=== PATIENT | female | born 1975 | race American Indian/Alaskan Native ===

== ENCOUNTER 2019-04-06 17:30 | Emergency (ER) | payer MEDICAID ==
--- NOTE | 2019-04-06 17:37 | EDM.PDOC ---
ED HPI GENERAL MEDICAL PROBLEM - General Chief Complaint: Back Pain or Injury Stated Complaint: AMBULANCE Time Seen by Provider: 04/06/19 17:37 Source of Information: Reports: Patient, EMS, EMS Notes Reviewed, RN, RN Notes Reviewed History Limitations: Reports: No Limitations - History of Present Illness INITIAL COMMENTS - FREE TEXT/NARRATIVE: Pt to ER per [facility] with c/o body aches, left flank pain, and lower abdominal pain. States she has had the chills but is unsure of fever. Denies N/V/D. States she has hx of low back pain. Denies urinary sx frequency, urgency, burning with urination. Denies chances of . Onset: Gradual Duration: Constant Location: Reports: Back Quality: Reports: Ache, Dull Severity: Moderate Improves with: Reports: None Worsens with: Reports: None Bilateral Lower Back Pain Score (Numeric/FACES): 8 - Related Data Allergies Allergy/AdvReac Type Severity Reaction Status Date / Time celecoxib Allergy Other Verified 04/06/19 17:21 hydrocodone Allergy Nausea and Verified 04/06/19 17:21 Vomiting ibuprofen Allergy Nausea and Verified 04/06/19 17:21 Vomiting ketorolac Allergy Nausea and Verified 04/06/19 17:21 Vomiting naproxen Allergy Other Verified 04/06/19 17:21 tramadol HCl [From Ultra] Allergy Other Verified 04/06/19 17:21 Home Meds: Home Meds Acetaminophen 2 tab PO Q6H PRN 07/11/15 [History] Ferrous Sulfate 1 tab PO DAILY 07/11/15 [History] Ibuprofen 600 mg PO 04/06/19 [History] Past Medical History HEENT History: Reports: None Cardiovascular History: Reports: Hypertension Respiratory History: Reports: None Genitourinary History: Reports: None 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 - Infectious Disease History Infectious Disease History: Reports: Chicken Pox - Past Surgical History Head Surgeries/Procedures: Reports: None GI Surgical History: Reports: Cholecystectomy Female Surgical History: Reports: Section Social & Family History - Family History Family Medical History: Noncontributory - Tobacco Use Smoking Status *Q: Current Some Day Smoker Years of Tobacco use: 30 Packs/Tins Daily: 0.5 Second Hand Smoke Exposure: No - Caffeine Use Caffeine Use: Reports: Coffee, Soda - Alcohol Use Date of Last Drink: 04/02/19 - Recreational Drug Use Recreational Drug Use: No - Living Situation & Occupation Living situation: Reports: with Family ED ROS GENERAL - Review of Systems Review Of Systems: ROS reveals no pertinent complaints other than HPI. ED EXAM,LOWER BACK PAIN/INJURY - Physical Exam Exam: See Below Exam Limited By: No Limitations General Appearance: Alert, WD/WN, No Apparent Distress Eye Exam: Bilateral Eye: EOMI, Normal Inspection Ears: Normal External Exam, Hearing Grossly Normal Nose: Normal Inspection Throat/Mouth: Normal Inspection, Normal Voice, No Airway Compromise Head: Atraumatic, Normocephalic Neck: Normal Inspection, Supple, Non-Tender, Full Range of Motion Respiratory/Chest: No Respiratory Distress, Lungs Clear, Normal Breath Sounds, No Accessory Muscle Use, Chest Non-Tender Cardiovascular: Normal Peripheral Pulses, Regular Rate, Rhythm, No Edema, No Gallop, No JVD, No Murmur, No Rub GI/Abdominal: Normal Bowel Sounds, Soft, Non-Tender (Female) Exam: Deferred Rectal (Female) Exam: Deferred Back Exam: Normal Inspection, Full Range of Motion, CVA Tenderness (L). No: CVA Tenderness (R) Extremities: Normal Inspection, Normal Range of Motion, Non-Tender, No Pedal Edema, Normal Capillary Refill Neurological: Alert, Normal Mood/Affect, Normal Dorsiflexion, CN II-XII Intact, Normal Plantar Flexion, Normal Gait, Normal Reflexes, No Motor/Sensory Deficits , Oriented x 3 Psychiatric: Normal Mood, Flat Affect Skin Exam: Warm, Dry, Intact, Normal Color, No Rash Lymphatic: No Adenopathy Course - Vital Signs Last Recorded V/S: Last Vital Signs Temp 102.8 F H 04/06/19 18:39 Pulse 114 H 04/06/19 18:39 Resp 20 04/06/19 18:39 BP 148/92 H 04/06/19 18:39 Pulse Ox 100 04/06/19 18:39 - Orders/Labs/Meds Orders: Active Orders 24 hr Category Date Time Status CULTURE URINE [RM] Stat Lab 04/06/19 17:44 Received Labs: Laboratory Tests 04/06/19 04/06/19 04/06/19 Range/Units 17:44 17:44 18:13 WBC 9.8 (5.0-10.0) 10^3/uL RBC 4.67 (4.2-5.4) 10^6/uL Hgb 9.5 L (12.0-16.0) g/dL Hct 32.2 L (37.0-47.0) % MCV 69.0 L (80-100) fL MCH 20.3 L (27.0-34.0) pg MCHC 29.5 L (33.0-35.0) g/dL Plt Count 255 (150-450) 10^3/uL Neut % (Auto) 91.6 H (42.2-75.2) % Lymph % (Auto) 5.6 L (20.5-50.1) % [place] % (Auto) 2.4 (2-8) % Eos % (Auto) 0.2 L (1.0-3.0) % Baso % (Auto) 0.2 (0.0-1.0) % Sodium (135-145) mmol/L Potassium (3.6-5.0) mmol/L Chloride (101-111) mmol/L Carbon Dioxide (21.0-31.0) mmol/L Anion Gap BUN (7-18) mg/dL Creatinine (0.6-1.3) mg/dL Est Cr Clr Drug Dosing mL/min Estimated GFR (MDRD) BUN/Creatinine Ratio Glucose (74-105) mg/dL Calcium (8.4-10.2) mg/dl Total Bilirubin (0.2-1.0) mg/dL AST (10-42) IU/L ALT (10-60) IU/L Alkaline Phosphatase (42-121) IU/L Total Protein (6.7-8.2) g/dl Albumin (3.2-5.5) g/dl Globulin Albumin/Globulin Ratio Urine Color Yellow (YELLOW) Urine Appearance Slightly cloudy (CLEAR) Urine pH 7.5 (5.0-9.0) Ur Specific [place] 1.015 (1.005-1.030) Urine Protein 100 H (NEGATIVE) Urine Glucose (UA) Negative (NEGATIVE) Urine Ketones Trace H (NEGATIVE) Urine Occult Blood Small H (NEGATIVE) Urine Nitrite Positive H (NEGATIVE) Urine Bilirubin Negative (NEGATIVE) Urine Urobilinogen 2.0 H (0.2-1.0) mg/dL Ur Leukocyte Esterase Large H (NEGATIVE) Urine RBC 5-10 H /HPF Urine WBC >100 H (0-5/HPF) /HPF Ur Epithelial Cells Moderate H (NOT SEEN) /HPF Amorphous Sediment Few (NOT SEEN) /HPF Urine Bacteria Many H (0-FEW/HPF) /HPF Urine Mucus Rare (NOT SEEN) /LPF Urine Other See note Urine HCG, Qual Negative 04/06/19 Range/Units 18:13 WBC (5.0-10.0) 10^3/uL RBC (4.2-5.4) 10^6/uL Hgb (12.0-16.0) g/dL Hct (37.0-47.0) % MCV (80-100) fL MCH (27.0-34.0) pg MCHC (33.0-35.0) g/dL Plt Count (150-450) 10^3/uL Neut % (Auto) (42.2-75.2) % Lymph % (Auto) (20.5-50.1) % [place] % (Auto) (2-8) % Eos % (Auto) (1.0-3.0) % Baso % (Auto) (0.0-1.0) % Sodium 134 L (135-145) mmol/L Potassium 3.7 (3.6-5.0) mmol/L Chloride 102 (101-111) mmol/L Carbon Dioxide 23.0 (21.0-31.0) mmol/L Anion Gap 12.7 BUN 15 (7-18) mg/dL Creatinine 0.6 (0.6-1.3) mg/dL Est Cr Clr Drug Dosing 92.17 mL/min Estimated GFR (MDRD) > 60 BUN/Creatinine Ratio 25.00 Glucose 104 (74-105) mg/dL Calcium 8.2 L (8.4-10.2) mg/dl Total Bilirubin 1.6 H (0.2-1.0) mg/dL AST 25 (10-42) IU/L ALT 18 (10-60) IU/L Alkaline Phosphatase 74 (42-121) IU/L Total Protein 7.8 (6.7-8.2) g/dl Albumin 3.6 (3.2-5.5) g/dl Globulin 4.2 Albumin/Globulin Ratio 0.86 Urine Color (YELLOW) Urine Appearance (CLEAR) Urine pH (5.0-9.0) Ur Specific [place] (1.005-1.030) Urine Protein (NEGATIVE) Urine Glucose (UA) (NEGATIVE) Urine Ketones (NEGATIVE) Urine Occult Blood (NEGATIVE) Urine Nitrite (NEGATIVE) Urine Bilirubin (NEGATIVE) Urine Urobilinogen (0.2-1.0) mg/dL Ur Leukocyte Esterase (NEGATIVE) Urine RBC /HPF Urine WBC (0-5/HPF) /HPF Ur Epithelial Cells (NOT SEEN) /HPF Amorphous Sediment (NOT SEEN) /HPF Urine Bacteria (0-FEW/HPF) /HPF Urine Mucus (NOT SEEN) /LPF Urine Other Urine HCG, Qual Meds: Medications Discontinued Medications Generic Name Dose Route Start Last Admin Trade Name Freq PRN Reason Stop Dose Admin Nitrofurantoin Macrocrystals 100 mg 04/06/19 18:58 04/06/19 19:04 Macrobid PO 04/06/19 18:59 100 mg ONETIME ONE Administration Departure - Departure Time of Disposition: 19:14 Disposition: Home, Self-Care 01 Condition: Fair Clinical Impression: Bacterial vaginosis UTI (urinary tract infection) Qualifiers: Urinary tract infection type: site unspecified Hematuria presence: without hematuria Qualified Code(s): N39.0 - Urinary tract infection, site not specified - Discharge Information *PRESCRIPTION DRUG MONITORING PROGRAM REVIEWED*: No *COPY OF PRESCRIPTION DRUG MONITORING REPORT IN PATIENT ELIZABETH: No Instructions: Urinary Tract Infection, Adult, [id number], Bacterial Vaginosis , [id number] Forms: ED Department Discharge Additional Instructions: RX: Macrobid, Flagyl Drink plenty of fluids May use Tylenol and/or Ibuprofen as directed for pain Follow up with your primary care facility if no improvement - My Orders Last 24 Hours: My Active Orders 04/06/19 17:44 CULTURE URINE [RM] Stat - Assessment/Plan Last 24 Hours: My Active Orders 04/06/19 17:44 CULTURE URINE [RM] Stat
[2019-04-06 18:40] VITALS: BP 148/92; PULSE 114
[2019-04-06 18:40] LABS: ANION GAP 12.7; CHLORIDE,CL 102 mmol/L (101-111); SODIUM,NA 134 mmol/L (135-145)
[2019-04-06] MEDS ORDERED: Nitrofurantoin Monohydrate/Macrocrystalline 100 MG Cap PO ONE (18:58)
[2019-04-06] MEDS ORDERED: metroNIDAZOLE 250 MG Tab PO ONE (19:16)
== END 2019-04-06 19:27 | disposition home or self-care (01) ==
LOC: DL.ED 17:30
DX: N76.0 Acute vaginitis (principal); N39.0 Urinary tract infection, site not specified; F17.210 Nicotine dependence, cigarettes, uncomplicated; D64.9 Anemia, unspecified; Z79.899 Other long term (current) drug therapy; Z88.8 Allergy status to other drugs, medicaments and biological substances
CPT/HCPCS: 36415; 80053; 81001; 81025; 85025; 87086; 99283; A9270; 87088; 87186

== ENCOUNTER 2019-09-10 19:25 | Emergency (ER) | payer MEDICAID, OTHER ==
[2019-09-10 19:42] VITALS: BP 180/95; PULSE 89
--- NOTE | 2019-09-10 19:45 | EDM.PDOC ---
ED HPI GENERAL MEDICAL PROBLEM - General Chief Complaint: Back Pain or Injury Stated Complaint: FELL AND HURT BACK Time Seen by Provider: 09/10/19 19:41 Source of Information: Reports: Patient History Limitations: Reports: No Limitations - History of Present Illness INITIAL COMMENTS - FREE TEXT/NARRATIVE: states fell onto low back this AM, tried advil but '0' using lido patch still '0 '. Lower Back Pain Score (Numeric/FACES): 9 - Related Data Allergies Allergy/AdvReac Type Severity Reaction Status Date / Time celecoxib Allergy Other Verified 09/10/19 19:33 hydrocodone Allergy Nausea and Verified 09/10/19 19:33 Vomiting ketorolac Allergy Nausea and Verified 09/10/19 19:33 Vomiting naproxen Allergy Other Verified 09/10/19 19:33 tramadol HCl [From Ultra] Allergy Other Verified 09/10/19 19:33 Home Meds: Home Meds Acetaminophen 2 tab PO Q6H PRN 07/11/15 [History] Ibuprofen 600 mg PO ASDIRECTED 04/06/19 [History] Past Medical History HEENT History: Reports: None Cardiovascular History: Reports: None Respiratory History: Reports: None Genitourinary History: Reports: None 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 - Infectious Disease History Infectious Disease History: Reports: Chicken Pox - Past Surgical History Head Surgeries/Procedures: Reports: None GI Surgical History: Reports: Cholecystectomy Female Surgical History: Reports: Section Social & Family History - Family History Family Medical History: Noncontributory - Caffeine Use Caffeine Use: Reports: Coffee - Living Situation & Occupation Living situation: Reports: with Family ED ROS GENERAL - Review of Systems Review Of Systems: Comprehensive ROS is negative, except as noted in HPI. ED EXAM,LOWER BACK PAIN/INJURY - Physical Exam Exam: See Below Exam Limited By: No Limitations General Appearance: Alert, WD/WN, Mild Distress, Other (tearful) Ears: Hearing Grossly Normal Throat/Mouth: Normal Voice, No Airway Compromise Head: Atraumatic Neck: Non-Tender, Full Range of Motion Respiratory/Chest: No Respiratory Distress Cardiovascular: Regular Rate, Rhythm GI/Abdominal: Soft, Non-Tender Back Exam: Muscle Spasm, Paraspinal Tenderness, Other (left LS region with minimal sciatica, NV wnl, gait limited to pain) Neurological: Alert, No Motor/Sensory Deficits, Oriented x 3 Psychiatric: Tearful Skin Exam: Warm, Dry, Normal Color Lymphatic: No Adenopathy Course - Vital Signs Last Recorded V/S: Last Vital Signs Temp 36.3 C 09/10/19 19:36 Pulse 89 09/10/19 19:36 Resp 20 09/10/19 19:36 BP 180/95 H 09/10/19 19:36 Pulse Ox 99 09/10/19 19:36 - Orders/Labs/Meds Orders: Active Orders 24 hr Category Date Time Status Lumbar Spine 2 or 3V [CR] Urgent Exams 09/10/19 19:40 Taken Orphenadrine [Norflex] Med 09/10/19 20:24 Once 60 mg IM ONETIME ONE - Re-Assessments/Exams Free Text/Narrative Re-Assessment/Exam: 09/10/19 20:25 results discussed with pt who states lido patch works little. Departure - Departure Time of Disposition: 20:25 Disposition: Home, Self-Care 01 Condition: Good Clinical Impression: Lumbar contusion Qualifiers: Encounter type: initial encounter Qualified Code(s): S30.0XXA - Contusion of lower back and pelvis, initial encounter Low back pain Qualifiers: Chronicity: unspecified Back pain laterality: left Sciatica presence: without sciatica Qualified Code(s): M54.5 - Low back pain - Discharge Information Forms: ED Department Discharge Additional Instructions: 1) rest and avoid bending lifting straining 2) try ice or heat to sore area 3) follow up at clinic 4) may try muscle relaxant Sepsis Event Note - Focused Exam Vital Signs: Vital Signs Temp Pulse Resp BP Pulse Ox 09/10/19 19:36 36.3 C 89 20 180/95 H 99 Date Exam was Performed: 09/10/19 Time Exam was Performed: 20:25 - My Orders Last 24 Hours: My Active Orders 03/28/20 19:40 Lumbar Spine 2 or 3V [CR] Urgent 09/10/19 20:24 Orphenadrine [Norflex] 60 mg IM ONETIME ONE - Assessment/Plan Last 24 Hours: My Active Orders 09/10/19 19:40 Lumbar Spine 2 or 3V [CR] Urgent 09/10/19 20:24 Orphenadrine [Norflex] 60 mg IM ONETIME ONE
== END 2019-09-10 20:57 | disposition home or self-care (01) ==
LOC: DL.ED 19:25
DX: S30.0XXA Contusion of lower back and pelvis, initial encounter (principal); Z88.6 Allergy status to analgesic agent; Z88.8 Allergy status to other drugs, medicaments and biological substances; W19.XXXA Unspecified fall, initial encounter
CPT/HCPCS: 72100; 96372; 99283; J2360

== ENCOUNTER 2020-03-22 13:18 | Emergency (ER) | payer MEDICAID ==
[2020-03-22 13:15] VITALS: BP 131/91; PULSE 104
[2020-03-22] MEDS ORDERED: Sodium Chloride 0.9% 10 ML Syringe FLUSH PRN (13:27)
--- NOTE | 2020-03-22 13:53 | CR ---
PROCEDURE INFORMATION: Exam: XR Chest, 1 View Exam date and time: 03/22/2020 1:41 PM Age: 44 years old Clinical indication: Chest pain; Type not specified TECHNIQUE: Imaging protocol: XR of the chest Views: 1 view. COMPARISON: CR Chest 1V Frontal 02/22/2019 2:16 PM FINDINGS: Lungs: Mild gradual hazy increased opacity at the left lower chest is likely related to overlying breast tissue, favored over hazy infiltrate. No dense consolidation or adryan pulmonary edema. Pleural space: Unremarkable. No pleural effusion. No pneumothorax. Heart/Mediastinum: Unremarkable. No cardiomegaly. Vasculature: Aorta is slightly tortuous. Bones/joints: No acute osseous abnormality. IMPRESSION: 1. No acute cardiopulmonary abnormality. Minimal hazy opacity at the left lower chest is likely related to overlying breast tissue rather than hazy infiltrate.
--- NOTE | 2020-03-22 13:53 | EDM.PDOC ---
ED HPI GENERAL MEDICAL PROBLEM - General Chief Complaint: Chest Pain Stated Complaint: AMBULANCE Time Seen by Provider: 03/22/20 13:18 Source of Information: Reports: Patient, EMS, RN, RN Notes Reviewed History Limitations: Reports: No Limitations - History of Present Illness INITIAL COMMENTS - FREE TEXT/NARRATIVE: Patient presents to the ED via EMS from [facility] with complaints of CP. Per the patient, the chest pain started abruptly about 1030 this morning. She describes the pain as 8/10 pressure to her midchest, which radiates through to her back. She denies shortness of breath, palpitations, fever, cough, nausea, vomiting. She denies experiencing similar pain priorly. She reports no aggravating factors and denies any strenuous activity when the pain began. The patient states she did take her Losartan this morning, but has not taken any additional medications. Treatments CHEF: Reports: Aspirin, IV/IO, NSAIDS, Other Medication(s), Oxygen Mid-Anterior Chest Pain Score (Numeric/FACES): 6 - Related Data Allergies Allergy/AdvReac Type Severity Reaction Status Date / Time celecoxib Allergy Other Verified 03/22/20 13:29 hydrocodone Allergy Nausea and Verified 03/22/20 13:29 Vomiting ketorolac Allergy Nausea and Verified 03/22/20 13:29 Vomiting naproxen Allergy Other Verified 03/22/20 13:29 tramadol HCl [From Ultram] Allergy Other Verified 03/22/20 13:29 Home Meds: Home Meds Acetaminophen 2 tab PO Q6H PRN 07/11/15 [History] Ibuprofen 600 mg PO ASDIRECTED 04/06/19 [History] Baclofen 10 mg PO BEDTIME PRN 03/22/20 [History] Calcium Citrate/Vitamin D3 [Calcium Citrate - Vit D Caplet] 1 each PO 03/22/20 [History] Chlorthalidone 25 mg PO DAILY 03/22/20 [History] Cholecalciferol (Vitamin D3) [Vitamin D] 1,000 unit PO DAILY 03/22/20 [History] Ferrous Gluconate 324 mg PO 03/22/20 [History] Gabapentin [Neurontin] 600 mg PO BID 03/22/20 [History] Losartan [Cozaar] 50 mg PO DAILY 03/22/20 [History] Multivitamin 1 each PO DAILY 03/22/20 [History] Past Medical History HEENT History: Reports: None Cardiovascular History: Reports: None Respiratory History: Reports: None 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 - Infectious Disease History Infectious Disease History: Reports: Chicken Pox - Past Surgical History Head Surgeries/Procedures: Reports: None GI Surgical History: Reports: Cholecystectomy Female Surgical History: Reports: Section Social & Family History - Family History Family Medical History: Noncontributory - Caffeine Use Caffeine Use: Reports: Coffee - Living Situation & Occupation Living situation: Reports: with Family ED ROS GENERAL - Review of Systems Review Of Systems: Comprehensive ROS is negative, except as noted in HPI. ED EXAM, GENERAL - Physical Exam Exam: See Below Exam Limited By: No Limitations General Appearance: Alert, No Apparent Distress Throat/Mouth: Normal Voice, No Airway Compromise Head: Atraumatic, Normocephalic Neck: Normal Inspection, Supple, Non-Tender, Full Range of Motion Respiratory/Chest: No Respiratory Distress, Lungs Clear, Normal Breath Sounds, No Accessory Muscle Use, Chest Non-Tender Cardiovascular: Normal Peripheral Pulses, Regular Rate, Rhythm, No Edema, No Gallop, No JVD, No Murmur, No Rub, Tachycardia GI/Abdominal: Normal Bowel Sounds, Soft, Non-Tender, No Distention (Female) Exam: Deferred Rectal (Female) Exam: Deferred Extremities: Normal Inspection, Normal Range of Motion, No Pedal Edema, Normal Capillary Refill Neurological: Alert, Oriented, CN II-XII Intact, Normal Cognition, Normal Gait, No Motor/Sensory Deficits Psychiatric: Normal Affect, Normal Mood Skin Exam: Warm, Dry, Intact, Normal Color, No Rash EKG INTERPRETATION EKG Date: 03/22/20 Time: 13:19 Rhythm: Other (Sinus Tach) Rate (Beats/Min): 103 [place]: LAD-Left [place] Deviation P-Wave: Present QRS: Other (R wave progression with Q waves in anterior leads) ST-T: Normal QT: Prolonged (Borderline) Comparison: No Change (From 02/22/19) EKG Interpretation Comments: No acute ischemic changes Course - Vital Signs Last Recorded V/S: Last Vital Signs Temp 98.1 F 03/22/20 13:14 Pulse 104 H 03/22/20 13:14 Resp 16 03/22/20 13:14 BP 131/91 H 03/22/20 13:14 Pulse Ox 99 03/22/20 13:14 - Orders/Labs/Meds Orders: Active Orders 24 hr Category Date Time Status EKG 12 Lead [EKG Documentation Completion] [] STAT Care 03/22/20 13:23 Active EKG 12 Lead [EKG Documentation Completion] [] STAT Care 03/22/20 13:26 Active Peripheral IV Care [] . DIRECTED Care 03/22/20 13:27 Active CHLAMYDIA AND GONORRHEA BY TMA Routine Lab 03/22/20 13:32 Received Sodium Chloride 0.9% [Saline Flush] Med 03/22/20 13:27 Active 10 ml FLUSH ASDIRECTED PRN Peripheral IV Insertion Adult [OM.PC] Stat Oth 03/22/20 13:26 Ordered Medication Orders Sodium Chloride (Saline Flush) 10 ml FLUSH ASDIRECTED PRN PRN Reason: Keep Vein Open Labs: Laboratory Tests 03/22/20 03/22/20 03/22/20 Range/Units 13:32 13:32 13:32 WBC 5.7 (5.0-10.0) 10^3/uL RBC 4.35 (4.2-5.4) 10^6/uL Hgb 9.3 L (12.0-16.0) g/dL Hct 31.7 L (37.0-47.0) % MCV 72.9 L D (80-100) fL MCH 21.4 L (27.0-34.0) pg MCHC 29.3 L (33.0-35.0) g/dL Plt Count 304 (150-450) 10^3/uL Neut % (Auto) 60.0 (42.2-75.2) % Lymph % (Auto) 25.0 (20.5-50.1) % [place] % (Auto) 13.7 H (2-8) % Eos % (Auto) 0.9 L (1.0-3.0) % Baso % (Auto) 0.4 (0.0-1.0) % D-Dimer, Quantitative (0-400) ng/mL Sodium (136-145) mmol/L Potassium (3.5-5.1) mmol/L Chloride (98-107) mmol/L Carbon Dioxide (21-32) mmol/L Anion Gap (7-13) mEq/L BUN (7-18) mg/dL Creatinine (0.55-1.02) mg/dL Est Cr Clr Drug Dosing Estimated GFR (MDRD) BUN/Creatinine Ratio (No establ ref range) Glucose (74-99) mg/dL Calcium (8.5-10.1) mg/dL Magnesium (1.8-2.4) mg/dL Total Bilirubin (0.2-1.0) mg/dL AST (15-37) U/L ALT (14-59) U/L Alkaline Phosphatase (46-116) U/L Troponin I (0.000-0.056) ng/mL Total Protein (6.4-8.2) g/dL Albumin (3.4-5.0) g/dL Globulin Albumin/Globulin Ratio Amylase (25-115) U/L Lipase (73-393) U/L Urine Color (YELLOW) Urine Appearance (CLEAR) Urine pH (5.0-9.0) Ur Specific [place] (1.005-1.030) Urine Protein (NEGATIVE) Urine Glucose (UA) (NEGATIVE) Urine Ketones (NEGATIVE) Urine Occult Blood (NEGATIVE) Urine Nitrite (NEGATIVE) Urine Bilirubin (NEGATIVE) Urine Urobilinogen (0.2-1.0) mg/dL Ur Leukocyte Esterase (NEGATIVE) Urine RBC /HPF Urine WBC (0-5/HPF) /HPF Ur Epithelial Cells (NOT SEEN) /HPF Urine Bacteria (0-FEW/HPF) /HPF Urine Mucus (NOT SEEN) /LPF Urine HCG, Qual Negative Urine Opiates Screen Negative (NEGATIVE) Ur Oxycodone Screen Negative (NEGATIVE) Urine Methadone Screen Negative (NEGATIVE) Ur Barbiturates Screen Negative (NEGATIVE) U Tricyclic Antidepress Negative (NEGATIVE) Ur Phencyclidine Scrn Negative (NEGATIVE) Ur Amphetamine Screen Negative (NEGATIVE) U Methamphetamines Scrn Positive H (NEGATIVE) Urine MDMA Screen Negative (NEGATIVE) U Benzodiazepines Scrn Negative (NEGATIVE) Urine Cocaine Screen Negative (NEGATIVE) U Marijuana (THC) Screen Negative (NEGATIVE) 03/22/20 03/22/20 03/22/20 Range/Units 13:36 13:36 13:36 WBC (5.0-10.0) 10^3/uL RBC (4.2-5.4) 10^6/uL Hgb (12.0-16.0) g/dL Hct (37.0-47.0) % MCV (80-100) fL MCH (27.0-34.0) pg MCHC (33.0-35.0) g/dL Plt Count (150-450) 10^3/uL Neut % (Auto) (42.2-75.2) % Lymph % (Auto) (20.5-50.1) % [place] % (Auto) (2-8) % Eos % (Auto) (1.0-3.0) % Baso % (Auto) (0.0-1.0) % D-Dimer, Quantitative 171 (0-400) ng/mL Sodium 141 (136-145) mmol/L Potassium 3.6 (3.5-5.1) mmol/L Chloride 100 (98-107) mmol/L Carbon Dioxide 27 (21-32) mmol/L Anion Gap 17.6 H (7-13) mEq/L BUN 19 H (7-18) mg/dL Creatinine 0.64 (0.55-1.02) mg/dL Est Cr Clr Drug Dosing TNP Estimated GFR (MDRD) > 60 BUN/Creatinine Ratio 29.7 (No establ ref range) Glucose 92 (74-99) mg/dL Calcium 8.7 (8.5-10.1) mg/dL Magnesium 1.9 (1.8-2.4) mg/dL Total Bilirubin 0.9 (0.2-1.0) mg/dL AST 211 H (15-37) U/L ALT 373 H (14-59) U/L Alkaline Phosphatase 123 H (46-116) U/L Troponin I < 0.017 (0.000-0.056) ng/mL Total Protein 8.1 (6.4-8.2) g/dL Albumin 3.6 (3.4-5.0) g/dL Globulin 4.5 Albumin/Globulin Ratio 0.8 Amylase 40 (25-115) U/L Lipase 99 (73-393) U/L Urine Color Yellow (YELLOW) Urine Appearance Slightly cloudy (CLEAR) Urine pH 6.0 (5.0-9.0) Ur Specific [place] 1.025 (1.005-1.030) Urine Protein Trace H (NEGATIVE) Urine Glucose (UA) Negative (NEGATIVE) Urine Ketones Negative (NEGATIVE) Urine Occult Blood Trace-intact H (NEGATIVE) Urine Nitrite Negative (NEGATIVE) Urine Bilirubin Negative (NEGATIVE) Urine Urobilinogen 0.2 (0.2-1.0) mg/dL Ur Leukocyte Esterase Negative (NEGATIVE) Urine RBC 0-5 /HPF Urine WBC 0-5 (0-5/HPF) /HPF Ur Epithelial Cells Few (NOT SEEN) /HPF Urine Bacteria Moderate H (0-FEW/HPF) /HPF Urine Mucus Moderate H (NOT SEEN) /LPF Urine HCG, Qual Urine Opiates Screen (NEGATIVE) Ur Oxycodone Screen (NEGATIVE) Urine Methadone Screen (NEGATIVE) Ur Barbiturates Screen (NEGATIVE) U Tricyclic Antidepress (NEGATIVE) Ur Phencyclidine Scrn (NEGATIVE) Ur Amphetamine Screen (NEGATIVE) U Methamphetamines Scrn (NEGATIVE) Urine MDMA Screen (NEGATIVE) U Benzodiazepines Scrn (NEGATIVE) Urine Cocaine Screen (NEGATIVE) U Marijuana (THC) Screen (NEGATIVE) Meds: Medications Generic Name Dose Route Start Last Admin Trade Name Freq PRN Reason Stop Dose Admin Sodium Chloride 10 ml 03/22/20 13:27 Saline Flush FLUSH ASDIRECTED PRN Keep Vein Open Discontinued Medications Generic Name Dose Route Start Last Admin Trade Name Freq PRN Reason Stop Dose Admin Al Hydroxide/Mg Hydroxide 30 ml 03/22/20 14:38 03/22/20 14:47 Gi Cocktail PO 03/22/20 14:39 30 ml ONETIME ONE Administration Azithromycin 1,000 mg 03/22/20 14:38 03/22/20 14:46 Zithromax PO 03/22/20 14:39 1,000 mg ONETIME ONE Administration Ceftriaxone Sodium 1 gm/ 50 mls @ 100 mls/hr 03/22/20 14:39 03/22/20 14:53 Sodium Chloride IV 03/22/20 15:08 100 mls/hr ONETIME ONE Administration - Radiology Interpretation Free Text/Narrative:: CXR: No acute process. See Rad report. - Re-Assessments/Exams Free Text/Narrative Re-Assessment/Exam: 03/22/20 15:09 Call made to Angela Caraballo NP at [facility] to review findings of ER visit and ensure follow up. Departure - Departure Time of Disposition: 15:13 Disposition: Home, Self-Care 01 Condition: Good Clinical Impression: Atypical chest pain, Alcoholic liver disease, STD exposure Instructions: Nonspecific Chest Pain, Adult, [id number], Alcoholic Liver Disease, [id number] Forms: ED Department Discharge Additional Instructions: Rx: Omeprazole 20mg Abstain from alcohol and recreational drug use due to liver damage. Also avoid ibuprofen and tylenol. Follow up in clinic next week for recheck and further evaluation. Sepsis Event Note (ED) - Evaluation Sepsis Screening Result: No Definite Risk - Focused Exam Vital Signs: Vital Signs Temp Pulse Resp BP Pulse Ox 03/22/20 13:14 98.1 F 104 H 16 131/91 H 99
[2020-03-22 14:08] LABS: ANION GAP 17.6 mEq/L (7-13); CHLORIDE,CL 100 mmol/L (98-107); SODIUM,NA 141 mmol/L (136-145)
[2020-03-22] MEDS ORDERED: GI Cocktail Oral Solution 30 ML PO ONE (14:38)
[2020-03-22] MEDS ORDERED: Azithromycin 250 MG Tab PO ONE (14:38)
[2020-03-22] MEDS ORDERED: cefTRIAXone 1 GM in Sodium Chloride 0.9% 50 ML IV ONE (14:39)
[2020-03-26 16:02] LABS: C.TRACHOMATIS BY TMA Negative (Negative); N.GONORRHOEAE BY TMA Negative (Negative)
== END 2020-03-22 15:35 | disposition home or self-care (01) ==
LOC: DL.ED 13:18
DX: R07.89 Other chest pain (principal); K70.9 Alcoholic liver disease, unspecified; Z20.2 Contact with and (suspected) exposure to infections with a predominantly sexual mode of transmission; E66.9 Obesity, unspecified; Z68.28 Body mass index [BMI] 28.0-28.9, adult; Z88.8 Allergy status to other drugs, medicaments and biological substances; Z88.5 Allergy status to narcotic agent; Z88.6 Allergy status to analgesic agent
CPT/HCPCS: 36415; 71045; 80053; 80305; 81001; 81025; 82150; 83690; 83735; 84484; 85025; 85379; 87491; 87591; 93005; 96365; 99285; A9270; J0696; J7050; 93010; 99284

== ENCOUNTER 2020-10-10 03:48 | Emergency (ER) | payer MEDICAID, OTHER ==
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
[2020-10-10] MEDS ORDERED: Iopamidol 612 MG/ML 100 ML Bottle IVPUSH ONE (04:29)
[2020-10-10] MEDS ORDERED: Ondansetron 4 MG/2 ML SDV IVPUSH ONE (04:30)
[2020-10-10] MEDS ORDERED: fentaNYL 100 MCG/2 ML SDV IVPUSH ONE (04:30)
[2020-10-10 04:32] LABS: ANION GAP 14.9 mEq/L (7-13); CHLORIDE,CL 104 mmol/L (98-107); SODIUM,NA 138 mmol/L (136-145)
[2020-10-10] MEDS ORDERED: Sodium Chloride 0.9% 1,000 ML IV ONE (04:36)
[2020-10-10] MEDS ORDERED: Potassium Chloride 10 MEQ Tab.ER PO ONE (04:36)
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
[2020-10-10 07:05] VITALS: BP 144/89; PULSE 88
== END 2020-10-10 07:05 | disposition home or self-care (01) ==
LOC: DL.ED 03:48
DX: R07.81 Pleurodynia (principal); S30.1XXA Contusion of abdominal wall, initial encounter; Z87.891 Personal history of nicotine dependence; E66.9 Obesity, unspecified; Z88.5 Allergy status to narcotic agent; Z88.6 Allergy status to analgesic agent; Z79.899 Other long term (current) drug therapy; Z90.49 Acquired absence of other specified parts of digestive tract; Y04.0XXA Assault by unarmed brawl or fight, initial encounter
CPT/HCPCS: 36415; 71260; 74177; 80053; 80305; 80307; 81001; 82150; 83690; 85025; 85610; 96374; 96375; 99283; 99285; A9270; J2405; J3010; J7030; Q9967

== ENCOUNTER 2021-01-12 23:00 | Emergency (ER) | payer MEDICAID ==
[2021-01-12 23:10] VITALS: BP 130/80; PULSE 103
[2021-01-12 23:35] LABS: AMPHETAMINES,URINE NEGATIVE (NEGATIVE); BARBITURATES,URINE NEGATIVE (NEGATIVE); BENZODIAZEPINE,URINE NEGATIVE (NEGATIVE); MDMA (ECSTASY), URINE NEGATIVE (NEGATIVE); METHADONE,URINE NEGATIVE (NEGATIVE); METHAMPHETAMINES,URINE NEGATIVE (NEGATIVE); OPIATES,URINE NEGATIVE (NEGATIVE); OXYCODONE,URINE NEGATIVE (NEGATIVE); PHENCYCLIDINE,URINE NEGATIVE (NEGATIVE); TCA,URINE NEGATIVE (NEGATIVE)
[2021-01-12 23:48] LABS: ANION GAP 16.1 mEq/L (7-13); CHLORIDE,CL 107 mmol/L (98-107); SODIUM,NA 144 mmol/L (136-145)
[2021-01-12 23:53] LABS: ACETAMINOPHEN 0 ug/mL (10-30 (Therapeutic))
[2021-01-12] MEDS ORDERED: MVI, Adult with Vitamin K 10 ML, Folic Acid 1 MG, Thiamine 100 MG in Lactated Ringers 1... IV ONE ×4 (23:57)
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
--- NOTE | 2021-01-13 01:36 | CR ---
PROCEDURE INFORMATION: Exam: XR Chest Exam date and time: 01/12/2021 11:47 PM Age: 45 years old Clinical indication: Other: Chest pain TECHNIQUE: Imaging protocol: XR of the chest. Views: 1 view. COMPARISON: CR Chest 1V Frontal 03/22/2020 1:41 PM FINDINGS: Lungs: Unremarkable. No consolidation. Pleural spaces: Unremarkable. No pleural effusion. No pneumothorax. Heart/Mediastinum: Unremarkable. No cardiomegaly. Bones/joints: Unremarkable. IMPRESSION: 1. No acute findings. 2. No change
== END 2021-01-13 00:25 | disposition home or self-care (01) ==
LOC: DL.ED 23:00
DX: R07.89 Other chest pain (principal); F10.129 Alcohol abuse with intoxication, unspecified; I10 Essential (primary) hypertension; E66.9 Obesity, unspecified; Z68.30 Body mass index [BMI] 30.0-30.9, adult; Y90.8 Blood alcohol level of 240 mg/100 ml or more; Z87.891 Personal history of nicotine dependence; Z79.899 Other long term (current) drug therapy; Z88.6 Allergy status to analgesic agent; Z88.5 Allergy status to narcotic agent
CPT/HCPCS: 36415; 71045; 80053; 80143; 80179; 80305-QW; 80307; 81001; 82140; 82150; 83605; 83690; 84484; 85025; 87040; 93005; 99283; 99285-25

== ENCOUNTER 2021-02-22 20:16 | Emergency (ER) | payer MEDICAID ==
[2021-02-22 20:37] VITALS: BP 147/95; PULSE 107
[2021-02-22 21:34] LABS: ANION GAP 19.4 mEq/L (7-13); CHLORIDE,CL 102 mmol/L (98-107); SODIUM,NA 139 mmol/L (136-145)
[2021-02-22] MEDS ORDERED: Potassium Chloride 20 MEQ in Premix Bag 1 BAG IV ONE (21:50)
[2021-02-22] MEDS ORDERED: Potassium Chloride 10 MEQ Tab.ER PO ONE (23:20)
[2021-02-22] MEDS ORDERED: Azithromycin 250 MG Tab PO ONE (23:56)
[2021-02-22] MEDS ORDERED: cefTRIAXone 500 MG, Lidocaine 1% 1 ML IM ONE ×2 (23:56)
--- NOTE | 2021-02-23 00:04 | EDM.PDOC ---
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 Notes not had regular periord for two years. Reported to RN was in clinic and had STD testing done and was told to come back for treatment as gonorrhea positive. lower abdominal cramping at times. Back Pain Score (Numeric/FACES): 8 - Related Data Allergies Allergy/AdvReac Type Severity Reaction Status Date / Time celecoxib Allergy Other Verified 01/12/21 23:13 hydrocodone Allergy Nausea and Verified 01/12/21 23:13 Vomiting ketorolac Allergy Nausea and Verified 01/12/21 23:13 Vomiting naproxen Allergy Other Verified 01/12/21 23:13 tramadol HCl [From Ultram] Allergy Other Verified 01/12/21 23:13 Home Meds: Home Meds Acetaminophen 2 tab PO Q6H PRN 07/11/15 [History] Ibuprofen 600 mg PO ASDIRECTED 04/06/19 [History] Baclofen 10 mg PO BEDTIME PRN 03/22/20 [History] Calcium Citrate/Vitamin D3 [Calcium Citrate - Vit D Caplet] 1 each PO 03/22/20 [History] Chlorthalidone 25 mg PO DAILY 03/22/20 [History] Cholecalciferol (Vitamin D3) [Vitamin D] 1,000 unit PO DAILY 03/22/20 [History] Ferrous Gluconate 324 mg PO 03/22/20 [History] Gabapentin [Neurontin] 600 mg PO BID 03/22/20 [History] Losartan [Cozaar] 50 mg PO DAILY 03/22/20 [History] Multivitamin 1 each PO DAILY 03/22/20 [History] Past Medical History HEENT History: Reports: None Cardiovascular History: Reports: None Respiratory History: Reports: None Genitourinary History: Reports: None 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 - Infectious Disease History Infectious Disease History: Reports: Chicken Pox Other Infectious Disease History: no chicken pox at this time. prior hx of. - Past Surgical History Head Surgeries/Procedures: Reports: None GI Surgical History: Reports: Cholecystectomy Female Surgical History: Reports: Section Other Female Surgeries/Procedures: CYSTOSCOPY WITH BLADDER BIOPSY Social & Family History - Family History Family Medical History: No Pertinent Family History - Tobacco Use Tobacco Use Status *Q: Current Some Day Tobacco User Years of Tobacco use: 26 Packs/Tins Daily: 0.2 - Caffeine Use Caffeine Use: Reports: Coffee - Recreational Drug Use Recreational Drug Use: No - Living Situation & Occupation Living situation: Reports: with Family ED ROS GENERAL - Review of Systems Review Of Systems: Comprehensive ROS is negative, except as noted in HPI. ED EXAM, RENAL/ - Physical Exam Exam: See Below Exam Limited By: No Limitations General Appearance: Alert, Anxious, Mild Distress Eye Exam: Bilateral Eye: EOMI Ears: Normal External Exam Nose: Normal Inspection Throat/Mouth: Normal Inspection Head: Atraumatic, Normocephalic Neck: Normal Inspection Respiratory/Chest: No Respiratory Distress, Lungs Clear, Normal Breath Sounds Cardiovascular: Normal Peripheral Pulses, Regular Rate, Rhythm GI/Abdominal: Normal Bowel Sounds, Soft, Tender (suprapubic) (Female) Exam: Normal External Exam, Vaginal Bleeding. No: Cervix Motion Tenderness Extremities: Normal Inspection Neurological: Alert, Oriented Psychiatric: Normal Affect, Normal Mood Skin Exam: Warm, Dry, Intact, Normal Color Course - Vital Signs Last Recorded V/S: Last Vital Signs Temp 97 F 02/22/21 20:31 Pulse 107 H 02/22/21 20:31 Resp 18 02/22/21 20:31 BP 147/95 H 02/22/21 20:31 Pulse Ox 97 02/22/21 20:31 - Orders/Labs/Meds Labs: Laboratory Tests 02/22/21 02/22/21 02/22/21 Range/Units 20:52 20:52 20:52 WBC 6.2 (5.0-10.0) 10^3/uL RBC 3.61 L (4.2-5.4) 10^6/uL Hgb 8.8 L (12.0-16.0) g/dL Hct 28.4 L (37.0-47.0) % MCV 78.7 L (80-100) fL MCH 24.4 L (27.0-34.0) pg MCHC 31.0 L (33.0-35.0) g/dL Plt Count 188 (150-450) 10^3/uL Neut % (Auto) 55.0 (42.2-75.2) % Lymph % (Auto) 32.0 (20.5-50.1) % [place] % (Auto) 10.4 H (2-8) % Eos % (Auto) 2.3 (1.0-3.0) % Baso % (Auto) 0.3 (0.0-1.0) % Sodium 139 (136-145) mmol/L Potassium 2.4 L* (3.5-5.1) mmol/L Chloride 102 (98-107) mmol/L Carbon Dioxide 20 L (21-32) mmol/L Anion Gap 19.4 H (7-13) mEq/L BUN 16 (7-18) mg/dL Creatinine 0.59 (0.55-1.02) mg/dL Est Cr Clr Drug Dosing 91.82 mL/min Estimated GFR (MDRD) > 60 BUN/Creatinine Ratio 27.1 (No establ ref range) Glucose 92 (70-99) mg/dL Lactic Acid 2.0 (0.4-2.0) mmol/L Calcium 7.6 L (8.5-10.1) mg/dL Total Bilirubin 0.8 (0.2-1.0) mg/dL AST 54 H (15-37) U/L ALT 30 (14-59) U/L Alkaline Phosphatase 125 H (46-116) U/L Total Protein 7.6 (6.4-8.2) g/dL Albumin 3.1 L (3.4-5.0) g/dL Globulin 4.5 Albumin/Globulin Ratio 0.69 HCG, Qual Negative Meds: Medications Discontinued Medications Generic Name Dose Route Start Last Admin Trade Name Freq PRN Reason Stop Dose Admin Acetaminophen 650 mg 02/23/21 00:06 02/23/21 00:23 Acetaminophen 325 Mg Tab PO 02/23/21 00:07 650 mg NOW ONE Administration Azithromycin 1,000 mg 02/22/21 23:56 02/23/21 00:22 Azithromycin 250 Mg Tab PO 02/22/21 23:57 1,000 mg ONETIME ONE Administration Ceftriaxone Sodium 500 mg/ 0 mg 02/22/21 23:56 02/23/21 00:22 Lidocaine HCl 1 ml IM 02/22/21 23:57 1 inj ONETIME ONE Administration Potassium Chloride 20 meq/ 100 mls @ 50 mls/hr 02/22/21 21:50 02/22/21 21:59 Premix IV 02/22/21 23:49 50 mls/hr ONETIME ONE Administration Potassium Chloride 20 meq 02/22/21 23:20 02/23/21 00:22 Potassium Chloride 10 Meq Tab.Er PO 02/22/21 23:21 20 meq ONETIME ONE Administration - Re-Assessments/Exams Free Text/Narrative Re-Assessment/Exam: 02/23/21 00:00 refuses to provide UA. Appears under influence of stimulating substance. Small amount dark blood vaginal vault, CMT negative. Departure - Departure Time of Disposition: 00:02 Disposition: Home, Self-Care 01 Condition: Good Clinical Impression: Chronic anemia, Vaginal bleeding - Discharge Information *PRESCRIPTION DRUG MONITORING PROGRAM REVIEWED*: No *COPY OF PRESCRIPTION DRUG MONITORING REPORT IN PATIENT ELIZABETH: No Instructions: Postmenopausal Bleeding, Abnormal Uterine Bleeding, Sexually Transmitted Disease, [id number], Postmenopausal Bleeding, [id number] Referrals: PCP,None [Primary Care Provider] - Forms: ED Department Discharge Additional Instructions: Follow up if worsening of vaginal bleeding. Clinic follow up on Thursday if continued bleeding tylenol 500mg every 4 hours as needed for discomfort encourage fluids Sepsis Event Note (ED) - Evaluation Sepsis Screening Result: No Definite Risk - Focused Exam Vital Signs: Vital Signs Temp Pulse Resp BP Pulse Ox 02/22/21 20:31 97 F 107 H 18 147/95 H 97
[2021-02-23] MEDS ORDERED: Acetaminophen 325 MG Tab PO ONE (00:06)
== END 2021-02-23 00:32 | disposition home or self-care (01) ==
LOC: DL.ED 20:16
DX: N93.9 Abnormal uterine and vaginal bleeding, unspecified (principal); D64.9 Anemia, unspecified; Z88.5 Allergy status to narcotic agent; Z88.6 Allergy status to analgesic agent; Z72.0 Tobacco use
CPT/HCPCS: 36415; 80053; 83605; 84703; 85025; 96365; 96366; 96372; 99284; A9270; J0696; J3480

== ENCOUNTER 2021-06-09 02:44 | Emergency (ER) | payer MEDICAID ==
[2021-06-09] MEDS ORDERED: Losartan 50 MG Tab PO ONE (02:45)
[2021-06-09] MEDS ORDERED: Metoprolol Tartrate 5 MG/5 ML SDV IVPUSH ONE (03:08)
[2021-06-09 03:18] VITALS: PULSE 111
[2021-06-09] MEDS ORDERED: Nitroglycerin 0.4 MG Tab.SL SL ONE ×2 (03:25→04:11)
[2021-06-09 03:37] LABS: ANION GAP 18.4 mEq/L (7-13); CHLORIDE,CL 101 mmol/L (98-107); SODIUM,NA 139 mmol/L (136-145)
[2021-06-09 03:47] LABS: CORONAVIRUS COVID-19 NAA NEGATIVE (NEGATIVE)
[2021-06-09] MEDS ORDERED: Magnesium Sulfate/Water 2 GM in Premix Bag 1 BAG IV ONE (04:12)
[2021-06-09 04:14] VITALS: BP 148/96
--- NOTE | 2021-06-09 04:29 | CT ---
PROCEDURE INFORMATION: Exam: CT Head Without Contrast Exam date and time: 06/09/2021 3:52 AM Age: 46 years old Clinical indication: Other: Headaches; Additional info: HTN, intermittent headache, tingling legs TECHNIQUE: Imaging protocol: Computed tomography of the head without contrast. Radiation optimization: All CT scans at this facility use at least one of these dose optimization techniques: automated exposure control; mA and/or kV adjustment per patient size (includes targeted exams where dose is matched to clinical indication); or iterative reconstruction. COMPARISON: No relevant prior studies available. FINDINGS: Brain: Normal. No hemorrhage. Unremarkable white matter. No mass effect. Cerebral ventricles: No ventriculomegaly. Paranasal sinuses: Visualized sinuses are unremarkable. No fluid levels. Mastoid air cells: Visualized mastoid air cells are well aerated. Vasculature: Calcific densities are seen at the apices of the basal ganglia bilaterally possibly representing vascular calcifications. Bones/joints: Unremarkable. No acute fracture. Soft tissues: Unremarkable. IMPRESSION: There are no acute intracranial findings.
--- NOTE | 2021-06-09 04:29 | CR ---
PROCEDURE INFORMATION: Exam: XR Chest Exam date and time: 06/09/2021 3:55 AM Age: 46 years old Clinical indication: Other: HTN; Additional info: HTN, intermittent headache, tingling legs TECHNIQUE: Imaging protocol: XR of the chest. Views: 1 view. COMPARISON: No relevant prior studies available. FINDINGS: Lungs: Unremarkable. No consolidation. Pleural spaces: Unremarkable. No pleural effusion. No pneumothorax. Heart/Mediastinum: Unremarkable. No cardiomegaly. Bones/joints: There is a mild S-shaped curvature of the axial skeleton. Status post vertebroplasty L1. IMPRESSION: There are no acute chest findings.
[2021-06-09] MEDS ORDERED: GI Cocktail Oral Solution 30 ML PO ONE (05:14)
[2021-06-09] MEDS ORDERED: hydrALAZINE 20 MG/ML SDV IVPUSH ONE (05:14)
--- NOTE | 2021-06-09 06:02 | EDM.PDOC ---
ED HPI GENERAL MEDICAL PROBLEM - General Chief Complaint: Chest Pain Stated Complaint: AMBULANCE Time Seen by Provider: 06/09/21 03:05 Source of Information: Reports: Patient, EMS, RN History Limitations: Reports: No Limitations - History of Present Illness INITIAL COMMENTS - FREE TEXT/NARRATIVE: ED via [facility] with c/o chest pain and tingling in legs starting tonight. Reports ran out of BP and meds for anxiety. Stated had been 3-4 days since last Lorazepam. (Review of [place] Board of [facility] no Rx for Lorazepam in past year. has been on Gabapentin . EMS gave aspirin and one nitro. Reports midsternal pain. No cough fever or chills. No nausea. No weakness. No headache or blurred vision. - Related Data Allergies Allergy/AdvReac Type Severity Reaction Status Date / Time celecoxib Allergy Other Verified 01/12/21 23:13 hydrocodone Allergy Nausea and Verified 01/12/21 23:13 Vomiting ketorolac Allergy Nausea and Verified 01/12/21 23:13 Vomiting naproxen Allergy Other Verified 01/12/21 23:13 tramadol HCl [From Ultram] Allergy Other Verified 01/12/21 23:13 Home Meds: Home Meds Acetaminophen 2 tab PO Q6H PRN 07/11/15 [History] Ibuprofen 600 mg PO ASDIRECTED 04/06/19 [History] Baclofen 10 mg PO BEDTIME PRN 03/22/20 [History] Calcium Citrate/Vitamin D3 [Calcium Citrate - Vit D Caplet] 1 each PO 03/22/20 [History] Chlorthalidone 25 mg PO DAILY 03/22/20 [History] Cholecalciferol (Vitamin D3) [Vitamin D] 1,000 unit PO DAILY 03/22/20 [History] Ferrous Gluconate 324 mg PO 03/22/20 [History] Gabapentin [Neurontin] 600 mg PO BID 03/22/20 [History] Losartan [Cozaar] 50 mg PO DAILY 03/22/20 [History] Multivitamin 1 each PO DAILY 03/22/20 [History] Past Medical History HEENT History: Reports: None Cardiovascular History: Reports: Hypertension Respiratory History: Reports: None Genitourinary History: Reports: UTI, Recurrent [employer] History: Reports: Musculoskeletal History: Reports: Back Pain, Chronic Neurological History: Reports: Other (See Below) Other Neuro History: CHRONIC PAIN SYNDROME; INSOMNIA Psychiatric History: Reports: Addiction, Anxiety, Depression, Mood Swings, Panic Attack, Suicide Attempt Other Psychiatric History: POST TOBACCO HABITUATION Endocrine/Metabolic History: Reports: Obesity/BMI 30+ Hematologic History: Reports: Anemia Immunologic History: Reports: None Oncologic (Cancer) History: Reports: None Dermatologic History: Reports: Eczema Other Dermatologic History: left leg eczema only. - Infectious Disease History Infectious Disease History: Reports: Chicken Pox Other Infectious Disease History: no chicken pox at this time. prior hx of. - Past Surgical History Head Surgeries/Procedures: Reports: None GI Surgical History: Reports: Cholecystectomy Female Surgical History: Reports: Section Other Female Surgeries/Procedures: CYSTOSCOPY WITH BLADDER BIOPSY Social & Family History - Family History Family Medical History: No Pertinent Family History - Tobacco Use Tobacco Use Status *Q: Never Tobacco User Second Hand Smoke Exposure: Yes - Caffeine Use Caffeine Use: Reports: None - Living Situation & Occupation Living situation: Reports: with Family ED ROS GENERAL - Review of Systems Review Of Systems: Comprehensive ROS is negative, except as noted in HPI. ED EXAM, GENERAL - Physical Exam Exam: See Below Exam Limited By: No Limitations General Appearance: Alert, Anxious Eye Exam: Bilateral Eye: EOMI, PERRL Ears: Normal External Exam, Hearing Grossly Normal Nose: Normal Inspection Throat/Mouth: Normal Inspection Head: Atraumatic, Normocephalic Neck: Normal Inspection Respiratory/Chest: No Respiratory Distress, Lungs Clear, Normal Breath Sounds, Other (anterior chest wall tenderness reporducible with movment and palpation) Cardiovascular: Regular Rate, Rhythm, No JVD, No Murmur, Tachycardia (110"s on presentation), Diastolic Murmur GI/Abdominal: Normal Bowel Sounds, Soft, Non-Tender Back Exam: Normal Inspection, Full Range of Motion Extremities: Normal Inspection, Normal Range of Motion Neurological: Alert, Oriented, Normal Cognition, No Motor/Sensory Deficits. No: Abnormal Reflexes, Sensory/Motor Deficit Psychiatric: Anxious Skin Exam: Warm, Dry, Intact, Normal Color. No: Jaundice #1 Interpretation EKG Date: 06/09/21 Time: 02:49 Rhythm: NSR [place]: Normal P-Wave: Present QRS: Normal ST-T: Normal QT: Normal Comparison: No Change Course - Vital Signs Last Recorded V/S: Last Vital Signs Temp 97.7 F 06/09/21 03:02 Pulse 111 H 06/09/21 03:18 Resp 20 06/09/21 03:02 BP 148/96 H 06/09/21 04:14 Pulse Ox 99 06/09/21 03:02 - Orders/Labs/Meds Orders: Active Orders 24 hr Category Date Time Status DRUG SCREEN URINE BIORAD [URCHEM] Stat Lab 06/09/21 03:15 Ordered UA RFX ROS AND CULT IF INDIC [URIN] Stat Lab 06/09/21 03:15 Ordered Magnesium Sulfate/Water [Magnesium Sulfate in Water 2 Med 06/09/21 04:12 Active GM/50 ML] 2 gm Premix Bag 1 bag IV ONETIME Medication Orders Magnesium Sulfate 2 gm/ Premix 50 mls @ 25 mls/hr IV ONETIME ONE Stop: 06/09/21 06:11 Last Admin: 06/09/21 04:20 Dose: 25 mls/hr Documented by: CHHAYA Labs: Laboratory Tests 06/09/21 06/09/21 06/09/21 Range/Units 03:10 03:10 03:10 WBC 4.0 L (5.0-10.0) 10^3/uL RBC 3.82 L (4.2-5.4) 10^6/uL Hgb 9.3 L (12.0-16.0) g/dL Hct 30.5 L (37.0-47.0) % MCV 79.8 L (80-100) fL MCH 24.3 L (27.0-34.0) pg MCHC 30.5 L (33.0-35.0) g/dL Plt Count 77 L D (150-450) 10^3/uL Neut % (Auto) 62.3 (42.2-75.2) % Lymph % (Auto) 24.3 (20.5-50.1) % [place] % (Auto) 11.6 H (2-8) % Eos % (Auto) 1.3 (1.0-3.0) % Baso % (Auto) 0.5 (0.0-1.0) % D-Dimer, Quantitative < 100 (0-400) ng/mL Sodium 139 (136-145) mmol/L Potassium 3.4 L (3.5-5.1) mmol/L Chloride 101 (98-107) mmol/L Carbon Dioxide 23 (21-32) mmol/L Anion Gap 18.4 H (7-13) mEq/L BUN 10 (7-18) mg/dL Creatinine 0.65 (0.55-1.02) mg/dL Est Cr Clr Drug Dosing 90.41 mL/min Estimated GFR (MDRD) > 60 BUN/Creatinine Ratio 15.4 (No establ ref range) Glucose 109 H (70-99) mg/dL Calcium 7.7 L (8.5-10.1) mg/dL Magnesium 1.3 L (1.8-2.4) mg/dL Total Bilirubin 1.2 H (0.2-1.0) mg/dL AST 157 H (15-37) U/L ALT 37 (14-59) U/L Alkaline Phosphatase 173 H (46-116) U/L Troponin I High Sens 8 (<=51) pg/mL Total Protein 7.6 (6.4-8.2) g/dL Albumin 3.1 L (3.4-5.0) g/dL Globulin 4.5 Albumin/Globulin Ratio 0.69 Amylase 26 (25-115) U/L Lipase 156 (73-393) U/L HCG, Qual Negative Ethyl Alcohol < 3 (0) mg/dL Influenza Type A RNA (NEGATIVE) Influenza Type B RNA (NEGATIVE) SARS-CoV-2 RNA (VIVIANA) (NEGATIVE) 06/09/21 06/09/21 Range/Units 03:21 04:40 WBC (5.0-10.0) 10^3/uL RBC (4.2-5.4) 10^6/uL Hgb (12.0-16.0) g/dL Hct (37.0-47.0) % MCV (80-100) fL MCH (27.0-34.0) pg MCHC (33.0-35.0) g/dL Plt Count (150-450) 10^3/uL Neut % (Auto) (42.2-75.2) % Lymph % (Auto) (20.5-50.1) % [place] % (Auto) (2-8) % Eos % (Auto) (1.0-3.0) % Baso % (Auto) (0.0-1.0) % D-Dimer, Quantitative (0-400) ng/mL Sodium (136-145) mmol/L Potassium (3.5-5.1) mmol/L Chloride (98-107) mmol/L Carbon Dioxide (21-32) mmol/L Anion Gap (7-13) mEq/L BUN (7-18) mg/dL Creatinine (0.55-1.02) mg/dL Est Cr Clr Drug Dosing mL/min Estimated GFR (MDRD) BUN/Creatinine Ratio (No establ ref range) Glucose (70-99) mg/dL Calcium (8.5-10.1) mg/dL Magnesium (1.8-2.4) mg/dL Total Bilirubin (0.2-1.0) mg/dL AST (15-37) U/L ALT (14-59) U/L Alkaline Phosphatase (46-116) U/L Troponin I High Sens 8 (<=51) pg/mL Total Protein (6.4-8.2) g/dL Albumin (3.4-5.0) g/dL Globulin Albumin/Globulin Ratio Amylase (25-115) U/L Lipase (73-393) U/L HCG, Qual Ethyl Alcohol (0) mg/dL Influenza Type A RNA Negative (NEGATIVE) Influenza Type B RNA Negative (NEGATIVE) SARS-CoV-2 RNA (VIVIANA) Negative (NEGATIVE) Meds: Medications Generic Name Dose Route Start Last Admin Trade Name Freq PRN Reason Stop Dose Admin Magnesium Sulfate 2 gm/ Premix 50 mls @ 25 mls/hr 06/09/21 04:12 06/09/21 04:20 IV 06/09/21 06:11 25 mls/hr ONETIME ONE Administration Discontinued Medications Generic Name Dose Route Start Last Admin Trade Name Freq PRN Reason Stop Dose Admin Al Hydroxide/Mg Hydroxide 30 ml 06/09/21 05:14 06/09/21 05:25 Gi Cocktail Oral Solution 30 Ml PO 06/09/21 05:15 30 ml ONETIME ONE Administration Hydralazine HCl 10 mg 06/09/21 05:14 06/09/21 05:25 Hydralazine 20 Mg/Ml Sdv IVPUSH 06/09/21 05:15 10 mg ONETIME ONE Administration Metoprolol Tartrate 5 mg 06/09/21 03:08 06/09/21 03:18 Metoprolol Tartrate 5 Mg/5 Ml Sdv IVPUSH 06/09/21 03:09 5 mg ONETIME ONE Administration Nitroglycerin 0.4 mg 06/09/21 03:25 06/09/21 03:39 Nitroglycerin 0.4 Mg Tab.Sl SL 06/09/21 03:26 0.4 mg ONETIME ONE Administration Nitroglycerin 0.4 mg 06/09/21 04:11 06/09/21 04:14 Nitroglycerin 0.4 Mg Tab.Sl SL 06/09/21 04:12 0.4 mg ONETIME ONE Administration Departure - Departure Time of Disposition: 06:17 Disposition: Home, Self-Care 01 Condition: Good Clinical Impression: Chest wall pain, Chronic anemia Hypertension Qualifiers: Hypertension type: unspecified Qualified Code(s): I10 - Essential (primary) hypertension Instructions: Hypertension, Adult Additional Instructions: Clinic follow up Thursday Resume medications losartan 50mg daily bland diet Sepsis Event Note (ED) - Evaluation Sepsis Screening Result: No Definite Risk - Focused Exam Vital Signs: Vital Signs Temp Pulse Pulse Resp BP BP Pulse Ox 06/09/21 04:14 148/96 H 06/09/21 03:39 145/109 H 06/09/21 03:18 111 H 142/115 H 06/09/21 03:02 97.7 F 116 H 20 160/110 H 99 - My Orders Last 24 Hours: My Active Orders 06/09/21 03:15 DRUG SCREEN URINE BIORAD [URCHEM] Stat UA RFX ROS AND CULT IF INDIC [URIN] Stat 06/09/21 04:12 Magnesium Sulfate/Water [Magnesium Sulfate in Water 2 GM/50 ML] 2 gm Premix Bag 1 bag IV ONETIME - Assessment/Plan Last 24 Hours: My Active Orders 06/09/21 03:15 DRUG SCREEN URINE BIORAD [URCHEM] Stat UA RFX ROS AND CULT IF INDIC [URIN] Stat 06/09/21 04:12 Magnesium Sulfate/Water [Magnesium Sulfate in Water 2 GM/50 ML] 2 gm Premix Bag 1 bag IV ONETIME
[2021-06-09] MEDS ORDERED: Losartan 50 MG Tab ONE (06:09)
[2021-06-09 06:11] LABS: AMPHETAMINES,URINE NEGATIVE (NEGATIVE); BARBITURATES,URINE NEGATIVE (NEGATIVE); BENZODIAZEPINE,URINE NEGATIVE (NEGATIVE); MDMA (ECSTASY), URINE NEGATIVE (NEGATIVE); METHADONE,URINE NEGATIVE (NEGATIVE); METHAMPHETAMINES,URINE NEGATIVE (NEGATIVE); OPIATES,URINE NEGATIVE (NEGATIVE); OXYCODONE,URINE NEGATIVE (NEGATIVE); PHENCYCLIDINE,URINE NEGATIVE (NEGATIVE); TCA,URINE NEGATIVE (NEGATIVE)
== END 2021-06-09 06:20 | disposition home or self-care (01) ==
LOC: DL.ED 02:44
DX: R07.89 Other chest pain (principal); D64.9 Anemia, unspecified; I10 Essential (primary) hypertension; E66.9 Obesity, unspecified; Z20.822 Contact with and (suspected) exposure to COVID-19; Z88.8 Allergy status to other drugs, medicaments and biological substances; Z88.5 Allergy status to narcotic agent; Z88.6 Allergy status to analgesic agent; Z79.899 Other long term (current) drug therapy; Z77.22 Contact with and (suspected) exposure to environmental tobacco smoke (acute) (chronic); Z68.28 Body mass index [BMI] 28.0-28.9, adult
CPT/HCPCS: 0240U; 36415; 70450; 71045; 80053; 80305; 80307; 81001; 82150; 83690; 83735; 84484; 84703; 85025; 85379; 93005; 96365; 96366; 96375; 99285; A9270; J0360; J3475; J3490

== ENCOUNTER 2021-08-18 17:14 | Emergency (ER) | payer MEDICAID ==
[2021-08-18 17:24] VITALS: BP 133/104; PULSE 101
[2021-08-18 17:57] LABS: ANION GAP 13.1 mEq/L (7-13); CHLORIDE,CL 99 mmol/L (98-107); SODIUM,NA 137 mmol/L (136-145)
[2021-08-18] MEDS ORDERED: Magnesium Sulfate/Water 2 GM in Premix Bag 1 BAG IV ONE ×2 (18:05→18:06)
[2021-08-18] MEDS ORDERED: Potassium Chloride 10 MEQ Tab.ER PO ONE (18:05)
[2021-08-18] MEDS ORDERED: Ondansetron 4 MG/2 ML SDV IV ONE (18:06)
[2021-08-18 20:53] LABS: AMPHETAMINES,URINE NEGATIVE (NEGATIVE); BARBITURATES,URINE NEGATIVE (NEGATIVE); BENZODIAZEPINE,URINE NEGATIVE (NEGATIVE); MDMA (ECSTASY), URINE NEGATIVE (NEGATIVE); METHADONE,URINE NEGATIVE (NEGATIVE); METHAMPHETAMINES,URINE NEGATIVE (NEGATIVE); OPIATES,URINE NEGATIVE (NEGATIVE); OXYCODONE,URINE NEGATIVE (NEGATIVE); PHENCYCLIDINE,URINE NEGATIVE (NEGATIVE); TCA,URINE NEGATIVE (NEGATIVE)
== END 2021-08-18 23:30 | disposition home or self-care (01) ==
LOC: DL.ED 17:14
DX: E83.42 Hypomagnesemia (principal); R29.0 Tetany; I10 Essential (primary) hypertension; E66.9 Obesity, unspecified; Z68.30 Body mass index [BMI] 30.0-30.9, adult; Z88.5 Allergy status to narcotic agent; Z88.6 Allergy status to analgesic agent; Z88.8 Allergy status to other drugs, medicaments and biological substances; Z79.899 Other long term (current) drug therapy
CPT/HCPCS: 36415; 71045; 80053; 80305; 80307; 81003; 81025; 82150; 83690; 83735; 84484; 85025; 93005; 96365; 96366; 96375; 99284; A9270; J2405; J3475; 93010

== ENCOUNTER 2022-04-26 13:50 | Emergency (ER) | payer MEDICAID ==
[2022-04-26] MEDS ORDERED: Doxycycline Monohydrate 100 MG Cap PO ONE (13:51)
[2022-04-26] MEDS ORDERED: Doxycycline Monohydrate 100 MG Cap ONE (16:34)
== END 2022-04-26 16:42 | disposition home or self-care (01) ==
LOC: MERGE 13:50 → DL.ED 13:50
DX: S80.12XA Contusion of left lower leg, initial encounter (principal); L03.116 Cellulitis of left lower limb; I10 Essential (primary) hypertension; E66.9 Obesity, unspecified; Z68.26 Body mass index [BMI] 26.0-26.9, adult; Z88.1 Allergy status to other antibiotic agents; Z88.5 Allergy status to narcotic agent; Z88.6 Allergy status to analgesic agent; Z88.8 Allergy status to other drugs, medicaments and biological substances; Z90.49 Acquired absence of other specified parts of digestive tract; Z79.899 Other long term (current) drug therapy; W22.8XXA Striking against or struck by other objects, initial encounter
CPT/HCPCS: 99283; A9270

== ENCOUNTER 2022-06-12 18:35 | Emergency (ER) | payer MEDICAID ==
[2022-06-12] MEDS ORDERED: Iopamidol 612 MG/ML 100 ML Bottle IVPUSH ONE (19:01)
[2022-06-12] MEDS ORDERED: Ondansetron 4 MG/2 ML SDV IVPUSH ONE (19:01)
[2022-06-12] MEDS ORDERED: MVI, Adult with Vitamin K 10 ML, Folic Acid 1 MG, Thiamine 100 MG in Lactated Ringers 1... IV ONE ×4 (19:01)
[2022-06-12] MEDS ORDERED: Sodium Chloride 0.9% 10 ML Syringe FLUSH PRN (19:01)
[2022-06-12 19:39] LABS: ANION GAP 4.8 mEq/L (7-13)
[2022-06-12 19:45] LABS: PTT,PARTIAL THROMBOPLSTIN TIME 31.6 SEC (22.0-34.0)
[2022-06-12 19:59] LABS: AMPHETAMINES,URINE NEGATIVE (NEGATIVE); BARBITURATES,URINE NEGATIVE (NEGATIVE); BENZODIAZEPINE,URINE NEGATIVE (NEGATIVE); MDMA (ECSTASY), URINE NEGATIVE (NEGATIVE); METHADONE,URINE NEGATIVE (NEGATIVE); METHAMPHETAMINES,URINE POSITIVE (NEGATIVE); OPIATES,URINE NEGATIVE (NEGATIVE); OXYCODONE,URINE NEGATIVE (NEGATIVE); PHENCYCLIDINE,URINE NEGATIVE (NEGATIVE); TCA,URINE NEGATIVE (NEGATIVE)
== END 2022-06-12 20:59 | disposition home or self-care (01) ==
LOC: DL.ED 18:35
DX: K70.9 Alcoholic liver disease, unspecified (principal); N95.0 Postmenopausal bleeding; F10.239 Alcohol dependence with withdrawal, unspecified; I10 Essential (primary) hypertension; E66.9 Obesity, unspecified; Z88.5 Allergy status to narcotic agent; Z88.8 Allergy status to other drugs, medicaments and biological substances; Z68.23 Body mass index [BMI] 23.0-23.9, adult; Z79.899 Other long term (current) drug therapy; Y90.6 Blood alcohol level of 120-199 mg/100 ml
CPT/HCPCS: 36415; 74177; 80053; 80305; 80307; 81001; 81025; 83605; 83690; 85025; 85610; 85730; 87086; 96365; 96375; 99285; J2405; J3411; J3490; J7120; Q9967

== ENCOUNTER 2022-12-29 02:33 | Emergency (ER) | payer MEDICAID ==
[2022-12-29] MEDS ORDERED: Acetaminophen 500 MG Tab PO ONE (03:23)
== END 2022-12-29 03:35 | disposition home or self-care (01) ==
LOC: DL.ED 02:33
DX: R04.0 Epistaxis (principal); G89.29 Other chronic pain; R10.9 Unspecified abdominal pain; I10 Essential (primary) hypertension; E66.9 Obesity, unspecified; Z68.25 Body mass index [BMI] 25.0-25.9, adult; Z79.899 Other long term (current) drug therapy; Z98.890 Other specified postprocedural states; Z90.49 Acquired absence of other specified parts of digestive tract; Z88.1 Allergy status to other antibiotic agents; Z88.5 Allergy status to narcotic agent; Z88.8 Allergy status to other drugs, medicaments and biological substances
CPT/HCPCS: 99283; A9270

== ENCOUNTER 2023-01-22 19:37 | Emergency (ER) | payer MEDICAID ==
[2023-01-22] MEDS ORDERED: Bacitracin Oint 1 GM U/D Packet TOP ONE (21:10)
[2023-01-22] MEDS ORDERED: Lidocaine 2% with EPINEPHrine 1:200,000 20 ML SDV INJECT ONE (21:10)
[2023-01-22 21:24] LABS: HEMATOCRIT 31.6 % (37.0-47.0); HEMOGLOBIN 10.5 g/dL (12.0-16.0); MEAN CORPUSCULAR HEMOGLOBIN 32.8 pg (27.0-34.0); MEAN CORPUSCULAR HGB CONC 33.2 g/dL (33.0-35.0); MEAN CORPUSCULAR VOLUME 98.8 fL (80-100); PLATELET COUNT,PLT 70 10^3/uL (150-450); WHITE BLOOD CELL COUNT,WBC 4.3 10^3/uL (5.0-10.0)
[2023-01-22 21:34] LABS: BASOPHILS PERCENT AUTO 0.9 % (0.0-1.0); EOSINOPHILS PERCENT AUTO 2.3 % (1.0-3.0); LYMPHOCYTES PERCENT AUTO 59.5 % (20.5-50.1); MONOCYTES PERCENT AUTO 13.6 % (2-8); NEUTROPHILS PERCENT AUTO 23.7 % (42.2-75.2)
[2023-01-22] MEDS ORDERED: Acetaminophen 500 MG Tab PO ONE (21:36)
[2023-01-22 21:42] LABS: A/G RATIO 0.46; ALANINE AMINOTRANSFERASE,ALT 19 U/L (14-59); ALBUMIN 2.5 g/dL (3.4-5.0); ALKALINE PHOSPHATASE 319 U/L (46-116); ANION GAP 13.3 mEq/L (7-13); ASPARTATE AMNIOTRANSFERASE,AST 50 U/L (15-37); BILIRUBIN TOTAL 1.5 mg/dL (0.2-1.0); BLOOD UREA NITROGEN,BUN 10 mg/dL (7-18); BUN/CREATININE RATIO 17.9 (No establ ref range); C-REACTIVE PROTEIN < 0.2 mg/dL (0.0-0.9); CALCIUM 7.4 mg/dL (8.5-10.1); CARBON DIOXIDE,CO2 25 mmol/L (21-32); CHLORIDE,CL 110 mmol/L (98-107); CREATININE 0.56 mg/dL (0.55-1.02); ESTIMATED GFR 114 mL/min (>=60); ETHANOL BLOOD MEDICAL 341 mg/dL (0); GLUCOSE RANDOM 102 mg/dL (70-99); MAGNESIUM 1.7 mg/dL (1.8-2.4); POTASSIUM,K 3.3 mmol/L (3.5-5.1); PROTEIN TOTAL,TP 7.9 g/dL (6.4-8.2); SODIUM,NA 145 mmol/L (136-145)
[2023-01-22 21:46] LABS: INR 1.4 (0.9-1.2); PROTHROMBIN TIME 13.8 SEC (9.0-12.0); PTT,PARTIAL THROMBOPLSTIN TIME 28.8 SEC (22.0-34.0)
[2023-01-22 21:48] LABS: EOSINOPHILS PERCENT MAN 1 % (1-3); LYMPHOCYTES PERCENT MAN 66 % (20-50); MONOCYTES PERCENT MAN 8 % (2-8); SEG NEUTROPHILS PERCENT MAN 25 % (42-75)
[2023-01-22] MEDS ORDERED: Magnesium Sulfate/Water 2 GM in Premix Bag 1 BAG IV ONE (22:09)
[2023-01-22] MEDS ORDERED: Lactated Ringers 1,000 ML IV ONE (22:09)
== END 2023-01-22 23:27 | disposition home or self-care (01) ==
LOC: DL.ED 19:37
DX: S01.21XA Laceration without foreign body of nose, initial encounter (principal); S01.81XA Laceration without foreign body of other part of head, initial encounter; F10.920 Alcohol use, unspecified with intoxication, uncomplicated; I10 Essential (primary) hypertension; D64.9 Anemia, unspecified; E66.9 Obesity, unspecified; E87.6 Hypokalemia; E83.42 Hypomagnesemia; Z88.8 Allergy status to other drugs, medicaments and biological substances; Z88.6 Allergy status to analgesic agent; Z79.899 Other long term (current) drug therapy; Y90.8 Blood alcohol level of 240 mg/100 ml or more; W10.8XXA Fall (on) (from) other stairs and steps, initial encounter
CPT/HCPCS: 12013; 36415; 70450; 70486; 72125; 80053; 80307; 83735; 85025; 85610; 85730; 86140; 96365; 99284; A9270; J3475; J7120; J3490

== ENCOUNTER 2023-03-08 12:14 | Emergency (ER) | payer MEDICAID ==
[2023-03-08 13:38] LABS: BASOPHILS PERCENT AUTO 0.2 % (0.0-1.0); EOSINOPHILS PERCENT AUTO 0.1 % (1.0-3.0); HEMATOCRIT 26.3 % (37.0-47.0); HEMOGLOBIN 8.6 g/dL (12.0-16.0); LYMPHOCYTES PERCENT AUTO 6.5 % (20.5-50.1); MEAN CORPUSCULAR HEMOGLOBIN 34.3 pg (27.0-34.0); MEAN CORPUSCULAR HGB CONC 32.7 g/dL (33.0-35.0); MEAN CORPUSCULAR VOLUME 104.8 fL (80-100); MONOCYTES PERCENT AUTO 11.9 % (2-8); NEUTROPHILS PERCENT AUTO 81.3 % (42.2-75.2); PLATELET COUNT,PLT 97 10^3/uL (150-450); RED BLOOD CELL COUNT 2.51 10^6/uL (4.2-5.4); WHITE BLOOD CELL COUNT,WBC 8.4 10^3/uL (5.0-10.0)
[2023-03-08 13:55] LABS: APPEARANCE,URINE CLEAR (CLEAR); BILIRUBIN,URINE NEGATIVE (NEGATIVE); COLOR,URINE YELLOW (YELLOW); GLUCOSE,URINE NEGATIVE (NEGATIVE); KETONES,URINE TRACE (NEGATIVE); LEUKOCYTE ESTERASE,URINE NEGATIVE (NEGATIVE); NITRITE,URINE NEGATIVE (NEGATIVE); OCCULT BLOOD,URINE TRACE-INTACT (NEGATIVE); PH,URINE 6.5 (5.0-9.0); PROTEIN,URINE 30 (NEGATIVE)
[2023-03-08 13:59] LABS: AMPHETAMINES,URINE NEGATIVE (NEGATIVE); BARBITURATES,URINE NEGATIVE (NEGATIVE); BENZODIAZEPINE,URINE NEGATIVE (NEGATIVE); MDMA (ECSTASY), URINE NEGATIVE (NEGATIVE); METHADONE,URINE NEGATIVE (NEGATIVE); METHAMPHETAMINES,URINE NEGATIVE (NEGATIVE); OPIATES,URINE NEGATIVE (NEGATIVE); OXYCODONE,URINE NEGATIVE (NEGATIVE); PHENCYCLIDINE,URINE NEGATIVE (NEGATIVE); TCA,URINE NEGATIVE (NEGATIVE)
[2023-03-08 14:00] LABS: ALANINE AMINOTRANSFERASE,ALT 26 U/L (14-59); ALBUMIN 1.9 g/dL (3.4-5.0); ALKALINE PHOSPHATASE 170 U/L (46-116); ANION GAP 18.4 mEq/L (7-13); ASPARTATE AMNIOTRANSFERASE,AST 48 U/L (15-37); BILIRUBIN TOTAL 2.7 mg/dL (0.2-1.0); BLOOD UREA NITROGEN,BUN 13 mg/dL (7-18); BUN/CREATININE RATIO 17.8 (No establ ref range); C-REACTIVE PROTEIN 2.44 ng/dL (<=0.30); CALCIUM 7.6 mg/dL (8.5-10.1); CARBON DIOXIDE,CO2 19 mmol/L (21-32); CHLORIDE,CL 107 mmol/L (98-107); CREATININE 0.73 mg/dL (0.55-1.02); EST CRCL DRUG DOSING (CG) 83.15 mL/min; GLUCOSE RANDOM 126 mg/dL (70-99); LIPASE 41 U/L (16-77); MAGNESIUM 1.7 mg/dL (1.8-2.4); POTASSIUM,K 3.4 mmol/L (3.5-5.1); PROTEIN TOTAL,TP 7.2 g/dL (6.4-8.2); SODIUM,NA 141 mmol/L (136-145)
[2023-03-08 14:04] LABS: A/G RATIO 0.36; ESTIMATED GFR 103 mL/min (>=60); ETHANOL BLOOD MEDICAL < 3 mg/dL (0)
[2023-03-08 14:08] LABS: LACTIC ACID 7.2 mmol/L (0.4-2.0)
[2023-03-08 14:11] LABS: AMORPHOUS SEDIMENT,URINE FEW /HPF (NOT SEEN); BACTERIA,URINE MANY /HPF (0-FEW/HPF); EPITHELIAL CELLS,URINE MODERATE /HPF (NOT SEEN); MUCUS,URINE FEW /LPF (NOT SEEN)
[2023-03-08 14:12] LABS: INR 1.4 (0.9-1.2); PROTHROMBIN TIME 13.7 SEC (9.0-12.0); PTT,PARTIAL THROMBOPLSTIN TIME 26.7 SEC (22.0-34.0)
[2023-03-08] MEDS ORDERED: Pantoprazole 40 MG Vial IVPUSH ONE (14:16)
[2023-03-08] MEDS: Octreotide 100 MCG in Sodium Chloride 0.9% 99 ML IV SCH ×2 (14:29→16:28)
[2023-03-08] MEDS ORDERED: Sodium Chloride 0.9% 1,000 ML IV ONE (15:09)
== END 2023-03-08 16:43 ==
LOC: DL.ED 12:14
DX: K70.31 Alcoholic cirrhosis of liver with ascites (principal); I85.10 Secondary esophageal varices without bleeding; E83.42 Hypomagnesemia; K92.2 Gastrointestinal hemorrhage, unspecified; I10 Essential (primary) hypertension; E66.9 Obesity, unspecified; Z68.25 Body mass index [BMI] 25.0-25.9, adult; Z88.1 Allergy status to other antibiotic agents; Z88.6 Allergy status to analgesic agent; Z88.5 Allergy status to narcotic agent; Z79.899 Other long term (current) drug therapy
CPT/HCPCS: 36415; 80053; 80305-QW; 80307; 81001; 82140; 82272; 83605; 83690; 83735; 85025; 85610; 85730; 86140; 86850; 86900; 86901; 96365; 96366; 96375; 99285; 99285-25; C9113; J2354-JA; J3490; J7030

== ENCOUNTER 2023-04-02 05:31 | Inpatient (IN) | payer MEDICAID ==
[2023-04-02 05:52] LABS: BASOPHILS PERCENT AUTO 0.6 % (0.0-1.0); EOSINOPHILS PERCENT AUTO 1.7 % (1.0-3.0); HEMATOCRIT 28.1 % (37.0-47.0); HEMOGLOBIN 9.9 g/dL (12.0-16.0); LYMPHOCYTES PERCENT AUTO 33.5 % (20.5-50.1); MEAN CORPUSCULAR HEMOGLOBIN 36.3 pg (27.0-34.0); MEAN CORPUSCULAR HGB CONC 35.2 g/dL (33.0-35.0); MEAN CORPUSCULAR VOLUME 102.9 fL (80-100); MONOCYTES PERCENT AUTO 11.4 % (2-8); NEUTROPHILS PERCENT AUTO 52.8 % (42.2-75.2); PLATELET COUNT,PLT 110 10^3/uL (150-450); RED BLOOD CELL COUNT 2.73 10^6/uL (4.2-5.4); WHITE BLOOD CELL COUNT,WBC 5.3 10^3/uL (5.0-10.0)
[2023-04-02 06:08] LABS: INR 1.6 (0.9-1.2); PROTHROMBIN TIME 16.3 SEC (9.0-12.0); PTT,PARTIAL THROMBOPLSTIN TIME 30.8 SEC (22.0-34.0)
[2023-04-02 06:12] LABS: B-TYPE NATRIURETIC PEPTIDE,BNP 36 pg/ml (0-100)
[2023-04-02 06:15] LABS: LACTIC ACID 1.4 mmol/L (0.4-2.0)
[2023-04-02] MEDS ORDERED: Lactated Ringers 1,000 ML IV ONE (06:19)
[2023-04-02 06:22] LABS: ALANINE AMINOTRANSFERASE,ALT 28 U/L (14-59); ALBUMIN 1.7 g/dL (3.4-5.0); ALKALINE PHOSPHATASE 111 U/L (46-116); ANION GAP 14.3 mEq/L (7-13); ASPARTATE AMNIOTRANSFERASE,AST 58 U/L (15-37); BILIRUBIN TOTAL 4.3 mg/dL (0.2-1.0); BLOOD UREA NITROGEN,BUN 15 mg/dL (7-18); BUN/CREATININE RATIO 23.4 (No establ ref range); CALCIUM 8.2 mg/dL (8.5-10.1); CARBON DIOXIDE,CO2 22 mmol/L (21-32); CHLORIDE,CL 108 mmol/L (98-107); CREATININE 0.64 mg/dL (0.55-1.02); EST CRCL DRUG DOSING (CG) 94.85 mL/min; GLUCOSE RANDOM 201 mg/dL (70-99); LIPASE 12 U/L (16-77); MAGNESIUM 1.2 mg/dL (1.8-2.4); POTASSIUM,K 3.3 mmol/L (3.5-5.1); PROTEIN TOTAL,TP 6.9 g/dL (6.4-8.2); SODIUM,NA 141 mmol/L (136-145)
[2023-04-02 06:24] LABS: A/G RATIO 0.33; ESTIMATED GFR 110 mL/min (>=60); ETHANOL BLOOD MEDICAL < 3 mg/dL (0)
[2023-04-02] MEDS ORDERED: Magnesium Sulfate/Water 2 GM in Premix Bag 1 BAG IV ONE ×2 (06:30→09:14)
[2023-04-02 06:40] LABS: CORONAVIRUS COVID-19 NAA NEGATIVE (NEGATIVE); INFLUENZA A NAA NEGATIVE (NEGATIVE); INFLUENZA B NAA NEGATIVE (NEGATIVE)
[2023-04-02] MEDS ORDERED: Thiamine 100 MG in Sodium Chloride 0.9% 50 ML IV ONE (09:04)
[2023-04-02] MEDS ORDERED: LORazepam 0.5 MG Tab PO PRN (09:04)
[2023-04-02] MEDS ORDERED: cloNIDine 0.1 MG Tab PO PRN (09:04)
[2023-04-02] MEDS ORDERED: MVI, Adult with Vitamin K 10 ML, Folic Acid 1 MG, Thiamine 100 MG in Lactated Ringers 1... IV ONE ×4 (09:04)
[2023-04-02] MEDS ORDERED: Haloperidol Lactate 5 MG/ML SDV IM ONE (09:07)
[2023-04-02] MEDS ORDERED: Sennosides/Docusate Sodium 50-8.6 MG Tab PO PRN (09:08)
[2023-04-02] MEDS ORDERED: Magnesium Hydroxide 400 MG/5 ML Susp 30 ML Cup PO PRN (09:08)
[2023-04-02] MEDS ORDERED: Ondansetron 4 MG/2 ML SDV IVPUSH PRN (09:08)
[2023-04-02] MEDS ORDERED: Polyethylene Glycol 3350 Powder 17 GM Packet PO PRN (09:08)
[2023-04-02] MEDS ORDERED: Albuterol/Ipratropium 3.0-0.5 MG/3 ML Neb Soln NEB PRN (09:08)
[2023-04-02] MEDS ORDERED: HYDROmorphone 0.5 MG/0.5 ML Syringe IVPUSH PRN (09:08)
[2023-04-02] MEDS ORDERED: Naloxone 2 MG/2 ML Syringe IVPUSH PRN (09:08)
[2023-04-02] MEDS ORDERED: Potassium Chloride 20 MEQ in Premix Bag 1 BAG IV ONE (09:14)
[2023-04-02 09:36] LABS: HEMOGLOBIN A1C 4.3 % (<5.7)
[2023-04-02 09:55] LABS: APPEARANCE,URINE CLEAR (CLEAR); BILIRUBIN,URINE NEGATIVE (NEGATIVE); COLOR,URINE YELLOW (YELLOW); GLUCOSE,URINE NEGATIVE (NEGATIVE); KETONES,URINE TRACE (NEGATIVE); LEUKOCYTE ESTERASE,URINE TRACE (NEGATIVE); NITRITE,URINE NEGATIVE (NEGATIVE); OCCULT BLOOD,URINE NEGATIVE (NEGATIVE); PH,URINE 7.5 (5.0-9.0); PROTEIN,URINE NEGATIVE (NEGATIVE); UROBILINOGEN,URINE >=8.0 mg/dL (0.2-1.0)
[2023-04-02 09:58] LABS: T4 FREE 1.88 ng/dL (0.76-1.46); TSH ULTRASENSITIVE 2.66 uIU/mL (0.36-3.74)
[2023-04-02 10:00] LABS: AMPHETAMINES,URINE NEGATIVE (NEGATIVE); BARBITURATES,URINE POSITIVE (NEGATIVE); BENZODIAZEPINE,URINE POSITIVE (NEGATIVE); MDMA (ECSTASY), URINE NEGATIVE (NEGATIVE); METHADONE,URINE NEGATIVE (NEGATIVE); METHAMPHETAMINES,URINE POSITIVE (NEGATIVE); OPIATES,URINE NEGATIVE (NEGATIVE); OXYCODONE,URINE NEGATIVE (NEGATIVE); PHENCYCLIDINE,URINE NEGATIVE (NEGATIVE); TCA,URINE NEGATIVE (NEGATIVE)
[2023-04-02 10:03] LABS: BACTERIA,URINE MODERATE /HPF (0-FEW/HPF); EPITHELIAL CELLS,URINE FEW /HPF (NOT SEEN); RBC,URINE 0-5 /HPF (0-5)
[2023-04-02] MEDS ORDERED: Aspirin 300 MG Supp RECTAL ONE (11:00)
[2023-04-02] MEDS ORDERED: Phytonadione 10 MG in Sodium Chloride 0.9% 50 ML IV ONE (11:01)
[2023-04-02] MEDS: LORazepam 2 MG/ML SDV IV PRN ×3 (12:05→17:39)
[2023-04-02] MEDS: Pantoprazole 40 MG Vial IVPUSH SCH (12:20)
[2023-04-02] MEDS: Dextrose 5%-0.9% NaCl 1,000 ML IV SCH (14:34)
[2023-04-03] MEDS: Dextrose 5%-0.9% NaCl 1,000 ML IV SCH ×2 (00:22→21:20)
[2023-04-03] MEDS: LORazepam 2 MG/ML SDV IV PRN ×3 (00:23→10:56)
[2023-04-03] MEDS: Pantoprazole 40 MG Vial IVPUSH SCH (05:05)
[2023-04-03 06:33] LABS: BASOPHILS PERCENT AUTO 0.6 % (0.0-1.0); EOSINOPHILS PERCENT AUTO 4.8 % (1.0-3.0); HEMATOCRIT 27.3 % (37.0-47.0); HEMOGLOBIN 8.9 g/dL (12.0-16.0); LYMPHOCYTES PERCENT AUTO 36.4 % (20.5-50.1); MEAN CORPUSCULAR HEMOGLOBIN 34.1 pg (27.0-34.0); MEAN CORPUSCULAR HGB CONC 32.6 g/dL (33.0-35.0); MEAN CORPUSCULAR VOLUME 104.6 fL (80-100); MONOCYTES PERCENT AUTO 17.1 % (2-8); NEUTROPHILS PERCENT AUTO 41.1 % (42.2-75.2); PLATELET COUNT,PLT 98 10^3/uL (150-450); RED BLOOD CELL COUNT 2.61 10^6/uL (4.2-5.4); WHITE BLOOD CELL COUNT,WBC 3.6 10^3/uL (5.0-10.0)
[2023-04-03 06:42] LABS: HEMOGLOBIN A1C 4.2 % (<5.7)
[2023-04-03 06:48] LABS: ALBUMIN 1.5 g/dL (3.4-5.0); ANION GAP 12.4 mEq/L (7-13); BILIRUBIN TOTAL 3.3 mg/dL (0.2-1.0); BUN/CREATININE RATIO 10.2 (No establ ref range); CALCIUM 7.4 mg/dL (8.5-10.1); CREATININE 0.59 mg/dL (0.55-1.02); EST CRCL DRUG DOSING (CG) 107.21 mL/min; MAGNESIUM 1.3 mg/dL (1.8-2.4); POTASSIUM,K 3.4 mmol/L (3.5-5.1); PROTEIN TOTAL,TP 6.3 g/dL (6.4-8.2)
[2023-04-03 06:56] LABS: A/G RATIO 0.31
[2023-04-03] MEDS ORDERED: Potassium Chloride 20 MEQ in Premix Bag 1 BAG IV ONE (07:47)
[2023-04-03] MEDS ORDERED: Magnesium Sulfate/Water 2 GM in Premix Bag 1 BAG IV ONE ×3 (07:47→18:00)
[2023-04-03] MEDS: Aspirin 81 MG Tab.Chew PO SCH (08:57)
[2023-04-03] MEDS: Thiamine 100 MG Tab PO SCH (09:01)
[2023-04-03] MEDS: Multivitamin Tab PO SCH (09:01)
[2023-04-03] MEDS: Folic Acid 1 MG Tab PO SCH (09:01)
[2023-04-03] MEDS: Phytonadione 5 MG in Sodium Chloride 0.9% 50 ML IV SCH (11:02)
[2023-04-03] MEDS ORDERED: Haloperidol Lactate 5 MG/ML SDV IM PRN ×2 (16:25→16:27)
[2023-04-04] MEDS: Pantoprazole 40 MG Vial IVPUSH SCH (05:09)
[2023-04-04 05:47] LABS: BASOPHILS PERCENT AUTO 0.7 % (0.0-1.0); EOSINOPHILS PERCENT AUTO 4.1 % (1.0-3.0); HEMATOCRIT 28.5 % (37.0-47.0); HEMOGLOBIN 9.9 g/dL (12.0-16.0); LYMPHOCYTES PERCENT AUTO 30.8 % (20.5-50.1); MEAN CORPUSCULAR HGB CONC 34.7 g/dL (33.0-35.0); MEAN CORPUSCULAR VOLUME 103.6 fL (80-100); NEUTROPHILS PERCENT AUTO 44.4 % (42.2-75.2); PLATELET COUNT,PLT 107 10^3/uL (150-450); RED BLOOD CELL COUNT 2.75 10^6/uL (4.2-5.4); WHITE BLOOD CELL COUNT,WBC 4.2 10^3/uL (5.0-10.0)
[2023-04-04 06:10] LABS: ALBUMIN 1.7 g/dL (3.4-5.0); ANION GAP 12.2 mEq/L (7-13); BILIRUBIN TOTAL 3.2 mg/dL (0.2-1.0); BUN/CREATININE RATIO 6.9 (No establ ref range); CALCIUM 7.9 mg/dL (8.5-10.1); CREATININE 0.58 mg/dL (0.55-1.02); EST CRCL DRUG DOSING (CG) 109.06 mL/min; MAGNESIUM 1.7 mg/dL (1.8-2.4); POTASSIUM,K 3.2 mmol/L (3.5-5.1); PROTEIN TOTAL,TP 6.9 g/dL (6.4-8.2)
[2023-04-04 06:25] LABS: A/G RATIO 0.33
[2023-04-04] MEDS ORDERED: Magnesium Sulfate/Water 4 GM in Premix Bag 1 BAG IV ONE (07:20)
[2023-04-04] MEDS ORDERED: Potassium Chloride 20 MEQ in Premix Bag 1 BAG IV ONE ×2 (07:20→19:00)
[2023-04-04] MEDS: Phytonadione 5 MG in Sodium Chloride 0.9% 50 ML IV SCH (09:24)
[2023-04-04] MEDS: Dextrose 5%-0.9% NaCl 1,000 ML IV SCH (09:40)
[2023-04-04] MEDS: Aspirin 81 MG Tab.Chew PO SCH (10:03)
[2023-04-04] MEDS: Folic Acid 1 MG Tab PO SCH (10:03)
[2023-04-04] MEDS: Multivitamin Tab PO SCH (10:03)
[2023-04-04] MEDS: Cholecalciferol (Vitamin D3) 25 MCG Tab PO SCH (10:04)
[2023-04-04] MEDS: Thiamine 100 MG Tab PO SCH (10:04)
[2023-04-05] MEDS: Dextrose 5%-0.9% NaCl 1,000 ML IV SCH ×2 (02:37→13:55)
[2023-04-05] MEDS: Pantoprazole 40 MG Vial IVPUSH SCH (05:37)
[2023-04-05 06:39] LABS: BASOPHILS PERCENT AUTO 0.5 % (0.0-1.0); HEMATOCRIT 29.7 % (37.0-47.0); HEMOGLOBIN 9.9 g/dL (12.0-16.0); LYMPHOCYTES PERCENT AUTO 38.3 % (20.5-50.1); MEAN CORPUSCULAR HEMOGLOBIN 34.6 pg (27.0-34.0); MEAN CORPUSCULAR HGB CONC 33.3 g/dL (33.0-35.0); MEAN CORPUSCULAR VOLUME 103.8 fL (80-100); MONOCYTES PERCENT AUTO 18.1 % (2-8); NEUTROPHILS PERCENT AUTO 38.1 % (42.2-75.2); PLATELET COUNT,PLT 115 10^3/uL (150-450); RED BLOOD CELL COUNT 2.86 10^6/uL (4.2-5.4); WHITE BLOOD CELL COUNT,WBC 4.4 10^3/uL (5.0-10.0)
[2023-04-05 07:01] LABS: ALBUMIN 1.6 g/dL (3.4-5.0); ANION GAP 13.1 mEq/L (7-13); BILIRUBIN TOTAL 2.9 mg/dL (0.2-1.0); BUN/CREATININE RATIO 3.7 (No establ ref range); CALCIUM 7.8 mg/dL (8.5-10.1); CREATININE 0.54 mg/dL (0.55-1.02); EST CRCL DRUG DOSING (CG) 117.14 mL/min; MAGNESIUM 1.4 mg/dL (1.8-2.4); POTASSIUM,K 3.1 mmol/L (3.5-5.1); PROTEIN TOTAL,TP 6.8 g/dL (6.4-8.2)
[2023-04-05 07:02] LABS: A/G RATIO 0.31
[2023-04-05] MEDS ORDERED: Potassium Chloride 20 MEQ in Premix Bag 1 BAG IV ONE ×2 (08:58→12:00)
[2023-04-05] MEDS ORDERED: Magnesium Sulfate/Water 4 GM in Premix Bag 1 BAG IV ONE (09:08)
[2023-04-05] MEDS ORDERED: Magnesium Sulfate/Water 2 GM in Premix Bag 1 BAG IV ONE ×3 (09:42→18:00)
[2023-04-05] MEDS: Folic Acid 1 MG Tab PO SCH (09:48)
[2023-04-05] MEDS: Aspirin 81 MG Tab.Chew PO SCH (09:48)
[2023-04-05] MEDS: Thiamine 100 MG Tab PO SCH (09:49)
[2023-04-05] MEDS: Cholecalciferol (Vitamin D3) 25 MCG Tab PO SCH (09:49)
[2023-04-05] MEDS: Multivitamin Tab PO SCH (09:49)
[2023-04-05] MEDS: Phytonadione 5 MG in Sodium Chloride 0.9% 50 ML IV SCH (11:15)
[2023-04-05] MEDS ORDERED: Dextrose 5% in Water 1,000 ML IV SCH (13:15)
[2023-04-05] MEDS ORDERED: Lactulose Soln 10 GM/15 ML 30 ML UD Cup PO ONE (14:01)
[2023-04-06] MEDS: Dextrose 5%-0.9% NaCl 1,000 ML IV SCH ×2 (03:32→16:25)
[2023-04-06] MEDS: Pantoprazole 40 MG Vial IVPUSH SCH (05:41)
[2023-04-06 06:36] LABS: BASOPHILS PERCENT AUTO 0.5 % (0.0-1.0); HEMATOCRIT 30.7 % (37.0-47.0); HEMOGLOBIN 10.2 g/dL (12.0-16.0); LYMPHOCYTES PERCENT AUTO 32.1 % (20.5-50.1); MEAN CORPUSCULAR HEMOGLOBIN 34.6 pg (27.0-34.0); MEAN CORPUSCULAR HGB CONC 33.2 g/dL (33.0-35.0); MEAN CORPUSCULAR VOLUME 104.1 fL (80-100); MONOCYTES PERCENT AUTO 16.5 % (2-8); NEUTROPHILS PERCENT AUTO 45.9 % (42.2-75.2); PLATELET COUNT,PLT 116 10^3/uL (150-450); RED BLOOD CELL COUNT 2.95 10^6/uL (4.2-5.4); WHITE BLOOD CELL COUNT,WBC 4.4 10^3/uL (5.0-10.0)
[2023-04-06 06:49] LABS: ALBUMIN 1.7 g/dL (3.4-5.0); BUN/CREATININE RATIO 3.2 (No establ ref range); CALCIUM 7.9 mg/dL (8.5-10.1); CREATININE 0.63 mg/dL (0.55-1.02); EST CRCL DRUG DOSING (CG) 100.4 mL/min; MAGNESIUM 1.5 mg/dL (1.8-2.4); PROTEIN TOTAL,TP 7.1 g/dL (6.4-8.2)
[2023-04-06 06:54] LABS: A/G RATIO 0.31
[2023-04-06] MEDS: Multivitamin Tab PO SCH (09:02)
[2023-04-06] MEDS: Thiamine 100 MG Tab PO SCH (09:02)
[2023-04-06] MEDS: Cholecalciferol (Vitamin D3) 25 MCG Tab PO SCH (09:02)
[2023-04-06] MEDS: Aspirin 81 MG Tab.Chew PO SCH (09:02)
[2023-04-06] MEDS: Phytonadione 5 MG in Sodium Chloride 0.9% 50 ML IV SCH (09:03)
[2023-04-06] MEDS ORDERED: Lactulose Soln 10 GM/15 ML 30 ML UD Cup PO ONE ×2 (09:45→16:12)
[2023-04-06] MEDS ORDERED: Magnesium Sulfate/Water 2 GM in Premix Bag 1 BAG IV ONE ×5 (09:46→23:00)
[2023-04-06] MEDS ORDERED: Potassium Chloride 20 MEQ in Premix Bag 1 BAG IV ONE ×3 (09:47→17:00)
[2023-04-06] MEDS ORDERED: Melatonin 3 MG Tab PO PRN (17:46)
[2023-04-07] MEDS: Pantoprazole 40 MG Vial IVPUSH SCH (05:28)
[2023-04-07] MEDS: Dextrose 5%-0.9% NaCl 1,000 ML IV SCH ×2 (05:28→18:05)
[2023-04-07] MEDS: Thiamine 100 MG Tab PO SCH (09:05)
[2023-04-07] MEDS: Multivitamin Tab PO SCH (09:05)
[2023-04-07] MEDS: Acetaminophen 325 MG Tab PO PRN (09:05)
[2023-04-07] MEDS: Aspirin 81 MG Tab.Chew PO SCH (09:05)
[2023-04-07] MEDS: Cholecalciferol (Vitamin D3) 25 MCG Tab PO SCH (09:05)
[2023-04-07] MEDS: Sertraline 50 MG Tab PO SCH (09:05)
[2023-04-07] MEDS ORDERED: hydrALAZINE 20 MG/ML SDV IVPUSH PRN (09:10)
[2023-04-07] MEDS ORDERED: Metoprolol Tartrate 5 MG/5 ML SDV IVPUSH PRN (09:10)
[2023-04-07] MEDS ORDERED: Magnesium Sulfate/Water 2 GM in Premix Bag 1 BAG IV ONE ×3 (11:12→21:00)
[2023-04-07 17:32] LABS: BASOPHILS PERCENT AUTO 0.3 % (0.0-1.0); EOSINOPHILS PERCENT AUTO 3.7 % (1.0-3.0); HEMATOCRIT 33.2 % (37.0-47.0); HEMOGLOBIN 11.4 g/dL (12.0-16.0); LYMPHOCYTES PERCENT AUTO 16.1 % (20.5-50.1); MEAN CORPUSCULAR HEMOGLOBIN 34.8 pg (27.0-34.0); MEAN CORPUSCULAR HGB CONC 34.3 g/dL (33.0-35.0); MEAN CORPUSCULAR VOLUME 101.2 fL (80-100); MONOCYTES PERCENT AUTO 12.4 % (2-8); NEUTROPHILS PERCENT AUTO 67.5 % (42.2-75.2); PLATELET COUNT,PLT 95 10^3/uL (150-450); RED BLOOD CELL COUNT 3.28 10^6/uL (4.2-5.4); WHITE BLOOD CELL COUNT,WBC 6.7 10^3/uL (5.0-10.0)
[2023-04-07 17:46] LABS: ANION GAP 11.2 mEq/L (7-13); CALCIUM 7.9 mg/dL (8.5-10.1); CREATININE 0.75 mg/dL (0.55-1.02); EST CRCL DRUG DOSING (CG) 84.34 mL/min; MAGNESIUM 1.8 mg/dL (1.8-2.4); POTASSIUM,K 3.2 mmol/L (3.5-5.1)
[2023-04-08] MEDS: Acetaminophen 325 MG Tab PO PRN ×2 (00:33→17:00)
[2023-04-08] MEDS ORDERED: Magnesium Sulfate/Water 2 GM in Premix Bag 1 BAG IV ONE ×2 (01:56→19:35)
[2023-04-08] MEDS ORDERED: Potassium Chloride 20 MEQ in Premix Bag 1 BAG IV ONE ×4 (01:56→09:00)
[2023-04-08] MEDS: Pantoprazole 40 MG Vial IVPUSH SCH (06:01)
[2023-04-08] MEDS ORDERED: Lactulose Soln 10 GM/15 ML 30 ML UD Cup PO ONE (07:00)
[2023-04-08] MEDS: Dextrose 5%-0.9% NaCl 1,000 ML IV SCH ×2 (08:31→22:00)
[2023-04-08] MEDS: Multivitamin Tab PO SCH (08:35)
[2023-04-08] MEDS: Aspirin 81 MG Tab.Chew PO SCH (08:35)
[2023-04-08] MEDS: Cholecalciferol (Vitamin D3) 25 MCG Tab PO SCH (08:35)
[2023-04-08] MEDS: Thiamine 100 MG Tab PO SCH (08:35)
[2023-04-08] MEDS: Sertraline 50 MG Tab PO SCH (08:35)
[2023-04-09] MEDS: Pantoprazole 40 MG Vial IVPUSH SCH (05:27)
[2023-04-09 06:05] LABS: BASOPHILS PERCENT AUTO 0.3 % (0.0-1.0); EOSINOPHILS PERCENT AUTO 3.4 % (1.0-3.0); HEMOGLOBIN 9.6 g/dL (12.0-16.0); LYMPHOCYTES PERCENT AUTO 30.4 % (20.5-50.1); MEAN CORPUSCULAR HEMOGLOBIN 34.3 pg (27.0-34.0); MEAN CORPUSCULAR HGB CONC 33.1 g/dL (33.0-35.0); MEAN CORPUSCULAR VOLUME 103.6 fL (80-100); NEUTROPHILS PERCENT AUTO 48.9 % (42.2-75.2); PLATELET COUNT,PLT 100 10^3/uL (150-450); WHITE BLOOD CELL COUNT,WBC 6.7 10^3/uL (5.0-10.0)
[2023-04-09 06:28] LABS: A/G RATIO 0.3; ALBUMIN 1.6 g/dL (3.4-5.0); BUN/CREATININE RATIO 10.8 (No establ ref range); CALCIUM 7.6 mg/dL (8.5-10.1); CREATININE 0.65 mg/dL (0.55-1.02); EST CRCL DRUG DOSING (CG) 97.31 mL/min; MAGNESIUM 1.3 mg/dL (1.8-2.4)
[2023-04-09] MEDS ORDERED: Potassium Chloride 20 MEQ in Premix Bag 1 BAG IV ONE (07:00)
[2023-04-09] MEDS ORDERED: Lactulose Soln 10 GM/15 ML 30 ML UD Cup PO ONE (07:00)
[2023-04-09] MEDS: Cholecalciferol (Vitamin D3) 25 MCG Tab PO SCH (09:09)
[2023-04-09] MEDS: Sertraline 50 MG Tab PO SCH (09:09)
[2023-04-09] MEDS: Thiamine 100 MG Tab PO SCH (09:11)
[2023-04-09] MEDS: Multivitamin Tab PO SCH (09:11)
[2023-04-09] MEDS: Aspirin 81 MG Tab.Chew PO SCH (09:11)
[2023-04-09] MEDS ORDERED: Magnesium Sulfate/Water 2 GM in Premix Bag 1 BAG IV ONE ×2 (10:45→17:00)
[2023-04-09] MEDS ORDERED: Potassium Chloride 10 MEQ Tab.ER PO ONE (11:00)
[2023-04-09] MEDS: Emollient Combination No.71 177 ML Bottle TOP SCH ×2 (12:06→21:07)
[2023-04-09] MEDS: Potassium Chloride 10 MEQ Tab.ER PO SCH (17:08)
[2023-04-09] MEDS: Magnesium Oxide 400 MG Tab PO SCH (17:08)
[2023-04-09] MEDS: Acetaminophen 325 MG Tab PO PRN (23:30)
[2023-04-10] MEDS: Pantoprazole 40 MG Vial IVPUSH SCH (05:14)
[2023-04-10 07:10] LABS: BASOPHILS PERCENT AUTO 0.7 % (0.0-1.0); EOSINOPHILS PERCENT AUTO 6.8 % (1.0-3.0); HEMATOCRIT 28.8 % (37.0-47.0); HEMOGLOBIN 9.5 g/dL (12.0-16.0); LYMPHOCYTES PERCENT AUTO 31.2 % (20.5-50.1); MEAN CORPUSCULAR HEMOGLOBIN 34.2 pg (27.0-34.0); MEAN CORPUSCULAR VOLUME 103.6 fL (80-100); MONOCYTES PERCENT AUTO 16.6 % (2-8); NEUTROPHILS PERCENT AUTO 44.7 % (42.2-75.2); PLATELET COUNT,PLT 99 10^3/uL (150-450); RED BLOOD CELL COUNT 2.78 10^6/uL (4.2-5.4); WHITE BLOOD CELL COUNT,WBC 5.8 10^3/uL (5.0-10.0)
[2023-04-10 07:15] LABS: A/G RATIO 0.31; ALBUMIN 1.6 g/dL (3.4-5.0); ANION GAP 10.5 mEq/L (7-13); BILIRUBIN TOTAL 2.7 mg/dL (0.2-1.0); BUN/CREATININE RATIO 9.7 (No establ ref range); CALCIUM 7.6 mg/dL (8.5-10.1); CREATININE 0.62 mg/dL (0.55-1.02); EST CRCL DRUG DOSING (CG) 100.94 mL/min; MAGNESIUM 1.1 mg/dL (1.8-2.4); POTASSIUM,K 3.5 mmol/L (3.5-5.1); PROTEIN TOTAL,TP 6.7 g/dL (6.4-8.2)
[2023-04-10] MEDS: Potassium Chloride 10 MEQ Tab.ER PO SCH (09:42)
[2023-04-10] MEDS: Magnesium Oxide 400 MG Tab PO SCH (09:42)
[2023-04-10] MEDS: Aspirin 81 MG Tab.Chew PO SCH (09:43)
[2023-04-10] MEDS: Thiamine 100 MG Tab PO SCH (09:43)
[2023-04-10] MEDS: Cholecalciferol (Vitamin D3) 25 MCG Tab PO SCH (09:43)
[2023-04-10] MEDS: Multivitamin Tab PO SCH (09:43)
[2023-04-10] MEDS: Emollient Combination No.71 177 ML Bottle TOP SCH (09:44)
[2023-04-10] MEDS: Sertraline 50 MG Tab PO SCH (09:44)
== END 2023-04-10 11:30 | disposition swing bed (61) | DRG 441 ==
LOC: DL.ED 05:31 → EEVIPCON 07:50 → UNDOADMOB 07:50 → DL.MS 07:50 → OBSVTOIN 07:50 → DL.ED 07:50 → INTOOBSV 07:50
PROVIDERS: ADMIT Internal Medicine; ATTEND Internal Medicine
DX: K76.82 Hepatic encephalopathy (principal); G92.8 Other toxic encephalopathy; I63.9 Cerebral infarction, unspecified; E46 Unspecified protein-calorie malnutrition; F23 Brief psychotic disorder; M62.82 Rhabdomyolysis; K70.31 Alcoholic cirrhosis of liver with ascites; D50.9 Iron deficiency anemia, unspecified; G89.29 Other chronic pain; M54.9 Dorsalgia, unspecified; M16.0 Bilateral primary osteoarthritis of hip; G25.81 Restless legs syndrome; L30.9 Dermatitis, unspecified; E86.0 Dehydration; F10.20 Alcohol dependence, uncomplicated; E87.8 Other disorders of electrolyte and fluid balance, not elsewhere classified; E87.6 Hypokalemia; E78.5 Hyperlipidemia, unspecified; T42.3X5A Adverse effect of barbiturates, initial encounter; F15.10 Other stimulant abuse, uncomplicated; E83.42 Hypomagnesemia; R73.9 Hyperglycemia, unspecified; E88.09 Other disorders of plasma-protein metabolism, not elsewhere classified; D69.6 Thrombocytopenia, unspecified; F41.9 Anxiety disorder, unspecified; F32.A Depression, unspecified; Z20.822 Contact with and (suspected) exposure to COVID-19; R13.10 Dysphagia, unspecified; Z90.49 Acquired absence of other specified parts of digestive tract; I10 Essential (primary) hypertension; Z98.890 Other specified postprocedural states; Z88.5 Allergy status to narcotic agent; Z88.8 Allergy status to other drugs, medicaments and biological substances; Z68.23 Body mass index [BMI] 23.0-23.9, adult; Z87.440 Personal history of urinary (tract) infections; G89.4 Chronic pain syndrome; E66.9 Obesity, unspecified; Z79.899 Other long term (current) drug therapy; Z87.891 Personal history of nicotine dependence
CPT/HCPCS: 0240U; 36415; 70450; 70551; 71045; 74018; 80048; 80053; 80061; 80305-QW; 80307; 81001; 82140; 82306; 82550; 82947; 83036; 83605; 83690; 83735; 83880; 84439; 84443; 85025; 85610; 85730; 86140; 87040; 92610-GN; 96374; 97161-GP; 97165-GO; 97530-GO; 97530-GP; 97535-GO; 99223; 99232; 99233; 99238; 99285; 99285-25; A9270-GY; C9113; J0360; J1630; J2060; J2405; J3411; J3430; J3475; J3480; J3490; J7042; J7120

== ENCOUNTER 2023-04-10 08:55 | Inpatient (IN) | payer MEDICAID ==
[2023-04-10] MEDS ORDERED: Acetaminophen 325 MG Tab PO PRN (11:24)
[2023-04-10] MEDS ORDERED: Polyethylene Glycol 3350 Powder 17 GM Packet PO PRN (11:24)
[2023-04-10] MEDS ORDERED: Haloperidol Lactate 5 MG/ML SDV IM PRN (11:24)
[2023-04-10] MEDS ORDERED: Sennosides/Docusate Sodium 50-8.6 MG Tab PO PRN (11:24)
[2023-04-10] MEDS ORDERED: Magnesium Hydroxide 400 MG/5 ML Susp 30 ML Cup PO PRN (11:24)
[2023-04-10] MEDS ORDERED: Melatonin 3 MG Tab PO PRN (11:24)
[2023-04-10] MEDS ORDERED: Albuterol/Ipratropium 3.0-0.5 MG/3 ML Neb Soln NEB PRN (11:24)
[2023-04-10] MEDS ORDERED: Potassium Chloride 10 MEQ Tab.ER PO SCH (18:00)
[2023-04-10] MEDS ORDERED: Magnesium Oxide 400 MG Tab PO SCH (18:00)
[2023-04-10] MEDS ORDERED: Emollient Combination No.71 177 ML Bottle TOP SCH (21:00)
[2023-04-11] MEDS ORDERED: Aspirin 81 MG Tab.Chew PO SCH (08:00)
[2023-04-11] MEDS ORDERED: Cholecalciferol (Vitamin D3) 25 MCG Tab PO SCH (09:00)
[2023-04-11] MEDS ORDERED: Thiamine 100 MG Tab PO SCH (09:00)
[2023-04-11] MEDS ORDERED: Sertraline 50 MG Tab PO SCH (09:00)
[2023-04-11] MEDS ORDERED: Multivitamin Tab PO SCH (09:00)
== END 2023-04-10 18:15 | disposition left against medical advice (07) | DRG 948 ==
LOC: DL.MS 11:27 → UNDOADMIN 11:30 → DL.MS 11:30 → UNDODISIN 18:15
PROVIDERS: ADMIT Internal Medicine; ATTEND Internal Medicine
DX: R53.1 Weakness (principal); I69.398 Other sequelae of cerebral infarction; M54.9 Dorsalgia, unspecified; G89.29 Other chronic pain; M16.0 Bilateral primary osteoarthritis of hip; G25.81 Restless legs syndrome; I10 Essential (primary) hypertension; F41.9 Anxiety disorder, unspecified; F32.A Depression, unspecified; D50.9 Iron deficiency anemia, unspecified; Z87.891 Personal history of nicotine dependence; Z88.5 Allergy status to narcotic agent; Z88.8 Allergy status to other drugs, medicaments and biological substances; Z79.899 Other long term (current) drug therapy; Z87.440 Personal history of urinary (tract) infections; Z90.49 Acquired absence of other specified parts of digestive tract
CPT/HCPCS: 97161-GP; 97165-GO; 97535-GO; 99306

== ENCOUNTER 2023-04-15 12:01 | Emergency (ER) | payer MEDICAID ==
[2023-04-15] MEDS ORDERED: Lactulose Soln 10 GM/15 ML 30 ML UD Cup PO ONE (12:22)
[2023-04-15] MEDS ORDERED: Sodium Chloride 0.9% 1,000 ML IV ONE (12:22)
[2023-04-15 12:39] LABS: BASOPHILS PERCENT AUTO 0.4 % (0.0-1.0); EOSINOPHILS PERCENT AUTO 4.2 % (1.0-3.0); HEMATOCRIT 32.3 % (37.0-47.0); HEMOGLOBIN 10.6 g/dL (12.0-16.0); LYMPHOCYTES PERCENT AUTO 38.1 % (20.5-50.1); MEAN CORPUSCULAR HEMOGLOBIN 33.7 pg (27.0-34.0); MEAN CORPUSCULAR HGB CONC 32.8 g/dL (33.0-35.0); MEAN CORPUSCULAR VOLUME 102.5 fL (80-100); MONOCYTES PERCENT AUTO 10.9 % (2-8); NEUTROPHILS PERCENT AUTO 46.4 % (42.2-75.2); PLATELET COUNT,PLT 127 10^3/uL (150-450); RED BLOOD CELL COUNT 3.15 10^6/uL (4.2-5.4)
[2023-04-15] MEDS ORDERED: Famotidine 20 MG/2 ML SDV IVPUSH ONE (12:45)
[2023-04-15] MEDS ORDERED: Ondansetron 4 MG/2 ML SDV IV ONE (12:45)
[2023-04-15] MEDS: Sodium Chloride 0.9% 10 ML Syringe FLUSH PRN ×2 (12:57→12:59)
[2023-04-15 12:59] LABS: ALANINE AMINOTRANSFERASE,ALT 20 U/L (14-59); ALBUMIN 2.1 g/dL (3.4-5.0); ALKALINE PHOSPHATASE 142 U/L (46-116); ANION GAP 14.3 mEq/L (7-13); ASPARTATE AMNIOTRANSFERASE,AST 40 U/L (15-37); BILIRUBIN TOTAL 2.3 mg/dL (0.2-1.0); BLOOD UREA NITROGEN,BUN 21 mg/dL (7-18); BUN/CREATININE RATIO 30.4 (No establ ref range); CALCIUM 7.9 mg/dL (8.5-10.1); CARBON DIOXIDE,CO2 23 mmol/L (21-32); CHLORIDE,CL 111 mmol/L (98-107); CREATININE 0.69 mg/dL (0.55-1.02); EST CRCL DRUG DOSING (CG) 76.06 mL/min; GLUCOSE RANDOM 106 mg/dL (70-99); LIPASE 41 U/L (16-77); MAGNESIUM 1.4 mg/dL (1.8-2.4); POTASSIUM,K 3.3 mmol/L (3.5-5.1); PROTEIN TOTAL,TP 8.4 g/dL (6.4-8.2); SODIUM,NA 145 mmol/L (136-145)
[2023-04-15 13:02] LABS: A/G RATIO 0.33; ESTIMATED GFR 108 mL/min (>=60); ETHANOL BLOOD MEDICAL < 3 mg/dL (0)
[2023-04-15 13:03] LABS: INR 1.4 (0.9-1.2); LACTIC ACID 2.9 mmol/L (0.4-2.0); PROTHROMBIN TIME 14.4 SEC (9.0-12.0)
[2023-04-15] MEDS ORDERED: Rifaximin 550 MG Tab PO ONE (13:23)
[2023-04-15] MEDS ORDERED: Midazolam 1 MG/ML 2 ML SDV IVPUSH ONE (13:24)
[2023-04-15] MEDS ORDERED: Lactulose Soln 10 GM/15 ML 946 ML Bottle RECTAL ONE (13:54)
[2023-04-15] MEDS ORDERED: Dextrose 5%-0.9% NaCl with KCl 1,000 ML IV SCH (14:00)
[2023-04-15] MEDS ORDERED: LORazepam 2 MG/ML SDV IVPUSH ONE (15:05)
[2023-04-15] MEDS ORDERED: Magnesium Sulfate/Water 2 GM in Premix Bag 1 BAG IV ONE (15:18)
== END 2023-04-15 15:25 ==
LOC: DL.ED 12:01
DX: K76.82 Hepatic encephalopathy (principal); E83.42 Hypomagnesemia; I10 Essential (primary) hypertension; E66.9 Obesity, unspecified; Z68.24 Body mass index [BMI] 24.0-24.9, adult; Z88.6 Allergy status to analgesic agent; Z88.5 Allergy status to narcotic agent; Z79.899 Other long term (current) drug therapy
CPT/HCPCS: 36415; 80053; 80307; 82140; 82947; 83605; 83690; 83735; 84145; 85025; 85610; 85730; 87040; 96361; 96365; 96375; 99285; 99285-25; J2060; J2250; J2405; J3475; J3480; J3490; J7030

== ENCOUNTER 2023-04-22 16:03 | Inpatient (IN) | payer MEDICAID ==
[~2023-04-22 16:03] MED LIST: LORazepam 2 MG/ML SDV IVPUSH ONE; Lactulose Soln 10 GM/15 ML 30 ML UD Cup PO ONE
[2023-04-22] MEDS ORDERED: Lactulose Soln 10 GM/15 ML 30 ML UD Cup PO ONE (16:04)
[2023-04-22] MEDS: Sodium Chloride 0.9% 10 ML Syringe FLUSH PRN (16:06)
[2023-04-22 16:12] LABS: BASOPHILS PERCENT AUTO 0.4 % (0.0-1.0); EOSINOPHILS PERCENT AUTO 1.5 % (1.0-3.0); HEMATOCRIT 30.4 % (37.0-47.0); HEMOGLOBIN 10.2 g/dL (12.0-16.0); LYMPHOCYTES PERCENT AUTO 33.4 % (20.5-50.1); MEAN CORPUSCULAR HEMOGLOBIN 33.7 pg (27.0-34.0); MEAN CORPUSCULAR HGB CONC 33.6 g/dL (33.0-35.0); MEAN CORPUSCULAR VOLUME 100.3 fL (80-100); MONOCYTES PERCENT AUTO 12.2 % (2-8); NEUTROPHILS PERCENT AUTO 52.5 % (42.2-75.2); PLATELET COUNT,PLT 125 10^3/uL (150-450); RED BLOOD CELL COUNT 3.03 10^6/uL (4.2-5.4); WHITE BLOOD CELL COUNT,WBC 5.2 10^3/uL (5.0-10.0)
[2023-04-22 16:28] LABS: ANION GAP 15.2 mEq/L (7-13); BILIRUBIN TOTAL 2.7 mg/dL (0.2-1.0); BUN/CREATININE RATIO 26.3 (No establ ref range); CALCIUM 7.9 mg/dL (8.5-10.1); CREATININE 0.76 mg/dL (0.55-1.02); EST CRCL DRUG DOSING (CG) 69.05 mL/min; POTASSIUM,K 3.2 mmol/L (3.5-5.1); PROTEIN TOTAL,TP 8.2 g/dL (6.4-8.2)
[2023-04-22 16:29] LABS: A/G RATIO 0.32
[2023-04-22] MEDS ORDERED: Potassium Chloride 10 MEQ Tab.ER PO ONE (16:36)
[2023-04-22] MEDS ORDERED: Ondansetron 4 MG Tab.DIS PO PRN (17:38)
[2023-04-22] MEDS ORDERED: Docusate Sodium 100 MG Cap PO PRN (17:38)
[2023-04-22] MEDS ORDERED: Sodium Chloride 0.9% 1,000 ML IV SCH (17:45)
[2023-04-22 19:14] LABS: APPEARANCE,URINE SLIGHTLY CLOUDY (CLEAR); BILIRUBIN,URINE NEGATIVE (NEGATIVE); COLOR,URINE YELLOW (YELLOW); GLUCOSE,URINE NEGATIVE (NEGATIVE); KETONES,URINE NEGATIVE (NEGATIVE); LEUKOCYTE ESTERASE,URINE MODERATE (NEGATIVE); NITRITE,URINE NEGATIVE (NEGATIVE); OCCULT BLOOD,URINE SMALL (NEGATIVE); PH,URINE 8.5 (5.0-9.0); PROTEIN,URINE 100 (NEGATIVE)
[2023-04-22 19:39] LABS: WBC,URINE >100 /HPF (0-5/HPF)
[2023-04-22 19:40] LABS: BACTERIA,URINE MANY /HPF (0-FEW/HPF); EPITHELIAL CELLS,URINE MODERATE /HPF (NOT SEEN); MUCUS,URINE FEW /LPF (NOT SEEN)
[2023-04-22] MEDS: LORazepam 0.5 MG Tab PO PRN (20:07)
[2023-04-22] MEDS: Acetaminophen 325 MG Tab PO PRN (20:38)
[2023-04-22] MEDS: Rifaximin 550 MG Tab PO SCH (20:38)
[2023-04-22] MEDS ORDERED: Rifaximin 550 MG Tab PO SCH (21:00)
[2023-04-23] MEDS: LORazepam 0.5 MG Tab PO PRN ×3 (00:19→20:46)
[2023-04-23] MEDS: Lactulose Soln 10 GM/15 ML 30 ML UD Cup PO SCH ×5 (00:25→23:00)
[2023-04-23 06:47] LABS: ALBUMIN 1.6 g/dL (3.4-5.0); ANION GAP 12.4 mEq/L (7-13); BILIRUBIN TOTAL 2.2 mg/dL (0.2-1.0); BUN/CREATININE RATIO 23.5 (No establ ref range); CALCIUM 7.3 mg/dL (8.5-10.1); CREATININE 0.68 mg/dL (0.55-1.02); EST CRCL DRUG DOSING (CG) 77.18 mL/min; POTASSIUM,K 3.4 mmol/L (3.5-5.1); PROTEIN TOTAL,TP 6.8 g/dL (6.4-8.2)
[2023-04-23 06:57] LABS: A/G RATIO 0.31
[2023-04-23] MEDS ORDERED: Magnesium Sulfate/Water 4 GM in Premix Bag 1 BAG IV ONE (07:32)
[2023-04-23] MEDS ORDERED: Potassium Chloride 10 MEQ Tab.ER PO ONE (07:34)
[2023-04-23] MEDS: Aspirin 81 MG Tab.EC PO SCH ×2 (07:53→07:59)
[2023-04-23] MEDS: Rifaximin 550 MG Tab PO SCH ×3 (07:55→20:46)
[2023-04-23] MEDS: Losartan 50 MG Tab PO SCH ×2 (07:55→07:59)
[2023-04-23] MEDS: Levofloxacin/Dextrose 5%-Water 500 MG in Premix Bag 1 BAG IV SCH (07:57)
[2023-04-23] MEDS: Ferrous Sulfate 325 MG Tab PO SCH (07:59)
[2023-04-23] MEDS: Acetaminophen 325 MG Tab PO PRN (10:35)
[2023-04-23] MEDS: Sodium Chloride 0.9% 10 ML Syringe FLUSH PRN (20:52)
[2023-04-24] MEDS: Acetaminophen 325 MG Tab PO PRN ×2 (01:54→23:52)
[2023-04-24] MEDS: LORazepam 0.5 MG Tab PO PRN ×4 (01:55→23:53)
[2023-04-24] MEDS: Lactulose Soln 10 GM/15 ML 30 ML UD Cup PO SCH ×4 (05:51→23:52)
[2023-04-24 06:33] LABS: CALCIUM 7.3 mg/dL (8.5-10.1); CREATININE 0.73 mg/dL (0.55-1.02); EST CRCL DRUG DOSING (CG) 71.89 mL/min; MAGNESIUM 1.3 mg/dL (1.8-2.4)
[2023-04-24] MEDS ORDERED: Magnesium Sulfate/Water 4 GM in Premix Bag 1 BAG IV ONE (07:22)
[2023-04-24] MEDS: Rifaximin 550 MG Tab PO SCH ×2 (09:52→21:16)
[2023-04-24] MEDS: Magnesium Oxide 400 MG Tab PO SCH ×2 (09:54→18:50)
[2023-04-24] MEDS: Aspirin 81 MG Tab.EC PO SCH (09:54)
[2023-04-24] MEDS: Ferrous Sulfate 325 MG Tab PO SCH (09:54)
[2023-04-24] MEDS: Losartan 50 MG Tab PO SCH (09:54)
[2023-04-24] MEDS: Potassium Chloride 10 MEQ Tab.ER PO SCH ×2 (09:55→18:50)
[2023-04-24] MEDS: Levofloxacin/Dextrose 5%-Water 500 MG in Premix Bag 1 BAG IV SCH (11:18)
[2023-04-25] MEDS: Lactulose Soln 10 GM/15 ML 30 ML UD Cup PO SCH ×3 (05:39→21:11)
[2023-04-25 06:35] LABS: CALCIUM 7.1 mg/dL (8.5-10.1); CREATININE 0.76 mg/dL (0.55-1.02); EST CRCL DRUG DOSING (CG) 69.05 mL/min; MAGNESIUM 1.4 mg/dL (1.8-2.4); POTASSIUM,K 3.2 mmol/L (3.5-5.1)
[2023-04-25 07:02] LABS: ANION GAP 11.2 mEq/L (7-13)
[2023-04-25] MEDS: Aspirin 81 MG Tab.EC PO SCH (08:15)
[2023-04-25] MEDS: Rifaximin 550 MG Tab PO SCH ×2 (08:15→21:11)
[2023-04-25] MEDS: Levofloxacin/Dextrose 5%-Water 500 MG in Premix Bag 1 BAG IV SCH (08:15)
[2023-04-25] MEDS: Ferrous Sulfate 325 MG Tab PO SCH (08:16)
[2023-04-25] MEDS: Potassium Chloride 10 MEQ Tab.ER PO SCH ×2 (08:18→17:14)
[2023-04-25] MEDS: Magnesium Oxide 400 MG Tab PO SCH ×2 (08:19→17:14)
[2023-04-25] MEDS: Losartan 50 MG Tab PO SCH (08:22)
[2023-04-25] MEDS ORDERED: Magnesium Sulfate/Water 2 GM in Premix Bag 1 BAG IV ONE ×2 (10:41→17:00)
[2023-04-25] MEDS: LORazepam 0.5 MG Tab PO PRN ×2 (13:45→21:10)
[2023-04-25] MEDS: Acetaminophen 325 MG Tab PO PRN ×2 (16:38→22:39)
[2023-04-25] MEDS ORDERED: Midodrine 5 MG Tab PO PRN (19:06)
[2023-04-25] MEDS ORDERED: Potassium Chloride 20 MEQ in Premix Bag 1 BAG IV ONE (19:07)
[2023-04-25] MEDS: Sodium Chloride 0.9% 10 ML Syringe FLUSH PRN (19:55)
[2023-04-26] MEDS: Lactulose Soln 10 GM/15 ML 30 ML UD Cup PO SCH ×4 (05:24→23:42)
[2023-04-26] MEDS: LORazepam 0.5 MG Tab PO PRN ×2 (05:24→20:23)
[2023-04-26 06:32] LABS: BASOPHILS PERCENT AUTO 0.4 % (0.0-1.0); HEMATOCRIT 27.6 % (37.0-47.0); HEMOGLOBIN 9.1 g/dL (12.0-16.0); LYMPHOCYTES PERCENT AUTO 35.9 % (20.5-50.1); MEAN CORPUSCULAR HEMOGLOBIN 33.7 pg (27.0-34.0); MEAN CORPUSCULAR VOLUME 102.2 fL (80-100); MONOCYTES PERCENT AUTO 15.6 % (2-8); NEUTROPHILS PERCENT AUTO 41.1 % (42.2-75.2); PLATELET COUNT,PLT 125 10^3/uL (150-450); WHITE BLOOD CELL COUNT,WBC 5.1 10^3/uL (5.0-10.0)
[2023-04-26 06:54] LABS: ALBUMIN 1.6 g/dL (3.4-5.0); BILIRUBIN TOTAL 1.4 mg/dL (0.2-1.0); BUN/CREATININE RATIO 11.8 (No establ ref range); CALCIUM 7.4 mg/dL (8.5-10.1); CREATININE 0.68 mg/dL (0.55-1.02); EST CRCL DRUG DOSING (CG) 77.18 mL/min; MAGNESIUM 1.6 mg/dL (1.8-2.4); PROTEIN TOTAL,TP 7.4 g/dL (6.4-8.2)
[2023-04-26 07:02] LABS: A/G RATIO 0.28
[2023-04-26] MEDS ORDERED: Magnesium Sulfate/Water 2 GM in Premix Bag 1 BAG IV ONE ×3 (08:28→18:00)
[2023-04-26] MEDS: Rifaximin 550 MG Tab PO SCH ×2 (08:53→20:23)
[2023-04-26] MEDS: Losartan 50 MG Tab PO SCH (08:53)
[2023-04-26] MEDS: Magnesium Oxide 400 MG Tab PO SCH ×2 (08:53→17:06)
[2023-04-26] MEDS: Aspirin 81 MG Tab.EC PO SCH (08:53)
[2023-04-26] MEDS: Ferrous Sulfate 325 MG Tab PO SCH (08:53)
[2023-04-26] MEDS: Levofloxacin/Dextrose 5%-Water 500 MG in Premix Bag 1 BAG IV SCH (09:32)
[2023-04-27] MEDS: Lactulose Soln 10 GM/15 ML 30 ML UD Cup PO SCH (05:44)
[2023-04-27 06:15] LABS: BASOPHILS PERCENT AUTO 0.5 % (0.0-1.0); EOSINOPHILS PERCENT AUTO 5.3 % (1.0-3.0); HEMATOCRIT 27.6 % (37.0-47.0); HEMOGLOBIN 9.2 g/dL (12.0-16.0); LYMPHOCYTES PERCENT AUTO 41.3 % (20.5-50.1); MEAN CORPUSCULAR HEMOGLOBIN 33.6 pg (27.0-34.0); MEAN CORPUSCULAR HGB CONC 33.3 g/dL (33.0-35.0); MEAN CORPUSCULAR VOLUME 100.7 fL (80-100); MONOCYTES PERCENT AUTO 13.1 % (2-8); NEUTROPHILS PERCENT AUTO 39.8 % (42.2-75.2); PLATELET COUNT,PLT 141 10^3/uL (150-450); RED BLOOD CELL COUNT 2.74 10^6/uL (4.2-5.4); WHITE BLOOD CELL COUNT,WBC 5.5 10^3/uL (5.0-10.0)
[2023-04-27 06:39] LABS: ALBUMIN 1.6 g/dL (3.4-5.0); ANION GAP 10.6 mEq/L (7-13); BILIRUBIN TOTAL 1.8 mg/dL (0.2-1.0); BUN/CREATININE RATIO 10.3 (No establ ref range); CALCIUM 7.8 mg/dL (8.5-10.1); CREATININE 0.68 mg/dL (0.55-1.02); EST CRCL DRUG DOSING (CG) 77.18 mL/min; MAGNESIUM 1.6 mg/dL (1.8-2.4); POTASSIUM,K 3.6 mmol/L (3.5-5.1); PROTEIN TOTAL,TP 7.2 g/dL (6.4-8.2)
[2023-04-27 06:42] LABS: A/G RATIO 0.29
[2023-04-27] MEDS: Losartan 50 MG Tab PO SCH (08:11)
[2023-04-27] MEDS: Levofloxacin/Dextrose 5%-Water 500 MG in Premix Bag 1 BAG IV SCH (08:11)
[2023-04-27] MEDS: Ferrous Sulfate 325 MG Tab PO SCH (08:11)
[2023-04-27] MEDS: Rifaximin 550 MG Tab PO SCH (08:11)
[2023-04-27] MEDS: Magnesium Oxide 400 MG Tab PO SCH (08:11)
[2023-04-27] MEDS: Aspirin 81 MG Tab.EC PO SCH (08:11)
[2023-04-27] MEDS ORDERED: Magnesium Sulfate/Water 2 GM in Premix Bag 1 BAG IV ONE ×2 (08:24→11:00)
== END 2023-04-27 12:10 | disposition home or self-care (01) | DRG 442 ==
LOC: DL.ED 16:03 → DL.MS 16:47
PROVIDERS: ADMIT Internal Medicine; ATTEND Internal Medicine
DX: K76.82 Hepatic encephalopathy (principal); E72.20 Disorder of urea cycle metabolism, unspecified; N39.0 Urinary tract infection, site not specified; Z16.39 Resistance to other specified antimicrobial drug; K70.30 Alcoholic cirrhosis of liver without ascites; I10 Essential (primary) hypertension; M54.9 Dorsalgia, unspecified; G89.29 Other chronic pain; F41.9 Anxiety disorder, unspecified; F32.A Depression, unspecified; E66.9 Obesity, unspecified; E83.42 Hypomagnesemia; E87.6 Hypokalemia; E78.5 Hyperlipidemia, unspecified; D50.9 Iron deficiency anemia, unspecified; M19.90 Unspecified osteoarthritis, unspecified site; G25.81 Restless legs syndrome; D53.9 Nutritional anemia, unspecified; D69.6 Thrombocytopenia, unspecified; E88.09 Other disorders of plasma-protein metabolism, not elsewhere classified; I95.9 Hypotension, unspecified; E87.8 Other disorders of electrolyte and fluid balance, not elsewhere classified; B95.2 Enterococcus as the cause of diseases classified elsewhere; Z88.5 Allergy status to narcotic agent; Z88.8 Allergy status to other drugs, medicaments and biological substances; Z79.899 Other long term (current) drug therapy; Z86.73 Personal history of transient ischemic attack (TIA), and cerebral infarction without residual deficits; Z68.24 Body mass index [BMI] 24.0-24.9, adult; Z90.49 Acquired absence of other specified parts of digestive tract; Z98.891 History of uterine scar from previous surgery; Z87.891 Personal history of nicotine dependence; Z91.148 Patient's other noncompliance with medication regimen for other reason; Z79.82 Long term (current) use of aspirin
CPT/HCPCS: 36415; 80048; 80053; 81001; 82140; 83735; 85025; 87086; 87088; 87186; 96374; 99232; 99238; 99285; 99285-25; A9270-GY; J1956; J2060; J3475; J3480; J3490; J7030

== ENCOUNTER 2023-05-04 13:06 | Emergency (ER) | payer MEDICAID ==
[2023-05-04] MEDS ORDERED: Sodium Chloride 0.9% 10 ML Syringe FLUSH PRN (13:17)
[2023-05-04 13:40] LABS: HEMATOCRIT 30.6 % (37.0-47.0); HEMOGLOBIN 10.1 g/dL (12.0-16.0); PLATELET COUNT,PLT 126 10^3/uL (150-450); RED BLOOD CELL COUNT 2.97 10^6/uL (4.2-5.4); WHITE BLOOD CELL COUNT,WBC 5.4 10^3/uL (5.0-10.0)
[2023-05-04 13:43] LABS: BASOPHILS PERCENT AUTO 0.4 % (0.0-1.0); EOSINOPHILS PERCENT AUTO 1.5 % (1.0-3.0); LYMPHOCYTES PERCENT AUTO 63.5 % (20.5-50.1); MONOCYTES PERCENT AUTO 8.6 % (2-8)
[2023-05-04 13:57] LABS: INR 1.2 (0.9-1.2); PROTHROMBIN TIME 12.7 SEC (9.0-12.0); PTT,PARTIAL THROMBOPLSTIN TIME 28.6 SEC (22.0-34.0)
[2023-05-04 14:05] LABS: LACTIC ACID 3.9 mmol/L (0.4-2.0)
[2023-05-04 14:06] LABS: ANISOCYTOSIS 1+ SLIGHT; EOSINOPHILS PERCENT MAN 1 % (1-3); LYMPHOCYTES PERCENT MAN 63 % (20-50); MONOCYTES PERCENT MAN 3 % (2-8); PLATELET COUNT ESTIMATE DECREASED; SEG NEUTROPHILS PERCENT MAN 33 % (42-75); TARGET CELLS 1+ SLIGHT
[2023-05-04 14:13] LABS: ALANINE AMINOTRANSFERASE,ALT 33 U/L (14-59); ALKALINE PHOSPHATASE 149 U/L (46-116); AMYLASE 38 U/L (25-115); ANION GAP 13.5 mEq/L (7-13); ASPARTATE AMNIOTRANSFERASE,AST 73 U/L (15-37); BILIRUBIN TOTAL 1.8 mg/dL (0.2-1.0); BLOOD UREA NITROGEN,BUN 8 mg/dL (7-18); BUN/CREATININE RATIO 12.5 (No establ ref range); CALCIUM 8.2 mg/dL (8.5-10.1); CARBON DIOXIDE,CO2 23 mmol/L (21-32); CHLORIDE,CL 106 mmol/L (98-107); CREATININE 0.64 mg/dL (0.55-1.02); ETHANOL BLOOD MEDICAL 257 mg/dL (0); GLUCOSE RANDOM 125 mg/dL (70-99); LIPASE 41 U/L (16-77); MAGNESIUM 1.6 mg/dL (1.8-2.4); POTASSIUM,K 3.5 mmol/L (3.5-5.1); PROTEIN TOTAL,TP 8.2 g/dL (6.4-8.2); SODIUM,NA 139 mmol/L (136-145)
[2023-05-04 14:16] LABS: A/G RATIO 0.32; C-REACTIVE PROTEIN < 0.50 ng/dL (<=0.50); ESTIMATED GFR 110 mL/min (>=60)
[2023-05-04] MEDS ORDERED: Sodium Chloride 0.9% 1,000 ML IV ONE (14:24)
[2023-05-04] MEDS ORDERED: LINEZOLID IV SCH (15:00)
[2023-05-04] MEDS ORDERED: Linezolid 600 MG in Premix Bag 1 BAG IV ONE (15:15)
== END 2023-05-04 16:37 | disposition home or self-care (01) ==
LOC: DL.ED 13:06
DX: K76.82 Hepatic encephalopathy (principal); N39.0 Urinary tract infection, site not specified; E83.42 Hypomagnesemia; F10.920 Alcohol use, unspecified with intoxication, uncomplicated; Z88.5 Allergy status to narcotic agent; Z88.8 Allergy status to other drugs, medicaments and biological substances; Z79.899 Other long term (current) drug therapy
CPT/HCPCS: 36415; 80053; 80307; 82140; 82150; 83605; 83690; 83735; 84145; 85025; 85610; 85730; 86140; 87040; 92950; 96365; 99284; 99284-25; J2020; J3490; J7030

== ENCOUNTER 2023-05-06 07:06 | Emergency (ER) | payer MEDICAID ==
[~2023-05-06 07:06] MED LIST changes: -LORazepam 2 MG/ML SDV IVPUSH ONE; -Lactulose Soln 10 GM/15 ML 30 ML UD Cup PO ONE; +Sodium Chloride 0.9% 10 ML Syringe FLUSH PRN
[2023-05-06] MEDS ORDERED: LINEZOLID IV SCH (07:15)
[2023-05-06 07:19] LABS: HEMATOCRIT 27.9 % (37.0-47.0); HEMOGLOBIN 9.3 g/dL (12.0-16.0); MEAN CORPUSCULAR HEMOGLOBIN 34.2 pg (27.0-34.0); MEAN CORPUSCULAR HGB CONC 33.3 g/dL (33.0-35.0); MEAN CORPUSCULAR VOLUME 102.6 fL (80-100); PLATELET COUNT,PLT 82 10^3/uL (150-450); RED BLOOD CELL COUNT 2.72 10^6/uL (4.2-5.4); WHITE BLOOD CELL COUNT,WBC 3.8 10^3/uL (5.0-10.0)
[2023-05-06 07:22] LABS: BASOPHILS PERCENT AUTO 0.3 % (0.0-1.0); EOSINOPHILS PERCENT AUTO 1.6 % (1.0-3.0); LYMPHOCYTES PERCENT AUTO 69.5 % (20.5-50.1); MONOCYTES PERCENT AUTO 5.2 % (2-8); NEUTROPHILS PERCENT AUTO 23.4 % (42.2-75.2)
[2023-05-06 07:38] LABS: ALBUMIN 1.8 g/dL (3.4-5.0); ANION GAP 11.2 mEq/L (7-13); BILIRUBIN TOTAL 1.5 mg/dL (0.2-1.0); BUN/CREATININE RATIO 10.6 (No establ ref range); CALCIUM 7.6 mg/dL (8.5-10.1); CREATININE 0.66 mg/dL (0.55-1.02); EST CRCL DRUG DOSING (CG) 79.51 mL/min; POTASSIUM,K 3.2 mmol/L (3.5-5.1); PROTEIN TOTAL,TP 7.5 g/dL (6.4-8.2)
[2023-05-06 07:39] LABS: A/G RATIO 0.32
[2023-05-06 07:43] LABS: LACTIC ACID 3.7 mmol/L (0.4-2.0)
[2023-05-06] MEDS ORDERED: Sodium Chloride 0.9% 1,000 ML IV ONE (07:51)
[2023-05-06] MEDS ORDERED: Potassium Chloride 10 MEQ Tab.ER PO ONE (08:19)
[2023-05-06 09:36] LABS: EOSINOPHILS PERCENT MAN 2 % (1-3); HYPOCHROMASIA 1+ SLIGHT; LYMPHOCYTES PERCENT MAN 64 % (20-50); MONOCYTES PERCENT MAN 4 % (2-8); SEG NEUTROPHILS PERCENT MAN 30 % (42-75)
== END 2023-05-06 09:21 | disposition home or self-care (01) ==
LOC: DL.ED 07:06
DX: K70.31 Alcoholic cirrhosis of liver with ascites (principal); E87.6 Hypokalemia; E72.20 Disorder of urea cycle metabolism, unspecified; R74.02 Elevation of levels of lactic acid dehydrogenase [LDH]; R74.01 Elevation of levels of liver transaminase levels; F10.129 Alcohol abuse with intoxication, unspecified; I10 Essential (primary) hypertension; Z88.5 Allergy status to narcotic agent; Z88.1 Allergy status to other antibiotic agents; Z88.6 Allergy status to analgesic agent; Z88.8 Allergy status to other drugs, medicaments and biological substances; Z79.899 Other long term (current) drug therapy; Z86.16 Personal history of COVID-19; Z90.49 Acquired absence of other specified parts of digestive tract
CPT/HCPCS: 36415; 80053; 80307; 82140; 83605; 85025; 96365; 99284; 99285-25; A9270-GY; J2020; J3490; J7030

== ENCOUNTER 2023-07-01 22:02 | Emergency (ER) | payer MEDICAID ==
[2023-07-01] MEDS ORDERED: Phenazopyridine 95 MG Tab PO ONE ×2 (22:03→23:18)
[2023-07-01] MEDS ORDERED: Acetaminophen 500 MG Tab PO ONE (22:11)
[2023-07-01] MEDS ORDERED: levETIRAcetam in NaCl (iso-os) 1,000 MG in Premix Bag 1 BAG IV ONE ×2 (22:12)
[2023-07-01 22:23] LABS: BASOPHILS PERCENT AUTO 0.4 % (0.0-1.0); EOSINOPHILS PERCENT AUTO 3.7 % (1.0-3.0); HEMATOCRIT 29.2 % (37.0-47.0); HEMOGLOBIN 9.4 g/dL (12.0-16.0); LYMPHOCYTES PERCENT AUTO 41.2 % (20.5-50.1); MEAN CORPUSCULAR HEMOGLOBIN 30.6 pg (27.0-34.0); MEAN CORPUSCULAR HGB CONC 32.2 g/dL (33.0-35.0); MEAN CORPUSCULAR VOLUME 95.1 fL (80-100); NEUTROPHILS PERCENT AUTO 36.7 % (42.2-75.2); PLATELET COUNT,PLT 112 10^3/uL (150-450); RED BLOOD CELL COUNT 3.07 10^6/uL (4.2-5.4); WHITE BLOOD CELL COUNT,WBC 6.8 10^3/uL (5.0-10.0)
[2023-07-01 22:43] LABS: ALANINE AMINOTRANSFERASE,ALT 37 U/L (14-59); ALKALINE PHOSPHATASE 190 U/L (46-116); ANION GAP 14.5 mEq/L (7-13); ASPARTATE AMNIOTRANSFERASE,AST 54 U/L (15-37); BLOOD UREA NITROGEN,BUN 10 mg/dL (7-18); BUN/CREATININE RATIO 13.9 (No establ ref range); CALCIUM 7.5 mg/dL (8.5-10.1); CARBON DIOXIDE,CO2 22 mmol/L (21-32); CHLORIDE,CL 109 mmol/L (98-107); CREATININE 0.72 mg/dL (0.55-1.02); EST CRCL DRUG DOSING (CG) 83.41 mL/min; ETHANOL BLOOD MEDICAL 206 mg/dL (0); GLUCOSE RANDOM 118 mg/dL (70-99); LIPASE 57 U/L (16-77); POTASSIUM,K 3.5 mmol/L (3.5-5.1); PROTEIN TOTAL,TP 6.8 g/dL (6.4-8.2); SODIUM,NA 142 mmol/L (136-145)
[2023-07-01 22:47] LABS: LACTIC ACID 1.9 mmol/L (0.4-2.0)
[2023-07-01 22:56] LABS: A/G RATIO 0.42; C-REACTIVE PROTEIN < 0.50 ng/dL (<=0.50); ESTIMATED GFR 104 mL/min (>=60)
[2023-07-01 23:01] LABS: INR 1.4 (0.9-1.2); PTT,PARTIAL THROMBOPLSTIN TIME 28.6 SEC (22.0-34.0)
[2023-07-01 23:02] LABS: CORONAVIRUS COVID-19 NAA NEGATIVE (NEGATIVE); INFLUENZA A NAA NEGATIVE (NEGATIVE); INFLUENZA B NAA NEGATIVE (NEGATIVE); RESPIRATORY SYNCYTIAL VIR NAA NEGATIVE (NEGATIVE)
[2023-07-01] MEDS ORDERED: Ibuprofen 400 MG Tab ONE (23:05)
[2023-07-01 23:09] LABS: HCG QUALITATIVE,SERUM NEGATIVE (NEGATIVE)
[2023-07-01] MEDS ORDERED: cefTRIAXone 2 GM Vial IVPUSH ONE (23:17)
[2023-07-01] MEDS ORDERED: Ibuprofen 400 MG Tab PO ONE (23:41)
[2023-07-01 23:45] LABS: APPEARANCE,URINE TURBID (CLEAR); BILIRUBIN,URINE NEGATIVE (NEGATIVE); COLOR,URINE YELLOW (YELLOW); GLUCOSE,URINE NEGATIVE (NEGATIVE); KETONES,URINE NEGATIVE (NEGATIVE); LEUKOCYTE ESTERASE,URINE MODERATE (NEGATIVE); NITRITE,URINE NEGATIVE (NEGATIVE); OCCULT BLOOD,URINE MODERATE (NEGATIVE); PROTEIN,URINE 30 (NEGATIVE); UROBILINOGEN,URINE 0.2 mg/dL (0.2-1.0)
[2023-07-01 23:47] LABS: AMPHETAMINES,URINE NEGATIVE (NEGATIVE); BARBITURATES,URINE NEGATIVE (NEGATIVE); BENZODIAZEPINE,URINE NEGATIVE (NEGATIVE); MDMA (ECSTASY), URINE NEGATIVE (NEGATIVE); METHADONE,URINE NEGATIVE (NEGATIVE); METHAMPHETAMINES,URINE NEGATIVE (NEGATIVE); OPIATES,URINE NEGATIVE (NEGATIVE); OXYCODONE,URINE NEGATIVE (NEGATIVE); PHENCYCLIDINE,URINE NEGATIVE (NEGATIVE); TCA,URINE NEGATIVE (NEGATIVE)
[2023-07-01 23:56] LABS: BACTERIA,URINE MODERATE /HPF (0-FEW/HPF); EPITHELIAL CELLS,URINE FEW /HPF (NOT SEEN); WBC,URINE >100 /HPF (0-5/HPF)
[2023-07-02] MEDS ORDERED: Sodium Chloride 0.9% 1,000 ML IV ONE (00:12)
[2023-07-02] MEDS ORDERED: Linezolid 600 MG in Premix Bag 1 BAG IV ONE (01:00)
[2023-07-02] MEDS ORDERED: Take Home: Phenazopyridine 95 MG Tab, 4 Tab Pack PO ONE (03:16)
[2023-07-02] MEDS ORDERED: Phenazopyridine 95 MG Tab ONE (03:27)
== END 2023-07-02 03:30 | disposition home or self-care (01) ==
LOC: DL.ED 22:02
DX: K70.30 Alcoholic cirrhosis of liver without ascites (principal); F10.920 Alcohol use, unspecified with intoxication, uncomplicated; N39.0 Urinary tract infection, site not specified; D64.9 Anemia, unspecified; Z16.21 Resistance to vancomycin; I10 Essential (primary) hypertension; Z88.5 Allergy status to narcotic agent; Z86.16 Personal history of COVID-19; Z88.8 Allergy status to other drugs, medicaments and biological substances; Z79.899 Other long term (current) drug therapy
CPT/HCPCS: 0241U; 36415; 80053; 80305; 80307; 81001; 83605; 83690; 84145; 84703; 85025; 85610; 85730; 86140; 87040; 87081; 87086; 87088; 87186; 87430; 96365; 96367; 96375; 99284; 99285; A9270; C1758; J0696; J1580; J1953; J3490; J7030

== ENCOUNTER 2023-07-06 08:19 | Emergency (ER) | payer MEDICAID ==
[2023-07-06 09:29] LABS: APPEARANCE,URINE SLIGHTLY CLOUDY (CLEAR); BILIRUBIN,URINE NEGATIVE (NEGATIVE); COLOR,URINE YELLOW (YELLOW); GLUCOSE,URINE NEGATIVE (NEGATIVE); KETONES,URINE NEGATIVE (NEGATIVE); LEUKOCYTE ESTERASE,URINE MODERATE (NEGATIVE); NITRITE,URINE NEGATIVE (NEGATIVE); OCCULT BLOOD,URINE MODERATE (NEGATIVE); PROTEIN,URINE 30 (NEGATIVE); UROBILINOGEN,URINE 0.2 mg/dL (0.2-1.0)
[2023-07-06 09:31] LABS: AMPHETAMINES,URINE NEGATIVE (NEGATIVE); BARBITURATES,URINE NEGATIVE (NEGATIVE); BENZODIAZEPINE,URINE NEGATIVE (NEGATIVE); MDMA (ECSTASY), URINE NEGATIVE (NEGATIVE); METHADONE,URINE NEGATIVE (NEGATIVE); METHAMPHETAMINES,URINE NEGATIVE (NEGATIVE); OPIATES,URINE NEGATIVE (NEGATIVE); OXYCODONE,URINE NEGATIVE (NEGATIVE); PHENCYCLIDINE,URINE NEGATIVE (NEGATIVE); TCA,URINE NEGATIVE (NEGATIVE)
[2023-07-06 09:45] LABS: BACTERIA,URINE MODERATE /HPF (0-FEW/HPF); EPITHELIAL CELLS,URINE FEW /HPF (NOT SEEN); RBC,URINE 40-50 /HPF (0-5); WBC,URINE >100 /HPF (0-5/HPF)
[2023-07-06 09:46] LABS: MUCUS,URINE MANY /LPF (NOT SEEN)
[2023-07-06 10:03] LABS: BASOPHILS PERCENT AUTO 1.1 % (0.0-1.0); EOSINOPHILS PERCENT AUTO 1.6 % (1.0-3.0); HEMATOCRIT 31.3 % (37.0-47.0); HEMOGLOBIN 10.2 g/dL (12.0-16.0); LYMPHOCYTES PERCENT AUTO 29.6 % (20.5-50.1); MEAN CORPUSCULAR HEMOGLOBIN 30.6 pg (27.0-34.0); MEAN CORPUSCULAR HGB CONC 32.6 g/dL (33.0-35.0); MONOCYTES PERCENT AUTO 11.1 % (2-8); NEUTROPHILS PERCENT AUTO 56.6 % (42.2-75.2); PLATELET COUNT,PLT 98 10^3/uL (150-450); RED BLOOD CELL COUNT 3.33 10^6/uL (4.2-5.4); WHITE BLOOD CELL COUNT,WBC 3.8 10^3/uL (5.0-10.0)
[2023-07-06 10:13] LABS: A/G RATIO 0.44; ALBUMIN 2.4 g/dL (3.4-5.0); ANION GAP 16.5 mEq/L (7-13); BILIRUBIN TOTAL 2.5 mg/dL (0.2-1.0); BUN/CREATININE RATIO 20.8 (No establ ref range); CALCIUM 7.8 mg/dL (8.5-10.1); CREATININE 0.72 mg/dL (0.55-1.02); EST CRCL DRUG DOSING (CG) 72.89 mL/min; POTASSIUM,K 3.5 mmol/L (3.5-5.1); PROTEIN TOTAL,TP 7.8 g/dL (6.4-8.2)
== END 2023-07-06 12:28 | disposition home or self-care (01) ==
LOC: DL.ED 08:19
DX: N39.0 Urinary tract infection, site not specified (principal); I10 Essential (primary) hypertension; Z86.73 Personal history of transient ischemic attack (TIA), and cerebral infarction without residual deficits; Z86.16 Personal history of COVID-19; Z90.49 Acquired absence of other specified parts of digestive tract; Z79.899 Other long term (current) drug therapy; Z88.8 Allergy status to other drugs, medicaments and biological substances; Z88.5 Allergy status to narcotic agent; Z88.6 Allergy status to analgesic agent
CPT/HCPCS: 36415; 80053; 80305-QW; 81001; 85025; 87086; 93010; 99284

== ENCOUNTER 2023-10-05 11:10 | Emergency (ER) | payer MEDICAID ==
[2023-10-05] MEDS: Succinylcholine 200 MG/10 ML MDV IV ONE (11:17)
[2023-10-05] MEDS: Midazolam 1 MG/ML 2 ML SDV IVPUSH ONE (11:17)
[2023-10-05] MEDS ORDERED: Sodium Chloride 0.9% 10 ML Syringe FLUSH PRN (11:25)
[2023-10-05] MEDS: Norepinephrine Bit/D5W Premix 250 ML IV SCH (11:32)
[2023-10-05 11:44] LABS: BASOPHILS PERCENT AUTO 0.2 % (0.0-1.0); EOSINOPHILS PERCENT AUTO 0.3 % (1.0-3.0); LYMPHOCYTES PERCENT AUTO 16.2 % (20.5-50.1); MEAN CORPUSCULAR HEMOGLOBIN 30.4 pg (27.0-34.0); MEAN CORPUSCULAR HGB CONC 31.6 g/dL (33.0-35.0); MEAN CORPUSCULAR VOLUME 96.3 fL (80-100); MONOCYTES PERCENT AUTO 10.6 % (2-8); NEUTROPHILS PERCENT AUTO 72.7 % (42.2-75.2); PLATELET COUNT,PLT 114 10^3/uL (150-450); RED BLOOD CELL COUNT 1.61 10^6/uL (4.2-5.4); WHITE BLOOD CELL COUNT,WBC 5.7 10^3/uL (5.0-10.0)
[2023-10-05 11:50] LABS: HEMATOCRIT 15.5 % (37.0-47.0); HEMOGLOBIN 4.9 g/dL (12.0-16.0)
[2023-10-05 12:01] LABS: ALANINE AMINOTRANSFERASE,ALT 39 U/L (14-59); ALBUMIN 1.7 g/dL (3.4-5.0); ALKALINE PHOSPHATASE 153 U/L (46-116); ANION GAP 26.9 mEq/L (7-13); ASPARTATE AMNIOTRANSFERASE,AST 82 U/L (15-37); BILIRUBIN TOTAL 7.6 mg/dL (0.2-1.0); BLOOD UREA NITROGEN,BUN 100 mg/dL (7-18); BUN/CREATININE RATIO 26.2 (No establ ref range); CALCIUM 7.3 mg/dL (8.5-10.1); CARBON DIOXIDE,CO2 11 mmol/L (21-32); CHLORIDE,CL 103 mmol/L (98-107); CREATININE 3.81 mg/dL (0.55-1.02); GLUCOSE RANDOM 89 mg/dL (70-99); POTASSIUM,K 3.9 mmol/L (3.5-5.1); PROTEIN TOTAL,TP 5.9 g/dL (6.4-8.2); SODIUM,NA 137 mmol/L (136-145)
[2023-10-05 12:06] LABS: ESTIMATED GFR 14 mL/min (>=60)
[2023-10-05 12:41] LABS: BASE EXCESS ARTERIAL -15 mmol/L ((-2)-(+3)); BICARBONATE,ARTERIAL 11.7 mmol/L (22-26); O2 DELIVERY DEVICE VENTILATOR; O2 SATURATION ARTERIAL 100 % (95-100); PCO2 ARTERIAL 33 mmHg (35-45); PO2 ARTERIAL 359 mmHg (70-100)
[2023-10-05 12:42] LABS: INR 1.9 (0.9-1.2); PROTHROMBIN TIME 19.1 SEC (9.0-12.0)
[2023-10-05 12:42] LABS: ALLEN TEST PERFORMED; PH,ARTERIAL 7.18 (7.35-7.45)
[2023-10-05 12:48] LABS: APPEARANCE,URINE TURBID (CLEAR); BILIRUBIN,URINE LARGE (NEGATIVE); COLOR,URINE AMBER (YELLOW); GLUCOSE,URINE NEGATIVE (NEGATIVE); KETONES,URINE TRACE (NEGATIVE); LEUKOCYTE ESTERASE,URINE LARGE (NEGATIVE); NITRITE,URINE NEGATIVE (NEGATIVE); OCCULT BLOOD,URINE LARGE (NEGATIVE); PH,URINE 5.5 (5.0-9.0); PROTEIN,URINE 100 (NEGATIVE)
[2023-10-05 12:56] LABS: AMPHETAMINES,URINE NEGATIVE (NEGATIVE); BARBITURATES,URINE NEGATIVE (NEGATIVE); BENZODIAZEPINE,URINE NEGATIVE (NEGATIVE); MDMA (ECSTASY), URINE NEGATIVE (NEGATIVE); METHADONE,URINE NEGATIVE (NEGATIVE); METHAMPHETAMINES,URINE NEGATIVE (NEGATIVE); OPIATES,URINE NEGATIVE (NEGATIVE); OXYCODONE,URINE NEGATIVE (NEGATIVE); PHENCYCLIDINE,URINE NEGATIVE (NEGATIVE); TCA,URINE NEGATIVE (NEGATIVE)
[2023-10-05 13:27] LABS: WBC,URINE >100 /HPF (0-5/HPF)
[2023-10-05 13:28] LABS: BACTERIA,URINE MANY /HPF (0-FEW/HPF); EPITHELIAL CELLS,URINE FEW /HPF (NOT SEEN); MUCUS,URINE MANY /LPF (NOT SEEN)
[2023-10-05] MEDS: Sodium Chloride 0.9% 1,000 ML IV ONE (15:07)
[2023-10-05] MEDS: Etomidate 2 MG/ML 10 ML SDV IVPUSH ONE (15:07)
== END 2023-10-05 14:12 ==
LOC: DL.ED 11:10
DX: R40.0 Somnolence (principal); I10 Essential (primary) hypertension; Z88.1 Allergy status to other antibiotic agents; Z88.5 Allergy status to narcotic agent; Z88.8 Allergy status to other drugs, medicaments and biological substances; Z86.16 Personal history of COVID-19
CPT/HCPCS: 31500; 36415; 36430; 36600; 70450; 71045; 72125; 80053; 80305; 80307; 81001; 82140; 82803; 83605; 83735; 84484; 85025; 85610; 86850; 86900; 86901; 86920; 86922; 87086; 87088; 87186; 96365; 96366; 99291; J0330; J2250; J3490; J7030; P9016

== ENCOUNTER 2023-10-29 12:41 | Inpatient (IN) | payer MEDICAID, OTHER ==
[2023-10-29] MEDS: LORazepam 2 MG/ML SDV IVPUSH ONE (12:20)
[2023-10-29] MEDS: Sodium Chloride 0.9% 10 ML Syringe FLUSH PRN (12:20)
[2023-10-29 12:41] LABS: BASOPHILS PERCENT AUTO 0.4 % (0.0-1.0); EOSINOPHILS PERCENT AUTO 1.4 % (1.0-3.0); HEMATOCRIT 26.2 % (37.0-47.0); HEMOGLOBIN 8.4 g/dL (12.0-16.0); LYMPHOCYTES PERCENT AUTO 33.1 % (20.5-50.1); MEAN CORPUSCULAR HEMOGLOBIN 32.1 pg (27.0-34.0); MEAN CORPUSCULAR HGB CONC 32.1 g/dL (33.0-35.0); MONOCYTES PERCENT AUTO 19.6 % (2-8); NEUTROPHILS PERCENT AUTO 45.5 % (42.2-75.2); PLATELET COUNT,PLT 120 10^3/uL (150-450); RED BLOOD CELL COUNT 2.62 10^6/uL (4.2-5.4); WHITE BLOOD CELL COUNT,WBC 5.1 10^3/uL (5.0-10.0)
[2023-10-29 12:57] LABS: INR 1.7 (0.9-1.2); PROTHROMBIN TIME 17.5 SEC (9.0-12.0)
[2023-10-29 13:02] LABS: A/G RATIO 0.51; ALANINE AMINOTRANSFERASE,ALT 23 U/L (14-59); ALBUMIN 2.5 g/dL (3.4-5.0); ALKALINE PHOSPHATASE 187 U/L (46-116); ANION GAP 15.1 mEq/L (7-13); ASPARTATE AMNIOTRANSFERASE,AST 44 U/L (15-37); BILIRUBIN TOTAL 6.2 mg/dL (0.2-1.0); BLOOD UREA NITROGEN,BUN 16 mg/dL (7-18); BUN/CREATININE RATIO 14.3 (No establ ref range); CALCIUM 7.7 mg/dL (8.5-10.1); CARBON DIOXIDE,CO2 21 mmol/L (21-32); CHLORIDE,CL 108 mmol/L (98-107); CREATININE 1.12 mg/dL (0.55-1.02); EST CRCL DRUG DOSING (CG) 58.13 mL/min; GLUCOSE RANDOM 100 mg/dL (70-99); MAGNESIUM 1.7 mg/dL (1.8-2.4); POTASSIUM,K 4.1 mmol/L (3.5-5.1); PROTEIN TOTAL,TP 7.4 g/dL (6.4-8.2); SODIUM,NA 140 mmol/L (136-145)
[2023-10-29 13:05] LABS: ESTIMATED GFR 61 mL/min (>=60); ETHANOL BLOOD MEDICAL < 3 mg/dL (0)
[2023-10-29 13:07] LABS: LACTIC ACID 3.5 mmol/L (0.4-2.0)
[2023-10-29 13:09] LABS: HCG QUALITATIVE,SERUM NEGATIVE (NEGATIVE)
[2023-10-29 13:20] LABS: AMPHETAMINES,URINE POSITIVE (NEGATIVE); BARBITURATES,URINE NEGATIVE (NEGATIVE); BENZODIAZEPINE,URINE NEGATIVE (NEGATIVE); MDMA (ECSTASY), URINE NEGATIVE (NEGATIVE); METHADONE,URINE NEGATIVE (NEGATIVE); METHAMPHETAMINES,URINE NEGATIVE (NEGATIVE); OPIATES,URINE NEGATIVE (NEGATIVE); OXYCODONE,URINE NEGATIVE (NEGATIVE); PHENCYCLIDINE,URINE NEGATIVE (NEGATIVE); TCA,URINE NEGATIVE (NEGATIVE)
[2023-10-29] MEDS: Lactulose Soln 10 GM/15 ML 30 ML UD Cup ONE (13:22)
[2023-10-29 13:23] LABS: APPEARANCE,URINE CLOUDY (CLEAR); BILIRUBIN,URINE LARGE (NEGATIVE); COLOR,URINE BROWN (YELLOW); GLUCOSE,URINE 100 (NEGATIVE); KETONES,URINE TRACE (NEGATIVE); LEUKOCYTE ESTERASE,URINE LARGE (NEGATIVE); NITRITE,URINE NEGATIVE (NEGATIVE); OCCULT BLOOD,URINE LARGE (NEGATIVE); PROTEIN,URINE >=300 (NEGATIVE); UROBILINOGEN,URINE >=8.0 mg/dL (0.2-1.0)
[2023-10-29] MEDS: Lactulose Soln 10 GM/15 ML 946 ML Bottle RECTAL ONE (13:30)
[2023-10-29 13:35] LABS: BACTERIA,URINE RARE /HPF (0-FEW/HPF); EPITHELIAL CELLS,URINE NOT SEEN /HPF (NOT SEEN); MUCUS,URINE MODERATE /LPF (NOT SEEN); RBC,URINE PACKED /HPF (0-5); WBC,URINE 50-75 /HPF (0-5/HPF)
[2023-10-29] MEDS: cefTRIAXone 2 GM Vial IVPUSH ONE (13:41)
[2023-10-29] MEDS ORDERED: Ibuprofen 600 MG Tab PO PRN (14:19)
[2023-10-29] MEDS ORDERED: Ondansetron 4 MG/2 ML SDV IVPUSH PRN (14:20)
[2023-10-29] MEDS ORDERED: Acetaminophen/HYDROcodone 325-5 MG Tab PO PRN (14:20)
[2023-10-29] MEDS ORDERED: Albuterol/Ipratropium 3.0-0.5 MG/3 ML Neb Soln NEB PRN (14:20)
[2023-10-29] MEDS ORDERED: Naloxone 2 MG/2 ML Syringe IVPUSH PRN (14:20)
[2023-10-29] MEDS: Lactulose Soln 10 GM/15 ML 30 ML UD Cup PO SCH (14:29)
[2023-10-29] MEDS ORDERED: hydrALAZINE 20 MG/ML SDV IVPUSH PRN (14:30)
[2023-10-29] MEDS ORDERED: Metoprolol Tartrate 5 MG/5 ML SDV IVPUSH PRN (14:30)
[2023-10-29] MEDS ORDERED: Flumazenil 0.1 MG/ML 5 ML MDV IVPUSH PRN (14:30)
[2023-10-29] MEDS: Pantoprazole 40 MG Vial IVPUSH ONE (15:06)
[2023-10-29] MEDS: Phytonadione 10 MG in Sodium Chloride 0.9% 50 ML IV ONE (15:07)
[2023-10-29] MEDS: Magnesium Sulfate/Water 2 GM in Premix Bag 1 BAG IV ONE (16:03)
[2023-10-29] MEDS: Thiamine 100 MG in Sodium Chloride 0.9% 100 ML IV ONE (16:04)
[2023-10-29] MEDS: MVI, Adult with Vitamin K 10 ML, Folic Acid 1 MG, Thiamine 100 MG in Lactated Ringers 1... IV ONE (18:00)
[2023-10-29] MEDS: MVI, Adult with Vitamin K 10 ML, Folic Acid 1 MG, Thiamine 200 MG in Lactated Ringers 1... IV ONE (18:01)
[2023-10-29] MEDS: LORazepam 2 MG/ML SDV IVPUSH PRN (19:35)
[2023-10-30] MEDS: Magnesium Oxide 400 MG Tab PO SCH (03:58)
[2023-10-30] MEDS: Folic Acid 1 MG Tab PO SCH (03:58)
[2023-10-30] MEDS: Rifaximin 550 MG Tab PO SCH (03:58)
[2023-10-30] MEDS: Potassium Chloride 10 MEQ Tab.ER PO SCH (03:58)
[2023-10-30 06:34] LABS: HEMATOCRIT 23.1 % (37.0-47.0); HEMOGLOBIN 7.3 g/dL (12.0-16.0); MEAN CORPUSCULAR HEMOGLOBIN 31.9 pg (27.0-34.0); MEAN CORPUSCULAR HGB CONC 31.6 g/dL (33.0-35.0); MEAN CORPUSCULAR VOLUME 100.9 fL (80-100); PLATELET COUNT,PLT 101 10^3/uL (150-450); RED BLOOD CELL COUNT 2.29 10^6/uL (4.2-5.4); WHITE BLOOD CELL COUNT,WBC 3.8 10^3/uL (5.0-10.0)
[2023-10-30 06:47] LABS: BASOPHILS PERCENT AUTO 0.5 % (0.0-1.0); EOSINOPHILS PERCENT AUTO 2.9 % (1.0-3.0); LYMPHOCYTES PERCENT AUTO 34.7 % (20.5-50.1); MONOCYTES PERCENT AUTO 15.5 % (2-8); NEUTROPHILS PERCENT AUTO 46.4 % (42.2-75.2)
[2023-10-30 06:57] LABS: A/G RATIO 0.46; ALBUMIN 1.9 g/dL (3.4-5.0); ANION GAP 14.6 mEq/L (7-13); BILIRUBIN TOTAL 6.2 mg/dL (0.2-1.0); BUN/CREATININE RATIO 23.7 (No establ ref range); CALCIUM 7.1 mg/dL (8.5-10.1); CREATININE 0.76 mg/dL (0.55-1.02); EST CRCL DRUG DOSING (CG) 72.38 mL/min; MAGNESIUM 1.8 mg/dL (1.8-2.4); POTASSIUM,K 3.6 mmol/L (3.5-5.1)
[2023-10-30 07:14] LABS: INR 1.8 (0.9-1.2); PROTHROMBIN TIME 17.9 SEC (9.0-12.0); PTT,PARTIAL THROMBOPLSTIN TIME 33.6 SEC (22.0-34.0)
[2023-10-30 07:20] LABS: EOSINOPHILS PERCENT MAN 3 % (1-3); LYMPHOCYTES PERCENT MAN 33 % (20-50); MONOCYTES PERCENT MAN 8 % (2-8); SEG NEUTROPHILS PERCENT MAN 56 % (42-75)
[2023-10-30] MEDS: Pantoprazole 40 MG Tab.CR PO SCH (07:40)
[2023-10-30] MEDS: Saccharomyces Boulardii (Probiotic) 250 MG Cap PO SCH (08:43)
[2023-10-30] MEDS: cefTRIAXone 1 GM Vial IVPUSH SCH (08:46)
[2023-10-30] MEDS: Phytonadione 5 MG in Sodium Chloride 0.9% 50 ML IV SCH (08:50)
[2023-10-30] MEDS: Multivitamins with Iron/Calcium/Folic Acid/Minerals Tab PO SCH (20:52)
[2023-10-30] MEDS: Thiamine 100 MG Tab PO SCH (20:53)
[2023-10-30] MEDS: Ferrous Sulfate 325 MG Tab PO SCH (20:53)
[2023-10-30] MEDS: LORazepam 2 MG/ML SDV IVPUSH PRN (23:41)
[2023-10-31] MEDS: HYDROmorphone 0.5 MG/0.5 ML Syringe IVPUSH PRN (02:11)
[2023-10-31 06:45] LABS: BASOPHILS PERCENT AUTO 0.6 % (0.0-1.0); EOSINOPHILS PERCENT AUTO 4.8 % (1.0-3.0); HEMATOCRIT 23.6 % (37.0-47.0); HEMOGLOBIN 7.5 g/dL (12.0-16.0); LYMPHOCYTES PERCENT AUTO 38.7 % (20.5-50.1); MEAN CORPUSCULAR HEMOGLOBIN 32.8 pg (27.0-34.0); MEAN CORPUSCULAR HGB CONC 31.8 g/dL (33.0-35.0); MEAN CORPUSCULAR VOLUME 103.1 fL (80-100); MONOCYTES PERCENT AUTO 16.8 % (2-8); NEUTROPHILS PERCENT AUTO 39.1 % (42.2-75.2); PLATELET COUNT,PLT 115 10^3/uL (150-450); RED BLOOD CELL COUNT 2.29 10^6/uL (4.2-5.4)
[2023-10-31 07:16] LABS: INR 1.7 (0.9-1.2); PROTHROMBIN TIME 17.2 SEC (9.0-12.0); PTT,PARTIAL THROMBOPLSTIN TIME 31.6 SEC (22.0-34.0)
[2023-10-31 08:56] LABS: ALBUMIN 1.9 g/dL (3.4-5.0); ANION GAP 13.6 mEq/L (7-13); BILIRUBIN TOTAL 4.7 mg/dL (0.2-1.0); BUN/CREATININE RATIO 18.5 (No establ ref range); CREATININE 0.81 mg/dL (0.55-1.02); EST CRCL DRUG DOSING (CG) 67.91 mL/min; MAGNESIUM 1.6 mg/dL (1.8-2.4); POTASSIUM,K 3.6 mmol/L (3.5-5.1); PROTEIN TOTAL,TP 6.2 g/dL (6.4-8.2)
[2023-10-31 08:57] LABS: A/G RATIO 0.44
[2023-10-31] MEDS ORDERED: Ketorolac 30 MG/ML SDV IVPUSH PRN (09:10)
[2023-10-31] MEDS: Ziprasidone Mesylate 20 MG Vial IM PRN (21:13)
[2023-11-01 06:23] LABS: BASOPHILS PERCENT AUTO 0.5 % (0.0-1.0); EOSINOPHILS PERCENT AUTO 4.4 % (1.0-3.0); HEMATOCRIT 24.1 % (37.0-47.0); HEMOGLOBIN 7.5 g/dL (12.0-16.0); LYMPHOCYTES PERCENT AUTO 38.5 % (20.5-50.1); MEAN CORPUSCULAR HEMOGLOBIN 32.2 pg (27.0-34.0); MEAN CORPUSCULAR HGB CONC 31.1 g/dL (33.0-35.0); MEAN CORPUSCULAR VOLUME 103.4 fL (80-100); MONOCYTES PERCENT AUTO 16.5 % (2-8); NEUTROPHILS PERCENT AUTO 40.1 % (42.2-75.2); PLATELET COUNT,PLT 96 10^3/uL (150-450); RED BLOOD CELL COUNT 2.33 10^6/uL (4.2-5.4); WHITE BLOOD CELL COUNT,WBC 4.1 10^3/uL (5.0-10.0)
[2023-11-01 06:42] LABS: INR 1.7 (0.9-1.2); PROTHROMBIN TIME 17.3 SEC (9.0-12.0); PTT,PARTIAL THROMBOPLSTIN TIME 30.2 SEC (22.0-34.0)
[2023-11-01 06:54] LABS: A/G RATIO 0.41; ALBUMIN 1.8 g/dL (3.4-5.0); ANION GAP 13.5 mEq/L (7-13); BUN/CREATININE RATIO 14.7 (No establ ref range); CREATININE 0.68 mg/dL (0.55-1.02); EST CRCL DRUG DOSING (CG) 80.89 mL/min; MAGNESIUM 1.6 mg/dL (1.8-2.4); POTASSIUM,K 3.5 mmol/L (3.5-5.1); PROTEIN TOTAL,TP 6.2 g/dL (6.4-8.2)
[2023-11-02] MEDS: Acetaminophen 325 MG Tab PO PRN (03:06)
[2023-11-02 06:21] LABS: BASOPHILS PERCENT AUTO 0.6 % (0.0-1.0); EOSINOPHILS PERCENT AUTO 4.5 % (1.0-3.0); HEMATOCRIT 24.1 % (37.0-47.0); HEMOGLOBIN 7.6 g/dL (12.0-16.0); LYMPHOCYTES PERCENT AUTO 31.4 % (20.5-50.1); MEAN CORPUSCULAR HEMOGLOBIN 32.5 pg (27.0-34.0); MEAN CORPUSCULAR HGB CONC 31.5 g/dL (33.0-35.0); NEUTROPHILS PERCENT AUTO 45.5 % (42.2-75.2); PLATELET COUNT,PLT 94 10^3/uL (150-450); RED BLOOD CELL COUNT 2.34 10^6/uL (4.2-5.4); WHITE BLOOD CELL COUNT,WBC 6.4 10^3/uL (5.0-10.0)
[2023-11-02 06:43] LABS: A/G RATIO 0.43; ALBUMIN 1.8 g/dL (3.4-5.0); ANION GAP 8.9 mEq/L (7-13); BILIRUBIN TOTAL 3.7 mg/dL (0.2-1.0); BUN/CREATININE RATIO 13.9 (No establ ref range); CALCIUM 6.9 mg/dL (8.5-10.1); CREATININE 0.79 mg/dL (0.55-1.02); EST CRCL DRUG DOSING (CG) 69.63 mL/min; MAGNESIUM 1.6 mg/dL (1.8-2.4); POTASSIUM,K 3.9 mmol/L (3.5-5.1)
[2023-11-02 07:13] LABS: INR 1.9 (0.9-1.2); PROTHROMBIN TIME 18.8 SEC (9.0-12.0); PTT,PARTIAL THROMBOPLSTIN TIME 33.1 SEC (22.0-34.0)
[2023-11-03] MEDS: Melatonin 3 MG Tab PO PRN (01:36)
== END 2023-11-03 14:10 | disposition home or self-care (01) | DRG 92 ==
LOC: DL.ED 12:41 → DL.MS 13:34
PROVIDERS: ADMIT Internal Medicine; ATTEND Internal Medicine
DX: G92.8 Other toxic encephalopathy (principal); E46 Unspecified protein-calorie malnutrition; E87.20 Acidosis, unspecified; N17.9 Acute kidney failure, unspecified; Z88.6 Allergy status to analgesic agent; N39.0 Urinary tract infection, site not specified; E72.20 Disorder of urea cycle metabolism, unspecified; K76.82 Hepatic encephalopathy; H54.7 Unspecified visual loss; I10 Essential (primary) hypertension; G47.30 Sleep apnea, unspecified; M54.9 Dorsalgia, unspecified; G89.29 Other chronic pain; F41.9 Anxiety disorder, unspecified; F32.A Depression, unspecified; M16.0 Bilateral primary osteoarthritis of hip; G25.81 Restless legs syndrome; D50.9 Iron deficiency anemia, unspecified; D69.59 Other secondary thrombocytopenia; E87.8 Other disorders of electrolyte and fluid balance, not elsewhere classified; R73.9 Hyperglycemia, unspecified; E83.42 Hypomagnesemia; E80.6 Other disorders of bilirubin metabolism; E88.09 Other disorders of plasma-protein metabolism, not elsewhere classified; F15.90 Other stimulant use, unspecified, uncomplicated; S00.83XA Contusion of other part of head, initial encounter; S80.12XA Contusion of left lower leg, initial encounter; W19.XXXA Unspecified fall, initial encounter; F10.20 Alcohol dependence, uncomplicated; K72.10 Chronic hepatic failure without coma; Z88.5 Allergy status to narcotic agent; Z88.8 Allergy status to other drugs, medicaments and biological substances; Z79.899 Other long term (current) drug therapy; Z86.73 Personal history of transient ischemic attack (TIA), and cerebral infarction without residual deficits; Z86.16 Personal history of COVID-19; Z90.49 Acquired absence of other specified parts of digestive tract; Z87.891 Personal history of nicotine dependence; Z68.24 Body mass index [BMI] 24.0-24.9, adult
CPT/HCPCS: 36415; 70450; 80053; 80305; 80307; 81001; 82140; 83605; 83735; 84703; 85025; 85610; 87086; 96374; 99285 ×2; J2060; 85730; 97161-GP; 97165-GO; A9270-GY; C9113; J0696; J1170; J3411; J3430; J3475; J3486; J3490; J7120

== ENCOUNTER 2023-12-03 15:34 | Inpatient (IN) | payer MEDICAID ==
[2023-12-03 15:46] LABS: BASOPHILS PERCENT AUTO 0.3 % (0.0-1.0); HEMOGLOBIN 9.1 g/dL (12.0-16.0); LYMPHOCYTES PERCENT AUTO 17.6 % (20.5-50.1); MEAN CORPUSCULAR HEMOGLOBIN 33.5 pg (27.0-34.0); MEAN CORPUSCULAR HGB CONC 31.4 g/dL (33.0-35.0); MEAN CORPUSCULAR VOLUME 106.6 fL (80-100); MONOCYTES PERCENT AUTO 12.7 % (2-8); NEUTROPHILS PERCENT AUTO 69.4 % (42.2-75.2); PLATELET COUNT,PLT 109 10^3/uL (150-450); RED BLOOD CELL COUNT 2.72 10^6/uL (4.2-5.4); WHITE BLOOD CELL COUNT,WBC 6.6 10^3/uL (5.0-10.0)
[2023-12-03 16:00] LABS: INR 1.4 (0.9-1.2); PROTHROMBIN TIME 14.2 SEC (9.0-12.0)
[2023-12-03 16:07] LABS: ALBUMIN 1.8 g/dL (3.4-5.0); ANION GAP 20.9 mEq/L (7-13); BILIRUBIN TOTAL 2.7 mg/dL (0.2-1.0); BUN/CREATININE RATIO 13.8 (No establ ref range); CALCIUM 7.7 mg/dL (8.5-10.1); CREATININE 1.52 mg/dL (0.55-1.02); EST CRCL DRUG DOSING (CG) 34.53 mL/min; MAGNESIUM 1.6 mg/dL (1.8-2.4); POTASSIUM,K 3.9 mmol/L (3.5-5.1); PROTEIN TOTAL,TP 6.8 g/dL (6.4-8.2)
[2023-12-03 16:08] LABS: A/G RATIO 0.36
[2023-12-03] MEDS: Iopamidol 612 MG/ML 100 ML Bottle IVPUSH ONE (16:21)
[2023-12-03] MEDS: Magnesium Sulfate/Water 2 GM in Premix Bag 1 BAG IV ONE (17:22)
[2023-12-03] MEDS: Sodium Chloride 0.9% 1,000 ML IV ONE ×2 (17:22)
[2023-12-03] MEDS: Thiamine 100 MG in Sodium Chloride 0.9% 100 ML IV ONE (17:22)
[2023-12-03] MEDS: HYDROmorphone 1 MG/ML Syringe ONE (20:20)
[2023-12-03] MEDS ORDERED: PHENobarbital Sodium 65 MG/ML SDV IVPUSH PRN (20:38)
[2023-12-03] MEDS ORDERED: PHENobarbital 64.8 MG Tab PO PRN (20:38)
[2023-12-03] MEDS ORDERED: Ondansetron 4 MG/2 ML SDV IVPUSH PRN (20:38)
[2023-12-03] MEDS ORDERED: Midodrine 5 MG Tab PO PRN (20:42)
[2023-12-03] MEDS: Phytonadione 10 MG in Sodium Chloride 0.9% 50 ML IV ONE (20:45)
[2023-12-03] MEDS: PHENobarbitaL sodium 260 MG in Sodium Chloride 0.9% 100 ML IV ONE (20:45)
[2023-12-03] MEDS: MVI, Adult with Vitamin K 10 ML, Folic Acid 1 MG, Thiamine 100 MG in Lactated Ringers 1... IV ONE (20:45)
[2023-12-03] MEDS: Albumin Human 50 GM in Premix Bag 1 BAG IV ONE (20:50)
[2023-12-03] MEDS ORDERED: Melatonin 3 MG Tab PO PRN (20:56)
[2023-12-03] MEDS ORDERED: Albuterol/Ipratropium 3.0-0.5 MG/3 ML Neb Soln NEB PRN (20:56)
[2023-12-03] MEDS ORDERED: oxyCODONE 5 MG Tab PO PRN (20:56)
[2023-12-03] MEDS: Rifaximin 550 MG Tab PO SCH (21:00)
[2023-12-03] MEDS: Phytonadione 5 MG Tab PO SCH (21:00)
[2023-12-03] MEDS: oxyCODONE ER 20 MG TAB.ER PO SCH (21:00)
[2023-12-03] MEDS: Pantoprazole 40 MG Vial IVPUSH ONE (21:00)
[2023-12-03] MEDS: SODIUM CHLORIDE 0.9% IV ONE (21:15)
[2023-12-03] MEDS: PHENOBARBITAL SODIUM IV ONE (21:15)
[2023-12-04] MEDS: Pantoprazole 40 MG Tab.CR PO SCH (06:04)
[2023-12-04 06:38] LABS: BASOPHILS PERCENT AUTO 0.2 % (0.0-1.0); LYMPHOCYTES PERCENT AUTO 40.4 % (20.5-50.1); MEAN CORPUSCULAR HEMOGLOBIN 34.5 pg (27.0-34.0); MEAN CORPUSCULAR HGB CONC 32.9 g/dL (33.0-35.0); MONOCYTES PERCENT AUTO 17.5 % (2-8); NEUTROPHILS PERCENT AUTO 39.9 % (42.2-75.2); PLATELET COUNT,PLT 55 10^3/uL (150-450); WHITE BLOOD CELL COUNT,WBC 5.4 10^3/uL (5.0-10.0)
[2023-12-04 06:56] LABS: MAGNESIUM 2.4 mg/dL (1.8-2.4)
[2023-12-04 07:02] LABS: HEMOGLOBIN 6.9 g/dL (12.0-16.0)
[2023-12-04] MEDS: Folic Acid 1 MG Tab PO SCH (08:30)
[2023-12-04] MEDS: Multivitamin Tab PO SCH (08:31)
[2023-12-04] MEDS: Thiamine 100 MG Tab PO SCH (08:33)
[2023-12-04] MEDS ORDERED: Lactulose Soln 10 GM/15 ML 30 ML UD Cup PO SCH (09:00)
[2023-12-04] MEDS: Lactulose Soln 10 GM/15 ML 30 ML UD Cup PO SCH (09:41)
[2023-12-04] MEDS: Albumin Human 25 GM in Premix Bag 1 BAG IV SCH (09:52)
[2023-12-04 12:05] LABS: HEMATOCRIT 19.8 % (37.0-47.0); HEMOGLOBIN 6.5 g/dL (12.0-16.0)
[2023-12-04] MEDS: Naloxone 2 MG/2 ML Syringe IVPUSH PRN (12:45)
[2023-12-04 13:58] LABS: APPEARANCE,URINE CLEAR (CLEAR); BILIRUBIN,URINE NEGATIVE (NEGATIVE); COLOR,URINE DARK YELLOW (YELLOW); GLUCOSE,URINE NEGATIVE (NEGATIVE); KETONES,URINE NEGATIVE (NEGATIVE); LEUKOCYTE ESTERASE,URINE SMALL (NEGATIVE); NITRITE,URINE NEGATIVE (NEGATIVE); OCCULT BLOOD,URINE MODERATE (NEGATIVE); PROTEIN,URINE NEGATIVE (NEGATIVE)
[2023-12-04 14:03] LABS: AMPHETAMINES,URINE NEGATIVE (NEGATIVE); BARBITURATES,URINE POSITIVE (NEGATIVE); BENZODIAZEPINE,URINE NEGATIVE (NEGATIVE); MDMA (ECSTASY), URINE NEGATIVE (NEGATIVE); METHADONE,URINE NEGATIVE (NEGATIVE); METHAMPHETAMINES,URINE POSITIVE (NEGATIVE); OPIATES,URINE POSITIVE (NEGATIVE); OXYCODONE,URINE POSITIVE (NEGATIVE); PHENCYCLIDINE,URINE NEGATIVE (NEGATIVE); TCA,URINE NEGATIVE (NEGATIVE)
[2023-12-04 14:14] LABS: BACTERIA,URINE FEW /HPF (0-FEW/HPF); EPITHELIAL CELLS,URINE MODERATE /HPF (NOT SEEN)
[2023-12-04] MEDS: Metoprolol Tartrate 5 MG/5 ML SDV IVPUSH PRN (16:28)
[2023-12-04] MEDS: oxyCODONE 5 MG Tab PO PRN (19:56)
[2023-12-04] MEDS: HYDROmorphone 0.5 MG/0.5 ML Syringe IVPUSH PRN (22:27)
[2023-12-05 06:35] LABS: BASOPHILS PERCENT AUTO 0.3 % (0.0-1.0); EOSINOPHILS PERCENT AUTO 0.9 % (1.0-3.0); HEMATOCRIT 24.2 % (37.0-47.0); HEMOGLOBIN 7.9 g/dL (12.0-16.0); LYMPHOCYTES PERCENT AUTO 29.1 % (20.5-50.1); MEAN CORPUSCULAR HEMOGLOBIN 33.3 pg (27.0-34.0); MEAN CORPUSCULAR HGB CONC 32.6 g/dL (33.0-35.0); MEAN CORPUSCULAR VOLUME 102.1 fL (80-100); MONOCYTES PERCENT AUTO 15.8 % (2-8); NEUTROPHILS PERCENT AUTO 53.9 % (42.2-75.2); PLATELET COUNT,PLT 54 10^3/uL (150-450); RED BLOOD CELL COUNT 2.37 10^6/uL (4.2-5.4); WHITE BLOOD CELL COUNT,WBC 6.6 10^3/uL (5.0-10.0)
[2023-12-05 06:53] LABS: A/G RATIO 1.3; ALBUMIN 3.8 g/dL (3.4-5.0); ANION GAP 15.7 mEq/L (7-13); BILIRUBIN TOTAL 3.5 mg/dL (0.2-1.0); BUN/CREATININE RATIO 24.5 (No establ ref range); CREATININE 0.98 mg/dL (0.55-1.02); EST CRCL DRUG DOSING (CG) 53.55 mL/min; POTASSIUM,K 3.7 mmol/L (3.5-5.1); PROTEIN TOTAL,TP 6.7 g/dL (6.4-8.2)
[2023-12-05 06:57] LABS: INR 1.7 (0.9-1.2); PROTHROMBIN TIME 16.8 SEC (9.0-12.0)
[2023-12-05] MEDS: Lactated Ringers 1,000 ML IV SCH (08:45)
[2023-12-05] MEDS: Ibuprofen 600 MG Tab PO PRN (10:27)
[2023-12-05] MEDS ORDERED: Acetaminophen/HYDROcodone 325-5 MG Tab PO PRN (10:57)
[2023-12-05] MEDS ORDERED: Acetaminophen/oxyCODONE 325-5 MG Tab PO PRN (10:57)
[2023-12-05] MEDS: Pantoprazole 40 MG Vial IVPUSH ONE (11:42)
[2023-12-05] MEDS: Pantoprazole 40 MG Vial IVPUSH SCH (20:52)
[2023-12-05] MEDS: Ketorolac 30 MG/ML SDV IVPUSH PRN (20:56)
[2023-12-05] MEDS: PHENobarbitaL sodium 260 MG in Sodium Chloride 0.9% 100 ML IV PRN (22:06)
[2023-12-06 06:25] LABS: BASOPHILS PERCENT AUTO 0.6 % (0.0-1.0); EOSINOPHILS PERCENT AUTO 3.2 % (1.0-3.0); HEMATOCRIT 22.8 % (37.0-47.0); HEMOGLOBIN 7.4 g/dL (12.0-16.0); LYMPHOCYTES PERCENT AUTO 26.4 % (20.5-50.1); MEAN CORPUSCULAR HEMOGLOBIN 33.5 pg (27.0-34.0); MEAN CORPUSCULAR HGB CONC 32.5 g/dL (33.0-35.0); MEAN CORPUSCULAR VOLUME 103.2 fL (80-100); MONOCYTES PERCENT AUTO 12.2 % (2-8); NEUTROPHILS PERCENT AUTO 57.6 % (42.2-75.2); PLATELET COUNT,PLT 59 10^3/uL (150-450); RED BLOOD CELL COUNT 2.21 10^6/uL (4.2-5.4); WHITE BLOOD CELL COUNT,WBC 5.3 10^3/uL (5.0-10.0)
[2023-12-06 06:44] LABS: ALBUMIN 3.3 g/dL (3.4-5.0); ANION GAP 14.2 mEq/L (7-13); BILIRUBIN TOTAL 4.8 mg/dL (0.2-1.0); BUN/CREATININE RATIO 29.3 (No establ ref range); CALCIUM 8.6 mg/dL (8.5-10.1); CREATININE 0.75 mg/dL (0.55-1.02); EST CRCL DRUG DOSING (CG) 69.97 mL/min; MAGNESIUM 1.6 mg/dL (1.8-2.4); POTASSIUM,K 3.2 mmol/L (3.5-5.1); PROTEIN TOTAL,TP 5.7 g/dL (6.4-8.2)
[2023-12-06 06:47] LABS: A/G RATIO 1.38
[2023-12-06] MEDS: Magnesium Sulfate/Water 2 GM in Premix Bag 1 BAG IV ONE (09:39)
[2023-12-06] MEDS: Furosemide 20 MG/2 ML VIAL IVPUSH ONE (09:39)
[2023-12-06] MEDS: Modafinil 100 MG Tab PO STA (09:47)
[2023-12-06] MEDS: Potassium Chloride 10 MEQ Tab.ER PO ONE (12:26)
[2023-12-06] MEDS: Acetaminophen/HYDROcodone 325-5 MG Tab PO PRN (12:33)
[2023-12-06] MEDS: Dextrose 5%-0.9% NaCl 1,000 ML IV SCH (15:55)
[2023-12-06] MEDS: HYDROmorphone 0.5 MG/0.5 ML Syringe IVPUSH PRN (20:30)
[2023-12-07 06:37] LABS: BASOPHILS PERCENT AUTO 0.7 % (0.0-1.0); EOSINOPHILS PERCENT AUTO 4.6 % (1.0-3.0); HEMATOCRIT 24.4 % (37.0-47.0); HEMOGLOBIN 7.9 g/dL (12.0-16.0); LYMPHOCYTES PERCENT AUTO 36.3 % (20.5-50.1); MEAN CORPUSCULAR HEMOGLOBIN 33.5 pg (27.0-34.0); MEAN CORPUSCULAR HGB CONC 32.4 g/dL (33.0-35.0); MEAN CORPUSCULAR VOLUME 103.4 fL (80-100); MONOCYTES PERCENT AUTO 16.1 % (2-8); NEUTROPHILS PERCENT AUTO 42.3 % (42.2-75.2); PLATELET COUNT,PLT 68 10^3/uL (150-450); RED BLOOD CELL COUNT 2.36 10^6/uL (4.2-5.4); WHITE BLOOD CELL COUNT,WBC 4.1 10^3/uL (5.0-10.0)
[2023-12-07 06:55] LABS: A/G RATIO 1.11; ANION GAP 10.4 mEq/L (7-13); BILIRUBIN TOTAL 4.2 mg/dL (0.2-1.0); BUN/CREATININE RATIO 32.1 (No establ ref range); CALCIUM 8.2 mg/dL (8.5-10.1); CREATININE 0.78 mg/dL (0.55-1.02); EST CRCL DRUG DOSING (CG) 67.28 mL/min; MAGNESIUM 1.7 mg/dL (1.8-2.4); POTASSIUM,K 3.4 mmol/L (3.5-5.1); PROTEIN TOTAL,TP 5.7 g/dL (6.4-8.2)
[2023-12-08 06:48] LABS: A/G RATIO 0.97; ALBUMIN 2.9 g/dL (3.4-5.0); ANION GAP 10.5 mEq/L (7-13); BILIRUBIN TOTAL 4.5 mg/dL (0.2-1.0); BUN/CREATININE RATIO 31.7 (No establ ref range); CALCIUM 8.2 mg/dL (8.5-10.1); CREATININE 0.82 mg/dL (0.55-1.02); POTASSIUM,K 3.5 mmol/L (3.5-5.1); PROTEIN TOTAL,TP 5.9 g/dL (6.4-8.2)
[2023-12-08] MEDS: cefTRIAXone 1 GM Vial IVPUSH SCH (13:22)
[2023-12-10] MEDS: Sodium Chloride 0.9% 10 ML Syringe FLUSH PRN (03:48)
== END 2023-12-11 15:00 | DRG 896 ==
LOC: DL.ED 15:34 → DL.MS 17:34
PROVIDERS: ADMIT Internal Medicine; ATTEND Internal Medicine
DX: F10.129 Alcohol abuse with intoxication, unspecified (principal); E43 Unspecified severe protein-calorie malnutrition; G93.41 Metabolic encephalopathy; N17.9 Acute kidney failure, unspecified; S42.301A Unspecified fracture of shaft of humerus, right arm, initial encounter for closed fracture; N39.0 Urinary tract infection, site not specified; D68.9 Coagulation defect, unspecified; E87.20 Acidosis, unspecified; T79.6XXA Traumatic ischemia of muscle, initial encounter; D50.9 Iron deficiency anemia, unspecified; G89.29 Other chronic pain; M54.9 Dorsalgia, unspecified; I10 Essential (primary) hypertension; F41.9 Anxiety disorder, unspecified; R00.0 Tachycardia, unspecified; K70.30 Alcoholic cirrhosis of liver without ascites; K76.82 Hepatic encephalopathy; I95.9 Hypotension, unspecified; D69.6 Thrombocytopenia, unspecified; R73.9 Hyperglycemia, unspecified; E83.42 Hypomagnesemia; R74.01 Elevation of levels of liver transaminase levels; S00.11XA Contusion of right eyelid and periocular area, initial encounter; F15.90 Other stimulant use, unspecified, uncomplicated; S00.93XA Contusion of unspecified part of head, initial encounter; R53.81 Other malaise; F32.A Depression, unspecified; G25.81 Restless legs syndrome; Z87.891 Personal history of nicotine dependence; Z86.73 Personal history of transient ischemic attack (TIA), and cerebral infarction without residual deficits; Z88.6 Allergy status to analgesic agent; Z68.27 Body mass index [BMI] 27.0-27.9, adult; Z91.148 Patient's other noncompliance with medication regimen for other reason; Z88.8 Allergy status to other drugs, medicaments and biological substances; Z86.16 Personal history of COVID-19; Z90.49 Acquired absence of other specified parts of digestive tract; W10.9XXA Fall (on) (from) unspecified stairs and steps, initial encounter; Y92.009 Unspecified place in unspecified non-institutional (private) residence as the place of occurrence of the external cause; Y90.6 Blood alcohol level of 120-199 mg/100 ml
CPT/HCPCS: 36415; 36430; 70450; 70486; 71045; 71260; 72125; 73060-RT; 74177; 80053; 80305-QW; 80307; 81001; 82140; 82550; 82947; 83735; 84484; 85014; 85018; 85025; 85610; 86850; 86900; 86901; 86920; 86922; 87086; 87088; 87186; 93005; 93010; 96374; 96375; 97161-GP; 97165-GO; 97530-GO; 97530-GP; 99284; 99285-25; A9270-GY; C9113; J0696; J1170; J1885; J1940; J2310; J2560; J3411; J3430; J3475; J3490; J7030; J7042; J7120; P9016; P9047; Q9967

== ENCOUNTER 2024-01-03 21:45 | Inpatient (IN) | payer MEDICAID ==
[2024-01-03 23:50] LABS: BASOPHILS PERCENT AUTO 0.4 % (0.0-1.0); EOSINOPHILS PERCENT AUTO 5.4 % (1.0-3.0); HEMATOCRIT 32.5 % (37.0-47.0); HEMOGLOBIN 11.2 g/dL (12.0-16.0); LYMPHOCYTES PERCENT AUTO 45.8 % (20.5-50.1); MEAN CORPUSCULAR HEMOGLOBIN 33.9 pg (27.0-34.0); MEAN CORPUSCULAR HGB CONC 34.5 g/dL (33.0-35.0); MEAN CORPUSCULAR VOLUME 98.5 fL (80-100); MONOCYTES PERCENT AUTO 14.5 % (2-8); NEUTROPHILS PERCENT AUTO 33.9 % (42.2-75.2); PLATELET COUNT,PLT 88 10^3/uL (150-450); WHITE BLOOD CELL COUNT,WBC 5.2 10^3/uL (5.0-10.0)
[2024-01-04] MEDS: Sodium Chloride 0.9% 10 ML Syringe FLUSH PRN
[2024-01-04 00:16] LABS: ALANINE AMINOTRANSFERASE,ALT 29 U/L (14-59); ALBUMIN 2.9 g/dL (3.4-5.0); ALKALINE PHOSPHATASE 171 U/L (46-116); ANION GAP 14.7 mEq/L (7-13); ASPARTATE AMNIOTRANSFERASE,AST 37 U/L (15-37); BILIRUBIN TOTAL 3.1 mg/dL (0.2-1.0); BLOOD UREA NITROGEN,BUN 26 mg/dL (7-18); BUN/CREATININE RATIO 32.1 (No establ ref range); CALCIUM 8.7 mg/dL (8.5-10.1); CARBON DIOXIDE,CO2 22 mmol/L (21-32); CHLORIDE,CL 107 mmol/L (98-107); CREATININE 0.81 mg/dL (0.55-1.02); EST CRCL DRUG DOSING (CG) 64.79 mL/min; GLUCOSE RANDOM 93 mg/dL (70-99); LIPASE 46 U/L (16-77); MAGNESIUM 1.5 mg/dL (1.8-2.4); POTASSIUM,K 3.7 mmol/L (3.5-5.1); PROTEIN TOTAL,TP 7.5 g/dL (6.4-8.2); SODIUM,NA 140 mmol/L (136-145)
[2024-01-04 00:19] LABS: A/G RATIO 0.63; ESTIMATED GFR 90 mL/min (>=60); ETHANOL BLOOD MEDICAL < 3 mg/dL (0)
[2024-01-04 00:29] LABS: APPEARANCE,URINE SLIGHTLY CLOUDY (CLEAR); BILIRUBIN,URINE SMALL (NEGATIVE); COLOR,URINE DARK YELLOW (YELLOW); GLUCOSE,URINE NEGATIVE (NEGATIVE); KETONES,URINE NEGATIVE (NEGATIVE); LEUKOCYTE ESTERASE,URINE SMALL (NEGATIVE); NITRITE,URINE NEGATIVE (NEGATIVE); OCCULT BLOOD,URINE LARGE (NEGATIVE); PH,URINE 6.5 (5.0-9.0); PROTEIN,URINE 100 (NEGATIVE)
[2024-01-04 00:31] LABS: AMPHETAMINES,URINE NEGATIVE (NEGATIVE); BARBITURATES,URINE POSITIVE (NEGATIVE); BENZODIAZEPINE,URINE NEGATIVE (NEGATIVE); MDMA (ECSTASY), URINE NEGATIVE (NEGATIVE); METHADONE,URINE NEGATIVE (NEGATIVE); METHAMPHETAMINES,URINE NEGATIVE (NEGATIVE); OPIATES,URINE NEGATIVE (NEGATIVE); OXYCODONE,URINE NEGATIVE (NEGATIVE); PHENCYCLIDINE,URINE NEGATIVE (NEGATIVE); TCA,URINE NEGATIVE (NEGATIVE)
[2024-01-04 00:34] LABS: INR 1.6 (0.9-1.2); PROTHROMBIN TIME 15.8 SEC (9.0-12.0); PTT,PARTIAL THROMBOPLSTIN TIME 29.9 SEC (22.0-34.0)
[2024-01-04 01:06] LABS: EPITHELIAL CELLS,URINE MODERATE /HPF (NOT SEEN); RBC,URINE SEMI-PACKED /HPF (0-5); WBC,URINE 50-75 /HPF (0-5/HPF)
[2024-01-04 01:07] LABS: BACTERIA,URINE FEW /HPF (0-FEW/HPF); MUCUS,URINE MANY /LPF (NOT SEEN)
[2024-01-04] MEDS: Magnesium Sulfate/Water 2 GM in Premix Bag 1 BAG IV SCH (01:13)
[2024-01-04] MEDS: Sodium Chloride 0.9% 1,000 ML IV SCH (02:11)
[2024-01-04] MEDS: Lactulose Soln 10 GM/15 ML 30 ML UD Cup PO ONE (02:11)
[2024-01-04] MEDS: LORazepam 2 MG/ML SDV IVPUSH PRN (02:12)
[2024-01-04] MEDS ORDERED: Midodrine 5 MG Tab PO PRN (06:44)
[2024-01-04] MEDS ORDERED: Promethazine 25 MG/ML SDV IM PRN (06:51)
[2024-01-04] MEDS ORDERED: Ondansetron 4 MG/2 ML SDV IVPUSH PRN (06:51)
[2024-01-04] MEDS ORDERED: Naloxone 2 MG/2 ML Syringe IVPUSH PRN (06:51)
[2024-01-04] MEDS ORDERED: HYDROmorphone 0.5 MG/0.5 ML Syringe IVPUSH PRN (06:51)
[2024-01-04] MEDS ORDERED: Albuterol/Ipratropium 3.0-0.5 MG/3 ML Neb Soln NEB PRN (06:51)
[2024-01-04] MEDS: Phytonadione 10 MG in Sodium Chloride 0.9% 50 ML IV ONE (09:10)
[2024-01-04] MEDS: MVI, Adult with Vitamin K 10 ML, Folic Acid 1 MG, Thiamine 100 MG in Lactated Ringers 1... IV ONE (09:19)
[2024-01-04] MEDS: Pantoprazole 40 MG Vial IVPUSH ONE (09:22)
[2024-01-04] MEDS: Rifaximin 550 MG Tab PO SCH (09:22)
[2024-01-04] MEDS: Acetaminophen 325 MG Tab PO PRN (12:33)
[2024-01-04] MEDS: Lactulose Soln 10 GM/15 ML 30 ML UD Cup PO SCH (13:35)
[2024-01-04] MEDS: Pantoprazole 40 MG Tab.CR PO SCH (17:23)
[2024-01-04] MEDS: Acetaminophen/HYDROcodone 325-5 MG Tab PO PRN (21:21)
[2024-01-04] MEDS: Magnesium Oxide 400 MG Tab PO SCH (21:22)
[2024-01-04] MEDS: Ascorbic Acid 500 MG Tab PO SCH (21:22)
[2024-01-05 05:46] LABS: BASOPHILS PERCENT AUTO 0.4 % (0.0-1.0); EOSINOPHILS PERCENT AUTO 5.7 % (1.0-3.0); HEMATOCRIT 29.3 % (37.0-47.0); HEMOGLOBIN 9.7 g/dL (12.0-16.0); LYMPHOCYTES PERCENT AUTO 46.5 % (20.5-50.1); MEAN CORPUSCULAR HEMOGLOBIN 33.6 pg (27.0-34.0); MEAN CORPUSCULAR HGB CONC 33.1 g/dL (33.0-35.0); MEAN CORPUSCULAR VOLUME 101.4 fL (80-100); MONOCYTES PERCENT AUTO 15.1 % (2-8); NEUTROPHILS PERCENT AUTO 32.3 % (42.2-75.2); PLATELET COUNT,PLT 75 10^3/uL (150-450); RED BLOOD CELL COUNT 2.89 10^6/uL (4.2-5.4); WHITE BLOOD CELL COUNT,WBC 4.7 10^3/uL (5.0-10.0)
[2024-01-05 06:06] LABS: ALBUMIN 2.2 g/dL (3.4-5.0); ANION GAP 13.6 mEq/L (7-13); BILIRUBIN TOTAL 1.9 mg/dL (0.2-1.0); BUN/CREATININE RATIO 23.9 (No establ ref range); CREATININE 0.67 mg/dL (0.55-1.02); EST CRCL DRUG DOSING (CG) 85.87 mL/min; MAGNESIUM 1.4 mg/dL (1.8-2.4); POTASSIUM,K 3.6 mmol/L (3.5-5.1); PROTEIN TOTAL,TP 6.1 g/dL (6.4-8.2)
[2024-01-05 06:06] LABS: INR 1.5 (0.9-1.2); PROTHROMBIN TIME 15.1 SEC (9.0-12.0)
[2024-01-05 06:10] LABS: A/G RATIO 0.56
[2024-01-05] MEDS: Phytonadione 5 MG Tab PO SCH (08:16)
[2024-01-05] MEDS: Magnesium Sulfate/Water 2 GM in Premix Bag 1 BAG IV ONE (09:13)
[2024-01-05] MEDS: Folic Acid 1 MG Tab PO SCH (20:00)
[2024-01-05] MEDS: Ferrous Sulfate 325 MG Tab PO SCH (20:00)
[2024-01-05] MEDS: Thiamine 100 MG Tab PO SCH (20:01)
[2024-01-05] MEDS: Multivitamins with Iron/Calcium/Folic Acid/Minerals Tab PO SCH (20:01)
[2024-01-06] MEDS: LORazepam 1 MG Tab PO PRN (00:18)
[2024-01-06 06:03] LABS: BASOPHILS PERCENT AUTO 0.3 % (0.0-1.0); HEMATOCRIT 29.4 % (37.0-47.0); HEMOGLOBIN 9.7 g/dL (12.0-16.0); LYMPHOCYTES PERCENT AUTO 42.4 % (20.5-50.1); MEAN CORPUSCULAR HEMOGLOBIN 33.3 pg (27.0-34.0); MONOCYTES PERCENT AUTO 17.7 % (2-8); NEUTROPHILS PERCENT AUTO 33.6 % (42.2-75.2); PLATELET COUNT,PLT 83 10^3/uL (150-450); RED BLOOD CELL COUNT 2.91 10^6/uL (4.2-5.4); WHITE BLOOD CELL COUNT,WBC 3.8 10^3/uL (5.0-10.0)
[2024-01-06 06:25] LABS: INR 1.5 (0.9-1.2); PROTHROMBIN TIME 15.3 SEC (9.0-12.0)
[2024-01-06 06:41] LABS: A/G RATIO 0.58; ALBUMIN 2.3 g/dL (3.4-5.0); ANION GAP 10.3 mEq/L (7-13); BUN/CREATININE RATIO 19.4 (No establ ref range); CREATININE 0.67 mg/dL (0.55-1.02); EST CRCL DRUG DOSING (CG) 85.87 mL/min; MAGNESIUM 1.5 mg/dL (1.8-2.4); POTASSIUM,K 3.3 mmol/L (3.5-5.1); PROTEIN TOTAL,TP 6.3 g/dL (6.4-8.2)
[2024-01-06] MEDS: Magnesium Sulfate/Water 2 GM in Premix Bag 1 BAG IV ONE (09:36)
[2024-01-06] MEDS: Potassium Chloride 10 MEQ Tab.ER PO ONE (11:58)
[2024-01-06] MEDS: Melatonin 3 MG Tab PO PRN (21:42)
[2024-01-07 06:33] LABS: BASOPHILS PERCENT AUTO 0.7 % (0.0-1.0); EOSINOPHILS PERCENT AUTO 7.1 % (1.0-3.0); HEMATOCRIT 30.3 % (37.0-47.0); HEMOGLOBIN 10.1 g/dL (12.0-16.0); LYMPHOCYTES PERCENT AUTO 52.6 % (20.5-50.1); MEAN CORPUSCULAR HEMOGLOBIN 33.3 pg (27.0-34.0); MEAN CORPUSCULAR HGB CONC 33.3 g/dL (33.0-35.0); MONOCYTES PERCENT AUTO 14.4 % (2-8); NEUTROPHILS PERCENT AUTO 25.2 % (42.2-75.2); PLATELET COUNT,PLT 82 10^3/uL (150-450); RED BLOOD CELL COUNT 3.03 10^6/uL (4.2-5.4); WHITE BLOOD CELL COUNT,WBC 4.1 10^3/uL (5.0-10.0)
[2024-01-07 06:58] LABS: INR 1.5 (0.9-1.2); PROTHROMBIN TIME 15.2 SEC (9.0-12.0)
[2024-01-07 07:02] LABS: ALBUMIN 2.4 g/dL (3.4-5.0); BILIRUBIN TOTAL 2.3 mg/dL (0.2-1.0); BUN/CREATININE RATIO 22.7 (No establ ref range); CALCIUM 8.4 mg/dL (8.5-10.1); CREATININE 0.66 mg/dL (0.55-1.02); EST CRCL DRUG DOSING (CG) 87.17 mL/min; MAGNESIUM 1.7 mg/dL (1.8-2.4); PROTEIN TOTAL,TP 6.4 g/dL (6.4-8.2)
[2024-01-07 07:03] LABS: A/G RATIO 0.6
[2024-01-07] MEDS: Magnesium Sulfate/Water 2 GM in Premix Bag 1 BAG IV ONE ×2 (08:23→12:53)
[2024-01-07] MEDS ORDERED: traMADol 50 MG Tab PO PRN (10:45)
[2024-01-07] MEDS: HYDROmorphone 0.5 MG/0.5 ML Syringe IVPUSH PRN (17:23)
[2024-01-07] MEDS: Acetaminophen/HYDROcodone 325-5 MG Tab PO PRN (20:52)
[2024-01-09 06:24] LABS: BASOPHILS PERCENT AUTO 0.3 % (0.0-1.0); EOSINOPHILS PERCENT AUTO 5.9 % (1.0-3.0); HEMATOCRIT 30.7 % (37.0-47.0); HEMOGLOBIN 10.3 g/dL (12.0-16.0); LYMPHOCYTES PERCENT AUTO 47.6 % (20.5-50.1); MEAN CORPUSCULAR HEMOGLOBIN 33.3 pg (27.0-34.0); MEAN CORPUSCULAR HGB CONC 33.6 g/dL (33.0-35.0); MEAN CORPUSCULAR VOLUME 99.4 fL (80-100); MONOCYTES PERCENT AUTO 13.8 % (2-8); NEUTROPHILS PERCENT AUTO 32.4 % (42.2-75.2); PLATELET COUNT,PLT 83 10^3/uL (150-450); RED BLOOD CELL COUNT 3.09 10^6/uL (4.2-5.4); WHITE BLOOD CELL COUNT,WBC 3.4 10^3/uL (5.0-10.0)
[2024-01-09 06:55] LABS: ALBUMIN 2.4 g/dL (3.4-5.0); ANION GAP 12.4 mEq/L (7-13); BILIRUBIN TOTAL 2.2 mg/dL (0.2-1.0); BUN/CREATININE RATIO 19.4 (No establ ref range); CALCIUM 8.4 mg/dL (8.5-10.1); CREATININE 0.62 mg/dL (0.55-1.02); EST CRCL DRUG DOSING (CG) 92.79 mL/min; MAGNESIUM 1.5 mg/dL (1.8-2.4); POTASSIUM,K 3.4 mmol/L (3.5-5.1); PROTEIN TOTAL,TP 6.6 g/dL (6.4-8.2)
[2024-01-09 06:58] LABS: A/G RATIO 0.57
[2024-01-09] MEDS: Potassium Chloride 10 MEQ Tab.ER PO ONE (10:55)
[2024-01-09] MEDS: Magnesium Sulfate/Water 2 GM in Premix Bag 1 BAG IV ONE ×2 (12:18→21:46)
[2024-01-09] MEDS: Magnesium Oxide 400 MG Tab PO SCH (17:06)
[2024-01-09] MEDS: Potassium Chloride 10 MEQ Tab.ER PO SCH (21:45)
[2024-01-10] MEDS: Losartan 50 MG Tab PO SCH (11:13)
[2024-01-10] MEDS: Magnesium Sulfate/Water 2 GM in Premix Bag 1 BAG IV ONE (11:15)
[2024-01-10] MEDS: Furosemide 20 MG Tab PO SCH (12:10)
[2024-01-11 06:51] LABS: BASOPHILS PERCENT AUTO 0.7 % (0.0-1.0); EOSINOPHILS PERCENT AUTO 4.2 % (1.0-3.0); HEMATOCRIT 33.7 % (37.0-47.0); HEMOGLOBIN 11.3 g/dL (12.0-16.0); LYMPHOCYTES PERCENT AUTO 50.1 % (20.5-50.1); MEAN CORPUSCULAR HEMOGLOBIN 33.4 pg (27.0-34.0); MEAN CORPUSCULAR HGB CONC 33.5 g/dL (33.0-35.0); MEAN CORPUSCULAR VOLUME 99.7 fL (80-100); MONOCYTES PERCENT AUTO 13.9 % (2-8); NEUTROPHILS PERCENT AUTO 31.1 % (42.2-75.2); PLATELET COUNT,PLT 91 10^3/uL (150-450); RED BLOOD CELL COUNT 3.38 10^6/uL (4.2-5.4); WHITE BLOOD CELL COUNT,WBC 4.3 10^3/uL (5.0-10.0)
[2024-01-11 07:07] LABS: ALBUMIN 2.7 g/dL (3.4-5.0); ANION GAP 15.1 mEq/L (7-13); BILIRUBIN TOTAL 2.7 mg/dL (0.2-1.0); BUN/CREATININE RATIO 18.6 (No establ ref range); CALCIUM 9.4 mg/dL (8.5-10.1); CREATININE 0.7 mg/dL (0.55-1.02); EST CRCL DRUG DOSING (CG) 82.19 mL/min; MAGNESIUM 1.8 mg/dL (1.8-2.4); POTASSIUM,K 4.1 mmol/L (3.5-5.1); PROTEIN TOTAL,TP 7.1 g/dL (6.4-8.2)
[2024-01-11 07:12] LABS: A/G RATIO 0.61
[2024-01-11] MEDS: Magnesium Sulfate/Water 2 GM in Premix Bag 1 BAG IV ONE ×2 (11:12→20:36)
[2024-01-12 06:43] LABS: BASOPHILS PERCENT AUTO 0.5 % (0.0-1.0); EOSINOPHILS PERCENT AUTO 4.4 % (1.0-3.0); HEMATOCRIT 32.6 % (37.0-47.0); LYMPHOCYTES PERCENT AUTO 54.6 % (20.5-50.1); MEAN CORPUSCULAR HEMOGLOBIN 33.6 pg (27.0-34.0); MEAN CORPUSCULAR HGB CONC 33.7 g/dL (33.0-35.0); MEAN CORPUSCULAR VOLUME 99.7 fL (80-100); MONOCYTES PERCENT AUTO 12.6 % (2-8); NEUTROPHILS PERCENT AUTO 27.9 % (42.2-75.2); PLATELET COUNT,PLT 91 10^3/uL (150-450); RED BLOOD CELL COUNT 3.27 10^6/uL (4.2-5.4); WHITE BLOOD CELL COUNT,WBC 4.1 10^3/uL (5.0-10.0)
[2024-01-12 07:01] LABS: ALBUMIN 2.5 g/dL (3.4-5.0); ANION GAP 10.2 mEq/L (7-13); BILIRUBIN TOTAL 2.4 mg/dL (0.2-1.0); BUN/CREATININE RATIO 16.7 (No establ ref range); CALCIUM 9.1 mg/dL (8.5-10.1); CREATININE 0.78 mg/dL (0.55-1.02); EST CRCL DRUG DOSING (CG) 73.76 mL/min; MAGNESIUM 1.9 mg/dL (1.8-2.4); POTASSIUM,K 4.2 mmol/L (3.5-5.1); PROTEIN TOTAL,TP 6.6 g/dL (6.4-8.2)
[2024-01-12 07:04] LABS: A/G RATIO 0.61
[2024-01-13 06:21] LABS: BASOPHILS PERCENT AUTO 0.6 % (0.0-1.0); EOSINOPHILS PERCENT AUTO 3.7 % (1.0-3.0); HEMATOCRIT 33.8 % (37.0-47.0); HEMOGLOBIN 11.3 g/dL (12.0-16.0); LYMPHOCYTES PERCENT AUTO 56.3 % (20.5-50.1); MEAN CORPUSCULAR HEMOGLOBIN 33.2 pg (27.0-34.0); MEAN CORPUSCULAR HGB CONC 33.4 g/dL (33.0-35.0); MEAN CORPUSCULAR VOLUME 99.4 fL (80-100); MONOCYTES PERCENT AUTO 12.5 % (2-8); NEUTROPHILS PERCENT AUTO 26.9 % (42.2-75.2); PLATELET COUNT,PLT 95 10^3/uL (150-450); WHITE BLOOD CELL COUNT,WBC 4.9 10^3/uL (5.0-10.0)
[2024-01-13 06:51] LABS: ALBUMIN 2.7 g/dL (3.4-5.0); ANION GAP 11.1 mEq/L (7-13); BILIRUBIN TOTAL 2.4 mg/dL (0.2-1.0); BUN/CREATININE RATIO 22.5 (No establ ref range); CALCIUM 9.3 mg/dL (8.5-10.1); CREATININE 0.71 mg/dL (0.55-1.02); EST CRCL DRUG DOSING (CG) 81.03 mL/min; MAGNESIUM 1.7 mg/dL (1.8-2.4); POTASSIUM,K 4.1 mmol/L (3.5-5.1); PROTEIN TOTAL,TP 7.1 g/dL (6.4-8.2)
[2024-01-13 06:54] LABS: A/G RATIO 0.61
[2024-01-13] MEDS: Magnesium Sulfate/Water 2 GM in Premix Bag 1 BAG IV ONE (11:55)
[2024-01-13] MEDS: Metoprolol Tartrate 5 MG/5 ML SDV IVPUSH PRN (16:06)
[2024-01-13] MEDS: hydrALAZINE 20 MG/ML SDV IVPUSH PRN (16:06)
[2024-01-13] MEDS: Lactulose Soln 10 GM/15 ML 30 ML UD Cup PO ONE (17:32)
[2024-01-13] MEDS: Ziprasidone Mesylate 20 MG Vial IM ONE (20:07)
[2024-01-13] MEDS: Lactated Ringers 1,000 ML IV SCH (20:30)
[2024-01-13] MEDS: Lactated Ringers 500 ML IV ONE (21:35)
[2024-01-13 23:34] LABS: BASOPHILS PERCENT AUTO 0.2 % (0.0-1.0); EOSINOPHILS PERCENT AUTO 1.1 % (1.0-3.0); HEMOGLOBIN 11.3 g/dL (12.0-16.0); LYMPHOCYTES PERCENT AUTO 48.8 % (20.5-50.1); MEAN CORPUSCULAR HEMOGLOBIN 33.2 pg (27.0-34.0); MEAN CORPUSCULAR HGB CONC 33.2 g/dL (33.0-35.0); MONOCYTES PERCENT AUTO 14.3 % (2-8); NEUTROPHILS PERCENT AUTO 35.6 % (42.2-75.2); PLATELET COUNT,PLT 80 10^3/uL (150-450); WHITE BLOOD CELL COUNT,WBC 4.6 10^3/uL (5.0-10.0)
[2024-01-13 23:36] LABS: APPEARANCE,URINE SLIGHTLY CLOUDY (CLEAR); BILIRUBIN,URINE NEGATIVE (NEGATIVE); COLOR,URINE YELLOW (YELLOW); GLUCOSE,URINE NEGATIVE (NEGATIVE); KETONES,URINE NEGATIVE (NEGATIVE); LEUKOCYTE ESTERASE,URINE NEGATIVE (NEGATIVE); NITRITE,URINE NEGATIVE (NEGATIVE); OCCULT BLOOD,URINE SMALL (NEGATIVE); PH,URINE 8.5 (5.0-9.0); PROTEIN,URINE NEGATIVE (NEGATIVE); UROBILINOGEN,URINE 0.2 mg/dL (0.2-1.0)
[2024-01-13 23:44] LABS: AMORPHOUS SEDIMENT,URINE MANY /HPF (NOT SEEN); BACTERIA,URINE FEW /HPF (0-FEW/HPF); EPITHELIAL CELLS,URINE FEW /HPF (NOT SEEN); RBC,URINE 50-75 /HPF (0-5)
[2024-01-13] MEDS: Ampicillin/Sulbactam Na 1.5 GM in Sodium Chloride 0.9% 100 ML IV SCH (23:47)
[2024-01-13 23:52] LABS: A/G RATIO 0.58; ALANINE AMINOTRANSFERASE,ALT 44 U/L (14-59); ALBUMIN 2.5 g/dL (3.4-5.0); ALKALINE PHOSPHATASE 152 U/L (46-116); ANION GAP 15.7 mEq/L (7-13); ASPARTATE AMNIOTRANSFERASE,AST 61 U/L (15-37); BILIRUBIN TOTAL 3.2 mg/dL (0.2-1.0); BLOOD UREA NITROGEN,BUN 17 mg/dL (7-18); BUN/CREATININE RATIO 19.1 (No establ ref range); C-REACTIVE PROTEIN < 0.50 ng/dL (<=0.50); CALCIUM 9.4 mg/dL (8.5-10.1); CARBON DIOXIDE,CO2 23 mmol/L (21-32); CHLORIDE,CL 106 mmol/L (98-107); CREATININE 0.89 mg/dL (0.55-1.02); EST CRCL DRUG DOSING (CG) 64.64 mL/min; ESTIMATED GFR 80 mL/min (>=60); GLUCOSE RANDOM 111 mg/dL (70-99); MAGNESIUM 2.2 mg/dL (1.8-2.4); POTASSIUM,K 3.7 mmol/L (3.5-5.1); PROTEIN TOTAL,TP 6.8 g/dL (6.4-8.2); SODIUM,NA 141 mmol/L (136-145)
[2024-01-13 23:58] LABS: LACTIC ACID 2.8 mmol/L (0.4-2.0)
[2024-01-14] MEDS: Hydrocortisone Sodium Succinate 100 MG/2 ML SDV IVPUSH SCH (00:05)
[2024-01-14] MEDS: Pantoprazole 40 MG Vial IVPUSH SCH (00:05)
[2024-01-14 06:38] LABS: HEMATOCRIT 34.8 % (37.0-47.0); HEMOGLOBIN 11.7 g/dL (12.0-16.0); LYMPHOCYTES PERCENT AUTO 33.5 % (20.5-50.1); MEAN CORPUSCULAR HGB CONC 33.6 g/dL (33.0-35.0); MEAN CORPUSCULAR VOLUME 101.2 fL (80-100); MONOCYTES PERCENT AUTO 4.7 % (2-8); NEUTROPHILS PERCENT AUTO 61.8 % (42.2-75.2); PLATELET COUNT,PLT 82 10^3/uL (150-450); RED BLOOD CELL COUNT 3.44 10^6/uL (4.2-5.4); WHITE BLOOD CELL COUNT,WBC 2.3 10^3/uL (5.0-10.0)
[2024-01-14 07:12] LABS: ALBUMIN 2.5 g/dL (3.4-5.0); ANION GAP 17.2 mEq/L (7-13); BILIRUBIN TOTAL 3.5 mg/dL (0.2-1.0); BUN/CREATININE RATIO 20.2 (No establ ref range); CALCIUM 9.5 mg/dL (8.5-10.1); CREATININE 0.84 mg/dL (0.55-1.02); EST CRCL DRUG DOSING (CG) 68.49 mL/min; MAGNESIUM 1.9 mg/dL (1.8-2.4); POTASSIUM,K 4.2 mmol/L (3.5-5.1); PROTEIN TOTAL,TP 7.2 g/dL (6.4-8.2)
[2024-01-14 07:15] LABS: A/G RATIO 0.53
[2024-01-14] MEDS: Midodrine 5 MG Tab PO SCH (08:20)
[2024-01-14] MEDS: Ketorolac 30 MG/ML SDV IVPUSH PRN (16:34)
[2024-01-14] MEDS: Ziprasidone Mesylate 20 MG Vial IM PRN (20:03)
[2024-01-15] MEDS: VANCOmycin 1.5 GM/300 ML 300 ML IV SCH (00:09)
[2024-01-15 06:45] LABS: HEMATOCRIT 29.5 % (37.0-47.0); HEMOGLOBIN 9.9 g/dL (12.0-16.0); LYMPHOCYTES PERCENT AUTO 11.4 % (20.5-50.1); MEAN CORPUSCULAR HGB CONC 33.6 g/dL (33.0-35.0); MEAN CORPUSCULAR VOLUME 101.4 fL (80-100); MONOCYTES PERCENT AUTO 4.8 % (2-8); NEUTROPHILS PERCENT AUTO 83.8 % (42.2-75.2); PLATELET COUNT,PLT 85 10^3/uL (150-450); RED BLOOD CELL COUNT 2.91 10^6/uL (4.2-5.4); WHITE BLOOD CELL COUNT,WBC 8.3 10^3/uL (5.0-10.0)
[2024-01-15 07:07] LABS: BUN/CREATININE RATIO 8.7 (No establ ref range); CREATININE 0.92 mg/dL (0.55-1.02); EST CRCL DRUG DOSING (CG) 62.53 mL/min; MAGNESIUM 1.5 mg/dL (1.8-2.4)
[2024-01-15 07:26] LABS: ALBUMIN 2.1 g/dL (3.4-5.0); BILIRUBIN TOTAL 1.9 mg/dL (0.2-1.0); CALCIUM 8.5 mg/dL (8.5-10.1)
[2024-01-15 07:32] LABS: A/G RATIO 0.54
[2024-01-15] MEDS: Ibuprofen 600 MG Tab PO PRN (08:16)
[2024-01-15] MEDS: Modafinil 100 MG Tab PO SCH (08:18)
[2024-01-15] MEDS: Magnesium Sulfate/Water 2 GM in Premix Bag 1 BAG IV ONE ×2 (08:19→13:10)
[2024-01-16 06:33] LABS: BASOPHILS PERCENT AUTO 0.1 % (0.0-1.0); HEMATOCRIT 29.7 % (37.0-47.0); HEMOGLOBIN 9.9 g/dL (12.0-16.0); MEAN CORPUSCULAR HEMOGLOBIN 33.7 pg (27.0-34.0); MEAN CORPUSCULAR HGB CONC 33.3 g/dL (33.0-35.0); MONOCYTES PERCENT AUTO 4.9 % (2-8); PLATELET COUNT,PLT 77 10^3/uL (150-450); RED BLOOD CELL COUNT 2.94 10^6/uL (4.2-5.4); WHITE BLOOD CELL COUNT,WBC 9.9 10^3/uL (5.0-10.0)
[2024-01-16 06:51] LABS: ALBUMIN 2.1 g/dL (3.4-5.0); ANION GAP 10.6 mEq/L (7-13); BILIRUBIN TOTAL 1.7 mg/dL (0.2-1.0); BUN/CREATININE RATIO 43.6 (No establ ref range); CALCIUM 8.5 mg/dL (8.5-10.1); CREATININE 0.78 mg/dL (0.55-1.02); EST CRCL DRUG DOSING (CG) 73.76 mL/min; MAGNESIUM 2.1 mg/dL (1.8-2.4); POTASSIUM,K 4.6 mmol/L (3.5-5.1)
[2024-01-16 07:11] LABS: A/G RATIO 0.54
[2024-01-16] MEDS: Midodrine 5 MG Tab PO SCH (20:36)
[2024-01-17 06:22] LABS: HEMOGLOBIN 9.7 g/dL (12.0-16.0); LYMPHOCYTES PERCENT AUTO 13.2 % (20.5-50.1); MEAN CORPUSCULAR HEMOGLOBIN 33.9 pg (27.0-34.0); MEAN CORPUSCULAR HGB CONC 33.4 g/dL (33.0-35.0); MEAN CORPUSCULAR VOLUME 101.4 fL (80-100); MONOCYTES PERCENT AUTO 10.7 % (2-8); NEUTROPHILS PERCENT AUTO 76.1 % (42.2-75.2); PLATELET COUNT,PLT 61 10^3/uL (150-450); RED BLOOD CELL COUNT 2.86 10^6/uL (4.2-5.4); WHITE BLOOD CELL COUNT,WBC 4.5 10^3/uL (5.0-10.0)
[2024-01-17 07:00] LABS: ALBUMIN 2.2 g/dL (3.4-5.0); ANION GAP 10.2 mEq/L (7-13); BILIRUBIN TOTAL 1.8 mg/dL (0.2-1.0); BUN/CREATININE RATIO 38.7 (No establ ref range); CALCIUM 8.4 mg/dL (8.5-10.1); CREATININE 0.75 mg/dL (0.55-1.02); EST CRCL DRUG DOSING (CG) 76.71 mL/min; POTASSIUM,K 4.2 mmol/L (3.5-5.1); PROTEIN TOTAL,TP 5.8 g/dL (6.4-8.2)
[2024-01-17 07:03] LABS: A/G RATIO 0.61
[2024-01-18] MEDS: Pantoprazole 40 MG Tab.CR PO SCH (17:10)
[2024-01-20 06:28] LABS: EOSINOPHILS PERCENT AUTO 4.2 % (1.0-3.0); HEMATOCRIT 26.3 % (37.0-47.0); HEMOGLOBIN 8.8 g/dL (12.0-16.0); LYMPHOCYTES PERCENT AUTO 37.3 % (20.5-50.1); MEAN CORPUSCULAR HGB CONC 33.5 g/dL (33.0-35.0); MEAN CORPUSCULAR VOLUME 101.5 fL (80-100); MONOCYTES PERCENT AUTO 15.8 % (2-8); NEUTROPHILS PERCENT AUTO 42.7 % (42.2-75.2); PLATELET COUNT,PLT 59 10^3/uL (150-450); RED BLOOD CELL COUNT 2.59 10^6/uL (4.2-5.4); WHITE BLOOD CELL COUNT,WBC 4.5 10^3/uL (5.0-10.0)
[2024-01-20 06:50] LABS: A/G RATIO 0.64; ALBUMIN 1.8 g/dL (3.4-5.0); BILIRUBIN TOTAL 2.2 mg/dL (0.2-1.0); BUN/CREATININE RATIO 32.3 (No establ ref range); CREATININE 0.65 mg/dL (0.55-1.02); EST CRCL DRUG DOSING (CG) 88.51 mL/min; MAGNESIUM 1.6 mg/dL (1.8-2.4); PROTEIN TOTAL,TP 4.6 g/dL (6.4-8.2)
[2024-01-20] MEDS ORDERED: QUEtiapine 25 MG Tab PO PRN (19:28)
[2024-01-21] MEDS: MVI, Adult with Vitamin K 10 ML, Folic Acid 1 MG, Thiamine 100 MG in Lactated Ringers 1... IV ONE (10:31)
[2024-01-21] MEDS: Magnesium Sulfate/Water 2 GM in Premix Bag 1 BAG IV ONE ×3 (11:34→16:52)
[2024-01-21 18:15] LABS: APPEARANCE,URINE CLOUDY (CLEAR); BILIRUBIN,URINE NEGATIVE (NEGATIVE); COLOR,URINE YELLOW (YELLOW); GLUCOSE,URINE NEGATIVE (NEGATIVE); KETONES,URINE NEGATIVE (NEGATIVE); LEUKOCYTE ESTERASE,URINE LARGE (NEGATIVE); NITRITE,URINE NEGATIVE (NEGATIVE); OCCULT BLOOD,URINE LARGE (NEGATIVE); PH,URINE 7.5 (5.0-9.0); PROTEIN,URINE TRACE (NEGATIVE); UROBILINOGEN,URINE 0.2 mg/dL (0.2-1.0)
[2024-01-21 18:24] LABS: AMORPHOUS SEDIMENT,URINE FEW /HPF (NOT SEEN); BACTERIA,URINE MANY /HPF (0-FEW/HPF); EPITHELIAL CELLS,URINE FEW /HPF (NOT SEEN); MUCUS,URINE FEW /LPF (NOT SEEN); RBC,URINE 20-30 /HPF (0-5); WBC,URINE 50-75 /HPF (0-5/HPF)
[2024-01-21] MEDS: cefTRIAXone 2 GM Vial IVPUSH ONE (19:58)
[2024-01-22 06:46] LABS: BASOPHILS PERCENT AUTO 0.1 % (0.0-1.0); EOSINOPHILS PERCENT AUTO 2.2 % (1.0-3.0); HEMATOCRIT 27.8 % (37.0-47.0); HEMOGLOBIN 9.4 g/dL (12.0-16.0); LYMPHOCYTES PERCENT AUTO 20.1 % (20.5-50.1); MEAN CORPUSCULAR HEMOGLOBIN 34.3 pg (27.0-34.0); MEAN CORPUSCULAR HGB CONC 33.8 g/dL (33.0-35.0); MEAN CORPUSCULAR VOLUME 101.5 fL (80-100); MONOCYTES PERCENT AUTO 18.4 % (2-8); NEUTROPHILS PERCENT AUTO 59.2 % (42.2-75.2); PLATELET COUNT,PLT 77 10^3/uL (150-450); RED BLOOD CELL COUNT 2.74 10^6/uL (4.2-5.4); WHITE BLOOD CELL COUNT,WBC 8.2 10^3/uL (5.0-10.0)
[2024-01-22 07:20] LABS: ALBUMIN 2.2 g/dL (3.4-5.0); ANION GAP 12.7 mEq/L (7-13); BILIRUBIN TOTAL 3.7 mg/dL (0.2-1.0); BUN/CREATININE RATIO 23.7 (No establ ref range); C-REACTIVE PROTEIN 0.87 ng/dL (<=0.50); CALCIUM 8.3 mg/dL (8.5-10.1); CREATININE 0.59 mg/dL (0.55-1.02); EST CRCL DRUG DOSING (CG) 97.51 mL/min; MAGNESIUM 1.7 mg/dL (1.8-2.4); POTASSIUM,K 3.7 mmol/L (3.5-5.1); PROTEIN TOTAL,TP 5.4 g/dL (6.4-8.2)
[2024-01-22 07:51] LABS: A/G RATIO 0.69
[2024-01-22] MEDS: cefTRIAXone 1 GM Vial IVPUSH SCH (08:30)
[2024-01-22] MEDS: Magnesium Sulfate/Water 2 GM in Premix Bag 1 BAG IV ONE (08:30)
[2024-01-22] MEDS: Saccharomyces Boulardii (Probiotic) 250 MG Cap PO SCH (19:48)
[2024-01-23] MEDS: Amoxicillin/Clavulanate K 875-125 MG Tab PO ONE (11:27)
[2024-01-23] MEDS: Magnesium Sulfate/Water 2 GM in Premix Bag 1 BAG IV ONE (14:02)
[2024-01-23] MEDS: Amoxicillin/Clavulanate K 875-125 MG Tab PO SCH (22:38)
[2024-01-24 06:57] LABS: BASOPHILS PERCENT AUTO 0.4 % (0.0-1.0); EOSINOPHILS PERCENT AUTO 3.8 % (1.0-3.0); HEMATOCRIT 28.2 % (37.0-47.0); HEMOGLOBIN 9.4 g/dL (12.0-16.0); LYMPHOCYTES PERCENT AUTO 36.9 % (20.5-50.1); MEAN CORPUSCULAR HEMOGLOBIN 34.6 pg (27.0-34.0); MEAN CORPUSCULAR HGB CONC 33.3 g/dL (33.0-35.0); MEAN CORPUSCULAR VOLUME 103.7 fL (80-100); MONOCYTES PERCENT AUTO 20.4 % (2-8); NEUTROPHILS PERCENT AUTO 38.5 % (42.2-75.2); PLATELET COUNT,PLT 81 10^3/uL (150-450); RED BLOOD CELL COUNT 2.72 10^6/uL (4.2-5.4)
[2024-01-24 07:12] LABS: ANION GAP 10.1 mEq/L (7-13); BILIRUBIN TOTAL 1.8 mg/dL (0.2-1.0); BUN/CREATININE RATIO 28.1 (No establ ref range); CALCIUM 7.8 mg/dL (8.5-10.1); CREATININE 0.64 mg/dL (0.55-1.02); EST CRCL DRUG DOSING (CG) 89.89 mL/min; MAGNESIUM 1.6 mg/dL (1.8-2.4); POTASSIUM,K 4.1 mmol/L (3.5-5.1); PROTEIN TOTAL,TP 5.1 g/dL (6.4-8.2)
[2024-01-24 07:27] LABS: A/G RATIO 0.65
[2024-01-24] MEDS: Magnesium Sulfate/Water 2 GM in Premix Bag 1 BAG IV ONE ×4 (09:17→18:09)
[2024-01-26 06:47] LABS: BASOPHILS PERCENT AUTO 0.4 % (0.0-1.0); EOSINOPHILS PERCENT AUTO 3.9 % (1.0-3.0); HEMATOCRIT 27.8 % (37.0-47.0); HEMOGLOBIN 9.3 g/dL (12.0-16.0); LYMPHOCYTES PERCENT AUTO 38.5 % (20.5-50.1); MEAN CORPUSCULAR HEMOGLOBIN 34.6 pg (27.0-34.0); MEAN CORPUSCULAR HGB CONC 33.5 g/dL (33.0-35.0); MEAN CORPUSCULAR VOLUME 103.3 fL (80-100); MONOCYTES PERCENT AUTO 15.2 % (2-8); PLATELET COUNT,PLT 86 10^3/uL (150-450); RED BLOOD CELL COUNT 2.69 10^6/uL (4.2-5.4); WHITE BLOOD CELL COUNT,WBC 4.7 10^3/uL (5.0-10.0)
[2024-01-26 07:14] LABS: ANION GAP 4.6 mEq/L (7-13); BILIRUBIN TOTAL 1.8 mg/dL (0.2-1.0); BUN/CREATININE RATIO 25.5 (No establ ref range); CREATININE 0.55 mg/dL (0.55-1.02); EST CRCL DRUG DOSING (CG) 104.6 mL/min; POTASSIUM,K 3.6 mmol/L (3.5-5.1); PROTEIN TOTAL,TP 5.3 g/dL (6.4-8.2)
[2024-01-26 07:17] LABS: A/G RATIO 0.61
[2024-01-27] MEDS: Sodium Chloride 0.9% 1,000 ML IV SCH (09:04)
[2024-01-27] MEDS: Albumin Human 50 GM in Premix Bag 1 BAG IV ONE (09:04)
[2024-01-29 06:58] LABS: ALBUMIN 2.3 g/dL (3.4-5.0); ANION GAP 11.2 mEq/L (7-13); BILIRUBIN TOTAL 1.6 mg/dL (0.2-1.0); BUN/CREATININE RATIO 30.8 (No establ ref range); CALCIUM 7.9 mg/dL (8.5-10.1); CREATININE 0.65 mg/dL (0.55-1.02); EST CRCL DRUG DOSING (CG) 88.51 mL/min; MAGNESIUM 1.6 mg/dL (1.8-2.4); POTASSIUM,K 4.2 mmol/L (3.5-5.1); PROTEIN TOTAL,TP 4.9 g/dL (6.4-8.2)
[2024-01-29 07:01] LABS: A/G RATIO 0.88
[2024-01-31 12:57] LABS: ANION GAP 10.2 mEq/L (7-13); CALCIUM 8.1 mg/dL (8.5-10.1); CREATININE 0.76 mg/dL (0.55-1.02); EST CRCL DRUG DOSING (CG) 75.7 mL/min; POTASSIUM,K 4.2 mmol/L (3.5-5.1)
== END 2024-02-01 14:51 | disposition swing bed (61) | DRG 432 ==
LOC: DL.ED 21:45 → DL.MS 01-04 01:04
PROVIDERS: ADMIT Internal Medicine; ATTEND Internal Medicine
DX: K70.30 Alcoholic cirrhosis of liver without ascites (principal); G93.41 Metabolic encephalopathy; E72.20 Disorder of urea cycle metabolism, unspecified; E44.0 Moderate protein-calorie malnutrition; D68.4 Acquired coagulation factor deficiency; N39.0 Urinary tract infection, site not specified; E87.20 Acidosis, unspecified; K76.82 Hepatic encephalopathy; D50.9 Iron deficiency anemia, unspecified; G89.29 Other chronic pain; M54.9 Dorsalgia, unspecified; M19.90 Unspecified osteoarthritis, unspecified site; G25.81 Restless legs syndrome; I10 Essential (primary) hypertension; G47.30 Sleep apnea, unspecified; H54.7 Unspecified visual loss; F41.0 Panic disorder [episodic paroxysmal anxiety]; F32.A Depression, unspecified; Z91.148 Patient's other noncompliance with medication regimen for other reason; D69.6 Thrombocytopenia, unspecified; F19.10 Other psychoactive substance abuse, uncomplicated; R26.9 Unspecified abnormalities of gait and mobility; E83.42 Hypomagnesemia; E80.6 Other disorders of bilirubin metabolism; E87.6 Hypokalemia; B96.1 Klebsiella pneumoniae [K. pneumoniae] as the cause of diseases classified elsewhere; I95.9 Hypotension, unspecified; F10.20 Alcohol dependence, uncomplicated; E87.8 Other disorders of electrolyte and fluid balance, not elsewhere classified; Z87.891 Personal history of nicotine dependence; Z88.5 Allergy status to narcotic agent; Z79.82 Long term (current) use of aspirin; Z79.899 Other long term (current) drug therapy; Z86.73 Personal history of transient ischemic attack (TIA), and cerebral infarction without residual deficits; Z86.16 Personal history of COVID-19; Z90.49 Acquired absence of other specified parts of digestive tract; Z98.890 Other specified postprocedural states; Z87.81 Personal history of (healed) traumatic fracture
CPT/HCPCS: 36415; 51702; 70450; 71045; 73060-RT; 80048; 80053; 80202; 80305-QW; 80307; 81001; 82140; 82947; 83605; 83690; 83735; 84145; 85025; 85610; 85730; 86140; 87086; 87088; 87186; 93306; 97110-GO; 97110-GP; 97116-GP; 97140-GO; 97161-GP; 97165-GO; 97530-GP; 99223; 99232; 99233; 99239; 99285; A9270-GY; C1729; J0295; J0360; J0696; J1170; J1720; J1885; J2060; J2470; J3370; J3372; J3411; J3430; J3475; J3486; J3490; J7030; J7050; J7120; P9047

== ENCOUNTER 2024-01-29 15:43 | Inpatient (IN) | payer MEDICAID ==
[2024-02-01] MEDS ORDERED: Sodium Chloride 0.9% 10 ML Syringe FLUSH PRN (12:30)
[2024-02-01] MEDS ORDERED: Metoprolol Tartrate 5 MG/5 ML SDV IVPUSH PRN (12:30)
[2024-02-01] MEDS ORDERED: Albuterol/Ipratropium 3.0-0.5 MG/3 ML Neb Soln NEB PRN (12:30)
[2024-02-01] MEDS ORDERED: hydrALAZINE 20 MG/ML SDV IVPUSH PRN (12:30)
[2024-02-01] MEDS ORDERED: Acetaminophen 325 MG Tab PO PRN (12:30)
[2024-02-01] MEDS ORDERED: Naloxone 2 MG/2 ML Syringe IVPUSH PRN (12:30)
[2024-02-01] MEDS: Lactulose Soln 10 GM/15 ML 30 ML UD Cup PO SCH (15:05)
[2024-02-01] MEDS: Pantoprazole 40 MG Tab.CR PO SCH (15:51)
[2024-02-01] MEDS: Midodrine 5 MG Tab PO SCH (17:32)
[2024-02-01] MEDS: Magnesium Oxide 400 MG Tab PO SCH (17:32)
[2024-02-01] MEDS: Potassium Chloride 10 MEQ Tab.ER PO SCH (20:18)
[2024-02-01] MEDS: Folic Acid 1 MG Tab PO SCH (20:18)
[2024-02-01] MEDS: Rifaximin 550 MG Tab PO SCH (20:19)
[2024-02-01] MEDS: Saccharomyces Boulardii (Probiotic) 250 MG Cap PO SCH (20:19)
[2024-02-01] MEDS: Ibuprofen 600 MG Tab PO PRN (20:19)
[2024-02-01] MEDS: Ascorbic Acid 500 MG Tab PO SCH (20:19)
[2024-02-01] MEDS: Ferrous Sulfate 325 MG Tab PO SCH (20:20)
[2024-02-02] MEDS: Thiamine 100 MG Tab PO SCH (08:29)
[2024-02-02] MEDS: Modafinil 100 MG Tab PO SCH (08:29)
[2024-02-02] MEDS: Multivitamins with Iron/Calcium/Folic Acid/Minerals Tab PO SCH (08:29)
[2024-02-02] MEDS: Ziprasidone HCl 20 MG Cap PO ONE (21:26)
[2024-02-02] MEDS: Ondansetron 4 MG Tab.DIS PO PRN (22:54)
[2024-02-03] MEDS: Melatonin 3 MG Tab PO PRN (19:52)
[2024-02-03] MEDS: Promethazine 25 MG/ML SDV IM PRN (19:56)
== END 2024-02-04 10:00 | DRG 948 ==
LOC: DL.MS 02-01 12:33 → UNDOADMIN 02-01 14:51
PROVIDERS: ADMIT Internal Medicine; ATTEND Internal Medicine
DX: R53.81 Other malaise (principal); D68.4 Acquired coagulation factor deficiency; E44.0 Moderate protein-calorie malnutrition; N39.0 Urinary tract infection, site not specified; S42.301D Unspecified fracture of shaft of humerus, right arm, subsequent encounter for fracture with routine healing; H54.7 Unspecified visual loss; I10 Essential (primary) hypertension; G47.00 Insomnia, unspecified; M19.90 Unspecified osteoarthritis, unspecified site; M54.9 Dorsalgia, unspecified; G89.29 Other chronic pain; F41.9 Anxiety disorder, unspecified; F32.A Depression, unspecified; D69.6 Thrombocytopenia, unspecified; E88.09 Other disorders of plasma-protein metabolism, not elsewhere classified; K74.60 Unspecified cirrhosis of liver; B96.1 Klebsiella pneumoniae [K. pneumoniae] as the cause of diseases classified elsewhere; E83.42 Hypomagnesemia; X58.XXXD Exposure to other specified factors, subsequent encounter; Z88.5 Allergy status to narcotic agent; Z88.8 Allergy status to other drugs, medicaments and biological substances; Z79.899 Other long term (current) drug therapy; Z79.82 Long term (current) use of aspirin; Z87.440 Personal history of urinary (tract) infections; Z86.73 Personal history of transient ischemic attack (TIA), and cerebral infarction without residual deficits; Z86.16 Personal history of COVID-19; Z90.49 Acquired absence of other specified parts of digestive tract; Z87.891 Personal history of nicotine dependence
CPT/HCPCS: 97110-GO; 97161-GP; 97165-GO; A9270-GY; J2550

== ENCOUNTER 2024-02-27 08:55 | Emergency (ER) | payer MEDICAID ==
[2024-02-27 09:31] LABS: MEAN CORPUSCULAR HEMOGLOBIN 33.8 pg (27.0-34.0); MEAN CORPUSCULAR HGB CONC 29.6 g/dL (33.0-35.0); MEAN CORPUSCULAR VOLUME 114.4 fL (80-100); PLATELET COUNT,PLT 163 10^3/uL (150-450); RED BLOOD CELL COUNT 1.39 10^6/uL (4.2-5.4); WHITE BLOOD CELL COUNT,WBC 17.7 10^3/uL (5.0-10.0)
[2024-02-27 09:35] LABS: APPEARANCE,URINE SLIGHTLY CLOUDY (CLEAR); BILIRUBIN,URINE NEGATIVE (NEGATIVE); COLOR,URINE YELLOW (YELLOW); GLUCOSE,URINE NEGATIVE (NEGATIVE); KETONES,URINE NEGATIVE (NEGATIVE); LEUKOCYTE ESTERASE,URINE SMALL (NEGATIVE); NITRITE,URINE NEGATIVE (NEGATIVE); OCCULT BLOOD,URINE MODERATE (NEGATIVE); PROTEIN,URINE TRACE (NEGATIVE); UROBILINOGEN,URINE 0.2 mg/dL (0.2-1.0)
[2024-02-27 09:39] LABS: BASOPHILS PERCENT AUTO 0.2 % (0.0-1.0); EOSINOPHILS PERCENT AUTO 0.1 % (1.0-3.0); HEMATOCRIT 15.9 % (37.0-47.0); HEMOGLOBIN 4.7 g/dL (12.0-16.0); LYMPHOCYTES PERCENT AUTO 6.5 % (20.5-50.1); MONOCYTES PERCENT AUTO 9.6 % (2-8); NEUTROPHILS PERCENT AUTO 83.6 % (42.2-75.2)
[2024-02-27 09:40] LABS: BARBITURATES,URINE NEGATIVE (NEGATIVE); BENZODIAZEPINE,URINE NEGATIVE (NEGATIVE); MDMA (ECSTASY), URINE NEGATIVE (NEGATIVE); METHADONE,URINE NEGATIVE (NEGATIVE); METHAMPHETAMINES,URINE NEGATIVE (NEGATIVE); OPIATES,URINE NEGATIVE (NEGATIVE); TCA,URINE NEGATIVE (NEGATIVE)
[2024-02-27 09:41] LABS: AMPHETAMINES,URINE NEGATIVE (NEGATIVE); OXYCODONE,URINE NEGATIVE (NEGATIVE); PHENCYCLIDINE,URINE NEGATIVE (NEGATIVE)
[2024-02-27 09:52] LABS: INR 1.4 (0.9-1.2); PROTHROMBIN TIME 14.4 SEC (9.0-12.0); PTT,PARTIAL THROMBOPLSTIN TIME 23.6 SEC (22.0-34.0)
[2024-02-27 09:55] LABS: ACETAMINOPHEN 4 ug/mL (10-30 (Therapeutic)); ALANINE AMINOTRANSFERASE,ALT 21 U/L (14-59); ALBUMIN 1.7 g/dL (3.4-5.0); ALKALINE PHOSPHATASE 179 U/L (46-116); ANION GAP 18.5 mEq/L (7-13); ASPARTATE AMNIOTRANSFERASE,AST 35 U/L (15-37); BILIRUBIN TOTAL 1.6 mg/dL (0.2-1.0); BLOOD UREA NITROGEN,BUN 42 mg/dL (7-18); CALCIUM 7.7 mg/dL (8.5-10.1); CARBON DIOXIDE,CO2 16 mmol/L (21-32); CHLORIDE,CL 111 mmol/L (98-107); CREATININE 1.45 mg/dL (0.55-1.02); GLUCOSE RANDOM 101 mg/dL (70-99); LIPASE 42 U/L (16-77); MAGNESIUM 2.4 mg/dL (1.8-2.4); POTASSIUM,K 5.5 mmol/L (3.5-5.1); PROTEIN TOTAL,TP 4.9 g/dL (6.4-8.2); SODIUM,NA 140 mmol/L (136-145)
[2024-02-27 10:00] LABS: A/G RATIO 0.53; ESTIMATED GFR 45 mL/min (>=60); ETHANOL BLOOD MEDICAL < 3 mg/dL (0)
[2024-02-27] MEDS: Sodium Chloride 0.9% 250 ML IV SCH (10:23)
[2024-02-27 10:33] LABS: LYMPHOCYTES PERCENT MAN 7 % (20-50); MONOCYTES PERCENT MAN 5 % (2-8); SEG NEUTROPHILS PERCENT MAN 88 % (42-75)
[2024-02-27] MEDS: Pantoprazole 40 MG Vial IVPUSH ONE (10:39)
[2024-02-27 10:41] LABS: O2 DELIVERY DEVICE ROOM AIR
[2024-02-27 10:43] LABS: O2 SATURATION ARTERIAL 100 % (95-100); PCO2 ARTERIAL 21 mmHg (35-45); PH,ARTERIAL 7.41 (7.35-7.45); PO2 ARTERIAL 111 mmHg (70-100)
[2024-02-27 10:44] LABS: ALLEN TEST PERFORMED; BASE EXCESS ARTERIAL -11 mmol/L ((-2)-(+3)); BICARBONATE,ARTERIAL 13.2 mmol/L (22-26)
[2024-02-27] MEDS: cefTRIAXone 2 GM Vial IVPUSH ONE (10:48)
[2024-02-27 10:49] LABS: WBC,URINE 20-30 /HPF (0-5/HPF)
[2024-02-27 10:50] LABS: BACTERIA,URINE MANY /HPF (0-FEW/HPF); EPITHELIAL CELLS,URINE MODERATE /HPF (NOT SEEN)
[2024-02-27] MEDS: Octreotide 100 MCG/ML SDV IVPUSH ONE (11:03)
[2024-02-27] MEDS: Octreotide 100 MCG in Sodium Chloride 0.9% 99 ML IV SCH (11:05)
== END 2024-02-27 12:40 ==
LOC: DL.ED 08:55
DX: D72.825 Bandemia (principal); K70.31 Alcoholic cirrhosis of liver with ascites; E72.20 Disorder of urea cycle metabolism, unspecified; E87.5 Hyperkalemia; G93.41 Metabolic encephalopathy; K92.2 Gastrointestinal hemorrhage, unspecified; D62 Acute posthemorrhagic anemia; I10 Essential (primary) hypertension; Z86.73 Personal history of transient ischemic attack (TIA), and cerebral infarction without residual deficits; Z86.16 Personal history of COVID-19; Z79.82 Long term (current) use of aspirin; Z79.899 Other long term (current) drug therapy; Z88.5 Allergy status to narcotic agent
CPT/HCPCS: 36415; 36430; 36600; 80053; 80143; 80305-QW; 80307; 81001; 82140; 82272; 82803; 83690; 83735; 84484; 85025; 85610; 85730; 86850; 86900; 86901; 86920; 86922; 87040; 87086; 87088; 87186; 93005; 93010; 96361; 96365; 96375; 99285; 99285-25; J0696; J2354-JA; J2470; J3490; J7050; P9016

== ENCOUNTER 2024-03-17 11:15 | Emergency (ER) | payer MEDICAID ==
[2024-03-17] MEDS: Sodium Chloride 0.9% 10 ML Syringe FLUSH PRN (11:57)
[2024-03-17 12:02] LABS: BASOPHILS PERCENT AUTO 0.5 % (0.0-1.0); EOSINOPHILS PERCENT AUTO 3.2 % (1.0-3.0); HEMATOCRIT 30.9 % (37.0-47.0); HEMOGLOBIN 9.8 g/dL (12.0-16.0); LYMPHOCYTES PERCENT AUTO 34.3 % (20.5-50.1); MEAN CORPUSCULAR HEMOGLOBIN 31.4 pg (27.0-34.0); MEAN CORPUSCULAR HGB CONC 31.7 g/dL (33.0-35.0); MONOCYTES PERCENT AUTO 15.3 % (2-8); NEUTROPHILS PERCENT AUTO 46.7 % (42.2-75.2); PLATELET COUNT,PLT 108 10^3/uL (150-450); RED BLOOD CELL COUNT 3.12 10^6/uL (4.2-5.4); WHITE BLOOD CELL COUNT,WBC 4.3 10^3/uL (5.0-10.0)
[2024-03-17 12:15] LABS: B-TYPE NATRIURETIC PEPTIDE,BNP 14 pg/ml (0-100)
[2024-03-17 12:22] LABS: INR 1.4 (0.9-1.2); PTT,PARTIAL THROMBOPLSTIN TIME 27.6 SEC (22.0-34.0)
[2024-03-17 12:24] LABS: ALANINE AMINOTRANSFERASE,ALT 21 U/L (14-59); ALBUMIN 1.5 g/dL (3.4-5.0); ALKALINE PHOSPHATASE 167 U/L (46-116); ANION GAP 9.8 mEq/L (7-13); ASPARTATE AMNIOTRANSFERASE,AST 38 U/L (15-37); BILIRUBIN TOTAL 1.4 mg/dL (0.2-1.0); BLOOD UREA NITROGEN,BUN 13 mg/dL (7-18); C-REACTIVE PROTEIN 0.84 ng/dL (<=0.50); CALCIUM 7.6 mg/dL (8.5-10.1); CARBON DIOXIDE,CO2 25 mmol/L (21-32); CHLORIDE,CL 110 mmol/L (98-107); CREATININE 0.62 mg/dL (0.55-1.02); EST CRCL DRUG DOSING (CG) 84.65 mL/min; GLUCOSE RANDOM 106 mg/dL (70-99); LIPASE 33 U/L (16-77); POTASSIUM,K 3.8 mmol/L (3.5-5.1); PROTEIN TOTAL,TP 5.8 g/dL (6.4-8.2); SODIUM,NA 141 mmol/L (136-145)
[2024-03-17 12:27] LABS: LACTIC ACID 1.5 mmol/L (0.4-2.0)
[2024-03-17 12:34] LABS: A/G RATIO 0.35; ESTIMATED GFR 110 mL/min (>=60)
[2024-03-17] MEDS: Iopamidol 612 MG/ML 100 ML Bottle IVPUSH ONE (12:54)
[2024-03-17] MEDS: Lidocaine 1% 5 ML VIAL INJECT ONE (15:17)
[2024-03-17 16:28] LABS: BODY FLUID TYPE PERITONEAL FLUID; GLUCOSE,BODY FLUID 103
[2024-03-17 16:31] LABS: BODY FLUID TYPE PERITONEAL FLUID
[2024-03-17 16:57] LABS: PROTEIN,BODY FLUID < 2.0 mg/dL
[2024-03-21 11:43] LABS: BASO'S 0 /cu mm; EO'S 0 /cu mm; LYMPH'S 46 /cu mm; MONO'S 9 /cu mm; OTHER 11 /cu mm; PMN'S 48 /cu mm
== END 2024-03-17 16:15 | disposition home or self-care (01) ==
LOC: DL.ED 11:15
DX: K70.31 Alcoholic cirrhosis of liver with ascites (principal); J90 Pleural effusion, not elsewhere classified; I10 Essential (primary) hypertension; Z98.890 Other specified postprocedural states; Z86.16 Personal history of COVID-19; Z90.49 Acquired absence of other specified parts of digestive tract; Z79.899 Other long term (current) drug therapy; Z88.5 Allergy status to narcotic agent
CPT/HCPCS: 36415; 49083; 74177; 80053; 82140; 82945; 83605; 83690; 83880; 84145; 84157; 85025; 85610; 85730; 86140; 87070; 89051; 99284; 99285; Q9967; 89050; J3490

== ENCOUNTER 2024-05-08 10:36 | Emergency (ER) | payer MEDICAID ==
[2024-05-08] MEDS ORDERED: fentaNYL 250 MCG in Sodium Chloride 0.9% 250 ML IV ONE ×2 (10:37→13:56)
[2024-05-08 10:58] LABS: BASOPHILS PERCENT AUTO 0.7 % (0.0-1.0); EOSINOPHILS PERCENT AUTO 1.4 % (1.0-3.0); HEMATOCRIT 35.2 % (37.0-47.0); HEMOGLOBIN 12.2 g/dL (12.0-16.0); LYMPHOCYTES PERCENT AUTO 45.9 % (20.5-50.1); MEAN CORPUSCULAR HEMOGLOBIN 34.6 pg (27.0-34.0); MEAN CORPUSCULAR HGB CONC 34.7 g/dL (33.0-35.0); MEAN CORPUSCULAR VOLUME 99.7 fL (80-100); MONOCYTES PERCENT AUTO 10.7 % (2-8); NEUTROPHILS PERCENT AUTO 41.3 % (42.2-75.2); PLATELET COUNT,PLT 105 10^3/uL (150-450); RED BLOOD CELL COUNT 3.53 10^6/uL (4.2-5.4); WHITE BLOOD CELL COUNT,WBC 4.4 10^3/uL (5.0-10.0)
[2024-05-08 11:53] LABS: APPEARANCE,URINE CLEAR (CLEAR); BILIRUBIN,URINE NEGATIVE (NEGATIVE); COLOR,URINE YELLOW (YELLOW); GLUCOSE,URINE NEGATIVE (NEGATIVE); KETONES,URINE NEGATIVE (NEGATIVE); LEUKOCYTE ESTERASE,URINE NEGATIVE (NEGATIVE); NITRITE,URINE NEGATIVE (NEGATIVE); OCCULT BLOOD,URINE TRACE-INTACT (NEGATIVE); PH,URINE 8.5 (5.0-9.0); PROTEIN,URINE NEGATIVE (NEGATIVE); UROBILINOGEN,URINE 0.2 mg/dL (0.2-1.0)
[2024-05-08 12:00] LABS: AMPHETAMINES,URINE NEGATIVE (NEGATIVE); BARBITURATES,URINE NEGATIVE (NEGATIVE); BENZODIAZEPINE,URINE NEGATIVE (NEGATIVE); MDMA (ECSTASY), URINE NEGATIVE (NEGATIVE); METHADONE,URINE NEGATIVE (NEGATIVE); METHAMPHETAMINES,URINE NEGATIVE (NEGATIVE); OPIATES,URINE NEGATIVE (NEGATIVE); OXYCODONE,URINE NEGATIVE (NEGATIVE); PHENCYCLIDINE,URINE NEGATIVE (NEGATIVE); TCA,URINE NEGATIVE (NEGATIVE)
[2024-05-08 12:10] LABS: ALANINE AMINOTRANSFERASE,ALT 32 U/L (14-59); ALBUMIN 2.5 g/dL (3.4-5.0); ALKALINE PHOSPHATASE 207 U/L (46-116); ANION GAP 12.5 mEq/L (7-13); ASPARTATE AMNIOTRANSFERASE,AST 55 U/L (15-37); BILIRUBIN TOTAL 1.8 mg/dL (0.2-1.0); BLOOD UREA NITROGEN,BUN 18 mg/dL (7-18); BUN/CREATININE RATIO 25.4 (No establ ref range); CALCIUM 8.4 mg/dL (8.5-10.1); CARBON DIOXIDE,CO2 26 mmol/L (21-32); CHLORIDE,CL 109 mmol/L (98-107); CREATININE 0.71 mg/dL (0.55-1.02); EST CRCL DRUG DOSING (CG) 73.12 mL/min; GLUCOSE RANDOM 118 mg/dL (70-99); INR 1.4 (0.9-1.2); LIPASE 47 U/L (16-77); MAGNESIUM 1.7 mg/dL (1.8-2.4); POTASSIUM,K 4.5 mmol/L (3.5-5.1); PROTEIN TOTAL,TP 6.9 g/dL (6.4-8.2); PROTHROMBIN TIME 14.7 SEC (9.0-12.0); SODIUM,NA 143 mmol/L (136-145)
[2024-05-08 12:11] LABS: A/G RATIO 0.57; ESTIMATED GFR 105 mL/min (>=60); LACTIC ACID 2.3 mmol/L (0.4-2.0)
[2024-05-08 12:22] LABS: B-TYPE NATRIURETIC PEPTIDE,BNP < 5 pg/ml (0-100)
[2024-05-08 12:24] LABS: AMORPHOUS SEDIMENT,URINE MANY /HPF (NOT SEEN); BACTERIA,URINE MODERATE /HPF (0-FEW/HPF); EPITHELIAL CELLS,URINE MODERATE /HPF (NOT SEEN); MUCUS,URINE MODERATE /LPF (NOT SEEN)
[2024-05-08] MEDS: Sodium Chloride 0.9% 1,000 ML IV ONE (12:27)
[2024-05-08] MEDS: Lactulose Soln 10 GM/15 ML 946 ML Bottle RECTAL ONE (12:29)
[2024-05-08] MEDS ORDERED: fentaNYL 250 MCG/5 ML SDV ONE (12:55)
[2024-05-08] MEDS ORDERED: Midazolam 50 MG in Sodium Chloride 0.9% 40 ML IV SCH (13:00)
[2024-05-08] MEDS ORDERED: Rocuronium 100 MG/10 ML MDV IVPUSH ONE (13:00)
[2024-05-08] MEDS ORDERED: Etomidate 2 MG/ML 10 ML SDV IVPUSH ONE (13:00)
[2024-05-08 13:45] LABS: O2 DELIVERY DEVICE VENTILATOR; PH,ARTERIAL 7.32 (7.35-7.45)
[2024-05-08 13:46] LABS: BASE EXCESS ARTERIAL -7 mmol/L ((-2)-(+3)); BICARBONATE,ARTERIAL 18.3 mmol/L (22-26); O2 SATURATION ARTERIAL 100 % (95-100); PCO2 ARTERIAL 37 mmHg (35-45); PO2 ARTERIAL 281 mmHg (70-100)
[2024-05-08 13:47] LABS: ALLEN TEST PERFORMED
== END 2024-05-08 14:08 ==
LOC: DL.ED 10:36
DX: K92.1 Melena (principal); K76.82 Hepatic encephalopathy; I10 Essential (primary) hypertension; Z86.16 Personal history of COVID-19; Z90.49 Acquired absence of other specified parts of digestive tract; Z79.899 Other long term (current) drug therapy; Z79.82 Long term (current) use of aspirin; Z88.5 Allergy status to narcotic agent; Z88.8 Allergy status to other drugs, medicaments and biological substances
CPT/HCPCS: 31500; 36415; 36600; 43752; 51702; 70450; 71045; 80053; 80305-QW; 80307; 81001; 81025; 82140; 82272; 82803; 83605; 83690; 83735; 83880; 84145; 84484; 85025; 85610; 85730; 87040; 93005; 93010; 96361; 96374; 99285; 99285-25; J3010; J7030; J7050